=== PATIENT | female | born 1975 | race Caucasian/White ===

== ENCOUNTER → 2016-04-10 | Outpatient (CLI) | payer BC ==
--- NOTE | 2016-04-11 09:17 | MM ---
Reason for exam: screening (asymptomatic). Baseline mammogram. History: Patient is nulliparous. Physical Findings: Nurse did not find any significant physical abnormalities on exam. MG 3D Screening Mammo W/Cad Bilateral CC and MLO view(s) were taken. The breast tissue is heterogeneously dense. This may lower the sensitivity of mammography. Finding: There are typically benign round, diffuse/scattered calcifications in both breasts, greater in the left breast. There is no discrete abnormality. ASSESSMENT: Benign, BI-RAD 2 RECOMMENDATION: Routine screening mammogram of both breasts in 1 year.
== END | disposition home or self-care (01) ==
LOC: RADMAMWWP 07:07
PROVIDERS: ATTEND Obstetrics & Gynecology
DX: Z12.31 Encounter for screening mammogram for malignant neoplasm of breast (principal)
CPT/HCPCS: 77052; 77063; G0202

== ENCOUNTER → 2017-01-03 | Outpatient (CLI) | payer BC ==
[2017-01-03 17:37] LABS: Alternaria alternata IgE <0.10 kU/L; Aspergillus fumagatus IgE <0.10 kU/L; Cat Epith & Dander IgE <0.10 kU/L; Cladosporian herbarum IgE <0.10 kU/L; Dermato. farinae IgE <0.10 kU/L; Maple (Box Elder) IgE <0.10 kU/L; Orchard Grs(Cocksfoot) IgE <0.10 kU/L; Ragweed,Common IgE <0.10 kU/L
[2017-01-03 19:00] LABS: Clam IgE <0.10 kU/L; Egg White IgE <0.10 kU/L; Peanut IgE <0.10 kU/L; Scallop IgE <0.10 kU/L; Soybean IgE <0.10 kU/L
== END | disposition home or self-care (01) ==
LOC: LABWHC1 10:50
PROVIDERS: ATTEND Internal Medicine Critical Care Medicine
DX: R05 Cough (principal)
CPT/HCPCS: 36415; 82785; 86003

== ENCOUNTER → 2017-05-30 | Outpatient (CLI) | payer BC ==
--- NOTE | 2017-05-31 09:08 | MM ---
Reason for exam: screening (asymptomatic). Last mammogram was performed 1 year and 2 months ago. History: Patient is nulliparous. Physical Findings: A clinical breast exam by your physician is recommended on an annual basis and results should be correlated with mammographic findings. MG 3D Screening Mammo W/Cad Bilateral CC and MLO view(s) were taken. Prior study comparison: April 10, 2016, bilateral MG 3d screening mammo w/cad. The breast tissue is heterogeneously dense. This may lower the sensitivity of mammography. There is no discrete abnormality. No significant changes when compared with prior studies. ASSESSMENT: Negative, BI-RAD 1 RECOMMENDATION: Routine screening mammogram of both breasts in 1 year. Manage patient on a clinical basis.
== END | disposition home or self-care (01) ==
LOC: RADMAMWWP 06:59
PROVIDERS: ATTEND Family Medicine
DX: Z12.31 Encounter for screening mammogram for malignant neoplasm of breast (principal)
CPT/HCPCS: 77063; 77067

== ENCOUNTER 2017-12-21 08:56 | Observation (INO) | payer BC ==
[2017-12-21 10:01] LABS: Basophils % (A) 0 %; Eosinophils # (A) 0.1 k/uL (0-0.7); Eosinophils % (A) 1 %; HCT 35.2 % (34.0-46.0); HGB 11.2 gm/dL (11.4-16.0); Hypochromasia Slight; Lymphocytes # (A) 0.8 k/uL (1.0-4.8); Lymphocytes % (A) 10 %; MCH 28.2 pg (25.0-35.0); MCHC 31.7 g/dL (31.0-37.0); Mean Platelet Volume 6.6; Monocytes # (A) 0.4 k/uL (0-1.0); Monocytes % (A) 5 %; Neutrophils # (A) 6.6 k/uL (1.3-7.7); Neutrophils % (A) 83 %; Platelet Count 354 k/uL (150-450); RBC 3.96 m/uL (3.80-5.40); RDW 14.3 % (11.5-15.5)
[2017-12-21 10:16] LABS: INR 1.1 (<1.2); Partial Thromboplastin Time 23.3 sec (22.0-30.0); Prothrombin Time 10.5 sec (9.0-12.0)
[2017-12-21] MEDS ORDERED: KETOROLAC 30 MG/ML 1 ML VIAL IVP STA (10:22)
--- NOTE | 2017-12-21 10:22 | XR ---
EXAMINATION TYPE: XR chest 2V DATE OF EXAM: 12/21/2017 COMPARISON: Chest x-ray October 16, 2011. HISTORY: Chest pain for one month. History of asthma. TECHNIQUE: Frontal and lateral views of the chest are obtained. FINDINGS: There is no focal air space opacity, pleural effusion, or pneumothorax seen. The cardiac silhouette size is within normal limits. The osseous structures are intact. IMPRESSION: No acute cardiopulmonary process. No significant change from prior studies.
[2017-12-21] MEDS ORDERED: SODIUM CHLORIDE 0.9% 500 ML IV ONE (10:23)
--- NOTE | 2017-12-21 10:25 | ED ---
General Adult HPI - General Chief complaint: Chest Pain Stated complaint: A-Fib Time Seen by Provider: 12/21/17 09:04 Source: patient, RN notes reviewed, old records reviewed Mode of arrival: ambulatory Limitations: no limitations - History of Present Illness Initial comments: 42-year-old female presenting with left-sided chest pain. Patient was scheduled for an outpatient stress test this morning, she was unable to make this appointment secondary to worsening pain. She has had this left-sided chest pain for the past one month. It has been. Although somewhat intermittent throughout the day. It is nonexertional. Patient has no known history of CAD. She does have history of A. fib status post ablation. She is not currently on any medication. She does report some dyspnea associated with the pain. Pain is under her left breast radiates to the left shoulder. Pain is described as sharp in nature. - Related Data Home Medications Medication Instructions Recorded Confirmed Acetaminophen Tab [Tylenol Tab] 1,000 mg PO Q6HR 12/21/17 12/21/17 Budesonide [Rhinocort Allergy] 2 spr EA NOSTRIL DAILY 12/21/17 12/21/17 Flecainide Acetate 100 mg PO DAILY PRN 12/21/17 12/21/17 Fluticasone/Vilanterol [Breo 1 puff INHALATION RT-DAILY 12/21/17 12/21/17 Ellipta 100-25 Mcg Inhaler] Metoprolol Tartrate [Lopressor] 25 mg PO DAILY PRN 12/21/17 12/21/17 Omeprazole 20 mg PO DAILY 12/21/17 12/21/17 Allergies Allergy/AdvReac Type Severity Reaction Status Date / Time Tetanus Vaccines and Toxoid Allergy severe Verified 12/21/17 09:11 [Tetanus Vaccines & Toxoid] swelling and redness venom-honey bee Allergy Anaphylaxis Verified 12/21/17 09:11 [bee venom (honey bee)] Androgenic Anabolic Steroid AdvReac Mild Itching Verified 12/21/17 09:11 adhesive AdvReac Itching Verified 12/21/17 09:11 Review of Systems ROS Statement: Those systems with pertinent positive or pertinent negative responses have been documented in the HPI. ROS Other: All systems not noted in ROS Statement are negative. Past Medical History Past Medical History: AFIB Additional Past Medical History / Comment(s): afib History of Any Multi-Drug Resistant Organisms: None Reported Past Surgical History: Adenoidectomy, Cholecystectomy, Tonsillectomy Additional Past Surgical History / Comment(s): right knee, cardiac ablation Past Psychological History: No Psychological Hx Reported Smoking Status: Never smoker Past Alcohol Use History: None Reported Past Drug Use History: None Reported General Exam Limitations: no limitations General appearance: alert, in no apparent distress Head exam: Present: atraumatic, normocephalic Eye exam: Present: normal appearance, PERRL Neck exam: Present: normal inspection, tenderness Respiratory exam: Present: normal lung sounds bilaterally, chest wall tenderness. Absent: respiratory distress, wheezes Cardiovascular Exam: Present: regular rate, normal rhythm GI/Abdominal exam: Present: soft. Absent: distended, tenderness Extremities exam: Present: normal inspection, normal capillary refill. Absent: pedal edema, calf tenderness Back exam: Present: normal inspection, full ROM Neurological exam: Present: alert, oriented X3, CN II-XII intact. Absent: motor sensory deficit Psychiatric exam: Present: normal affect, normal mood Skin exam: Present: warm, dry, intact. Absent: cyanosis, diaphoretic Course Vital Signs 12/21/17 12/21/17 08:58 10:29 Temperature 98.6 F Pulse Rate 103 H 85 Respiratory 22 Rate Blood Pressure 123/79 147/77 O2 Sat by Pulse 99 97 Oximetry EKG Findings - EKG Comments: EKG Findings:: EKG: Normal sinus rhythm, ventricular rate of 82, OK interval 152 , QRS duration 92, QTC 372, QTC 434, no ST segment elevation or depression, there is baseline artifact, no definitive signs of ischemia Medical Decision Making - Medical Decision Making 42-year-old female presenting with left-sided chest pain. Patient was scheduled for a stress test today, she was unable to make this appointment secondary to worsening pain. Workup in the emergency department reveals normal CBC, normal CMP, negative d-dimer, negative initial troponin. Chest x-ray negative for any acute cardiopulmonary disease. Case is discussed with the patient's primary care physician Dr. Carrasco. Plan to admit patient for cardiology consultation, and serial cardiac enzymes. - Lab Data Result diagrams: 12/21/17 08:50 12/21/17 08:50 Lab Results 12/21/17 12/21/17 12/21/17 Range/Units 08:50 08:50 08:50 WBC 8.0 (3.8-10.6) k/uL RBC 3.96 (3.80-5.40) m/uL Hgb 11.2 L (11.4-16.0) gm/dL Hct 35.2 (34.0-46.0) % MCV 89.0 (80.0-100.0) fL MCH 28.2 (25.0-35.0) pg MCHC 31.7 (31.0-37.0) g/dL RDW 14.3 (11.5-15.5) % Plt Count 354 (150-450) k/uL Neutrophils % 83 % Lymphocytes % 10 % Monocytes % 5 % Eosinophils % 1 % Basophils % 0 % Neutrophils # 6.6 (1.3-7.7) k/uL Lymphocytes # 0.8 L (1.0-4.8) k/uL Monocytes # 0.4 (0-1.0) k/uL Eosinophils # 0.1 (0-0.7) k/uL Basophils # 0.0 (0-0.2) k/uL Hypochromasia Slight PT (9.0-12.0) sec INR (<1.2) APTT (22.0-30.0) sec D-Dimer (<0.60) mg/L FEU Sodium 140 (137-145) mmol/L Potassium 4.1 (3.5-5.1) mmol/L Chloride 109 H (98-107) mmol/L Carbon Dioxide 23 (22-30) mmol/L Anion Gap 8 mmol/L BUN 15 (7-17) mg/dL Creatinine 0.86 (0.52-1.04) mg/dL Est GFR (CKD-EPI)AfAm >90 (>60 ml/min/1.73 sqM) Est GFR (CKD-EPI)NonAf 85 (>60 ml/min/1.73 sqM) Glucose 113 H (74-99) mg/dL Calcium 9.4 (8.4-10.2) mg/dL Magnesium 1.7 (1.6-2.3) mg/dL Total Bilirubin 0.5 (0.2-1.3) mg/dL AST 18 (14-36) U/L ALT 21 (9-52) U/L Alkaline Phosphatase 46 (38-126) U/L Total Creatine Kinase 75 (30-135) U/L CK-MB (CK-2) 0.6 (0.0-2.4) ng/mL CK-MB (CK-2) Rel Index 0.8 Troponin I <0.012 (0.000-0.034) ng/mL Total Protein 6.7 (6.3-8.2) g/dL Albumin 3.9 (3.5-5.0) g/dL HCG, Quant <2.4 mIU/mL 12/21/17 12/21/17 Range/Units 08:50 08:50 WBC (3.8-10.6) k/uL RBC (3.80-5.40) m/uL Hgb (11.4-16.0) gm/dL Hct (34.0-46.0) % MCV (80.0-100.0) fL MCH (25.0-35.0) pg MCHC (31.0-37.0) g/dL RDW (11.5-15.5) % Plt Count (150-450) k/uL Neutrophils % % Lymphocytes % % Monocytes % % Eosinophils % % Basophils % % Neutrophils # (1.3-7.7) k/uL Lymphocytes # (1.0-4.8) k/uL Monocytes # (0-1.0) k/uL Eosinophils # (0-0.7) k/uL Basophils # (0-0.2) k/uL Hypochromasia PT 10.5 (9.0-12.0) sec INR 1.1 (<1.2) APTT 23.3 (22.0-30.0) sec D-Dimer 0.20 (<0.60) mg/L FEU Sodium (137-145) mmol/L Potassium (3.5-5.1) mmol/L Chloride (98-107) mmol/L Carbon Dioxide (22-30) mmol/L Anion Gap mmol/L BUN (7-17) mg/dL Creatinine (0.52-1.04) mg/dL Est GFR (CKD-EPI)AfAm (>60 ml/min/1.73 sqM) Est GFR (CKD-EPI)NonAf (>60 ml/min/1.73 sqM) Glucose (74-99) mg/dL Calcium (8.4-10.2) mg/dL Magnesium (1.6-2.3) mg/dL Total Bilirubin (0.2-1.3) mg/dL AST (14-36) U/L ALT (9-52) U/L Alkaline Phosphatase (38-126) U/L Total Creatine Kinase (30-135) U/L CK-MB (CK-2) (0.0-2.4) ng/mL CK-MB (CK-2) Rel Index Troponin I (0.000-0.034) ng/mL Total Protein (6.3-8.2) g/dL Albumin (3.5-5.0) g/dL HCG, Quant mIU/mL Disposition Clinical Impression: Chest pain Disposition: ADMITTED IP TO THIS HOSP Condition: Stable Is patient prescribed a controlled substance at d/c from ED?: No Referrals: Roger Carrasco MD [Primary Care Provider] - 1-2 days Decision to Admit Reason: Admit from EC Decision Date: 12/21/17 Decision Time: 12:07
[2017-12-21 10:26] LABS: ALT 21 U/L (9-52); AST 18 U/L (14-36); Albumin 3.9 g/dL (3.5-5.0); Alkaline Phosphatase 46 U/L (38-126); Anion Gap 8 mmol/L; Blood Urea Nitrogen 15 mg/dL (7-17); Calcium 9.4 mg/dL (8.4-10.2); Carbon Dioxide 23 mmol/L (22-30); Chloride 109 mmol/L (98-107); Glucose 113 mg/dL (74-99); Magnesium 1.7 mg/dL (1.6-2.3); Potassium 4.1 mmol/L (3.5-5.1); Sodium 140 mmol/L (137-145); Total Bilirubin 0.5 mg/dL (0.2-1.3); Total Protein 6.7 g/dL (6.3-8.2)
[2017-12-21 10:27] LABS: Creatine Kinase 75 U/L (30-135)
[2017-12-21 10:38] LABS: Creatine Kinase MB 0.6 ng/mL (0.0-2.4); Troponin I <0.012 ng/mL (0.000-0.034)
[2017-12-21 10:42] LABS: HCG,Quantitative Serum <2.4 mIU/mL
[2017-12-21] MEDS ORDERED: ACETAMINOPHEN TAB 325 MG TAB PO PRN (12:04)
[2017-12-21] MEDS ORDERED: NALOXONE 0.4 MG/ML 1 ML VIAL IV PRN (12:04)
[2017-12-21] MEDS ORDERED: ONDANSETRON 4 MG/2 ML VIAL IVP PRN (12:04)
[2017-12-21] MEDS ORDERED: METOPROLOL TARTRATE 25 MG TAB PO PRN (14:06)
[2017-12-21] MEDS ORDERED: FLECAINIDE 50 MG TAB PO PRN (14:06)
[2017-12-21] MEDS: ACETAMINOPHEN TAB 500 MG TAB PO SCH (18:36)
[2017-12-21] MEDS: IBUPROFEN 400 MG TAB PO PRN (18:37)
[2017-12-21] MEDS ORDERED: TEMAZEPAM 15 MG CAP PO PRN (23:22)
[2017-12-22 00:44] LABS: Creatine Kinase MB 0.4 ng/mL (0.0-2.4); Troponin I <0.012 ng/mL (0.000-0.034)
[2017-12-22 00:56] LABS: Creatine Kinase 58 U/L (30-135)
[2017-12-22] MEDS: ACETAMINOPHEN TAB 500 MG TAB PO SCH ×6 (02:55→23:04)
[2017-12-22] MEDS: PANTOPRAZOLE 40 MG TABLET PO SCH (07:51)
[2017-12-22] MEDS: FLUTICASONE 50MCG/SPRAY NASAL 16GM EA NOSTRIL SCH (07:52)
[2017-12-22] MEDS: SYMBICORT 80-4.5 MCG INHALER INHALATION SCH ×2 (08:09→20:14)
[2017-12-22] MEDS: IBUPROFEN 400 MG TAB PO PRN (09:50)
--- NOTE | 2017-12-22 10:16 | P.CRDCN ---
History of Present Illness Consult date: 12/22/17 History of present illness: This is a 42-year-old female with history of atrial fibrillation and also supra ventricular tachycardia being followed by Dr. Gupta. Patient is currently being treated with when necessary metoprolol and flecainide combination. Over the last month the patient has been having left-sided chest pain. The pain is felt over the entire left chest areas of soreness and tenderness. Not clearly associated with any exertional activities. Some radiation to the neck. Associated with some shortness of breath. She was supposed to have his outpatient stress test but because of continued chest pain patient came to the hospital. Since admission her EKGs have been normal. Cardiac enzyme studies have been negative. Pains are partially relieved with Tylenol and Motrin. Pains appear to be atypical. We'll proceed with a stress echocardiogram to rule out any underlying ischemic heart disease. Review of Systems As per the chart Past Medical History Past Medical History: Atrial Fibrillation, Asthma, Supraventricular Tachycardia (SVT), Syncope Additional Past Medical History / Comment(s): 2004 pt changed light bulb at work and was eletricuted-pt states caused problems with afib/svt/palpitations/ depression and dry eyes. Other hx: sinus problems, pre-ulcers as a child. History of Any Multi-Drug Resistant Organisms: None Reported Past Surgical History: Adenoidectomy, Cardiac Ablation, Cholecystectomy, Orthopedic Surgery Additional Past Surgical History / Comment(s): 06/04/06 cardiac ablation, right knee arthroscopy, D&C with hysteroscopy, possibly an egd as a child, wisdom teeth extractions. Past Anesthesia/Blood Transfusion Reactions: Motion Sickness, Postoperative Nausea & Vomiting (PONV) Additional Past Anesthesia/Blood Transfusion Reaction / Comment(s): Pt states she woke during cardiac ablation. Smoking Status: Never smoker - Past Family History Father Family Medical History: Hypertension Additional Family Medical History / Comment(s): Paternal grandfathe had lung cancer. Mother Family Medical History: No Reported History Additional Family Medical History / Comment(s): Maternal grandmother had heart problems and a pacer. Medications and Allergies Home Medications Medication Instructions Recorded Confirmed Type Acetaminophen Tab [Tylenol Tab] 1,000 mg PO Q6HR 12/21/17 12/21/17 History Budesonide [Rhinocort Allergy] 2 spr EA NOSTRIL DAILY 12/21/17 12/21/17 History Flecainide Acetate 100 mg PO DAILY PRN 12/21/17 12/21/17 History Fluticasone/Vilanterol [Breo 1 puff INHALATION RT-DAILY 12/21/17 12/21/17 History Ellipta 100-25 Mcg Inhaler] Metoprolol Tartrate [Lopressor] 25 mg PO DAILY PRN 12/21/17 12/21/17 History Omeprazole 20 mg PO DAILY 12/21/17 12/21/17 History Allergies Allergy/AdvReac Type Severity Reaction Status Date / Time Tetanus Vaccines and Toxoid Allergy severe Verified 12/21/17 09:11 [Tetanus Vaccines & Toxoid] swelling and redness venom-honey bee Allergy Anaphylaxis Verified 12/21/17 09:11 [bee venom (honey bee)] Androgenic Anabolic Steroid AdvReac Mild Itching Verified 12/21/17 09:11 adhesive AdvReac Itching Verified 12/21/17 09:11 Physical Exam Vitals: Vital Signs Temp Pulse Pulse Pulse Resp BP BP 12/22/17 08:00 98.7 F 74 18 118/79 12/22/17 03:50 16 12/22/17 03:15 98.3 F 65 16 102/62 12/21/17 23:39 16 12/21/17 23:15 98.1 F 76 16 103/66 12/21/17 20:00 82 16 12/21/17 19:20 98.8 F 82 16 121/80 12/21/17 16:00 18 12/21/17 15:49 98.6 F 64 18 115/74 12/21/17 12:55 97.5 F L 77 18 131/86 12/21/17 12:12 97.5 F L 70 20 127/78 12/21/17 10:29 85 147/77 Pulse Ox 12/22/17 08:00 98 12/22/17 03:50 12/22/17 03:15 99 12/21/17 23:39 12/21/17 23:15 98 12/21/17 20:00 12/21/17 19:20 98 12/21/17 16:00 12/21/17 15:49 99 12/21/17 12:55 100 12/21/17 12:12 97 12/21/17 10:29 97 Intake and Output 12/21/17 12/22/17 12/22/17 22:59 06:59 14:59 Other: Voiding Method Toilet Toilet # Voids 2 2 GENERAL EXAM: Patient is alert and oriented and doesn't appear to be in any acute distress HEENT: Normocephalic. Normal reaction of pupils, equal size, normal range of extraocular motion. No erythema or exudates in the throat. NECK: No masses, no nuchal rigidity. CHEST: No chest wall deformity. LUNGS: Equal air entry with no crackles or wheeze. HEART: S1 and S2 normal with no audible mumurs or gallops. Regular rhythm, femorals equal on both sides.. ABDOMEN: No hepatosplenomegaly, normal bowel sounds, no guarding or rigidity. SKIN: No rashes CENTRAL NERVOUS SYSTEM: No focal deficits. EXTREMITIES: No cyanosis, clubbing or edema. Results 12/21/17 08:50 12/21/17 08:50 Cardiac Enzymes 12/21/17 12/21/17 12/21/17 Range/Units 08:50 08:50 13:59 AST 18 (14-36) U/L CK-MB (CK-2) 0.6 (0.0-2.4) ng/mL Troponin I <0.012 <0.012 (0.000-0.034) ng/mL 12/21/17 Range/Units 23:33 AST (14-36) U/L CK-MB (CK-2) 0.4 (0.0-2.4) ng/mL Troponin I <0.012 (0.000-0.034) ng/mL Coagulation 12/21/17 Range/Units 08:50 PT 10.5 (9.0-12.0) sec APTT 23.3 (22.0-30.0) sec Comprehensive Metabolic Panel 12/21/17 Range/Units 08:50 Sodium 140 (137-145) mmol/L Potassium 4.1 (3.5-5.1) mmol/L Chloride 109 H (98-107) mmol/L Carbon Dioxide 23 (22-30) mmol/L BUN 15 (7-17) mg/dL Creatinine 0.86 (0.52-1.04) mg/dL Glucose 113 H (74-99) mg/dL Calcium 9.4 (8.4-10.2) mg/dL AST 18 (14-36) U/L ALT 21 (9-52) U/L Alkaline Phosphatase 46 (38-126) U/L Total Protein 6.7 (6.3-8.2) g/dL Albumin 3.9 (3.5-5.0) g/dL Current Medications Generic Name Dose Route Start Last Admin Trade Name Freq PRN Reason Stop Dose Admin Acetaminophen 1,000 mg 12/21/17 18:00 12/22/17 07:51 Tylenol Tab PO 1,000 mg Q6HR QUENTIN Administration Budesonide/Formoterol Fumarate 2 puff 12/22/17 08:00 12/22/17 08:09 Symbicort 80-4.5 Mcg Inhaler INHALATION 2 puff RT-BID QUENTIN Administration Flecainide Acetate 100 mg 12/21/17 14:06 Tambocor PO DAILY PRN PALPITIONS Fluticasone Propionate 1 spray 12/22/17 09:00 12/22/17 07:52 Flonase Nasal [place] EA NOSTRIL Not Given DAILY [facility] Ibuprofen 400 mg 12/21/17 12:04 12/22/17 09:50 Motrin PO 400 mg Q6HR PRN Administration Mild Pain or Fever > 100.5 Metoprolol Tartrate 25 mg 12/21/17 14:06 Lopressor PO DAILY PRN PALPITIONS Naloxone HCl 0.2 mg 12/21/17 12:04 Narcan IV Q2M PRN Opioid Reversal Ondansetron HCl 4 mg 12/21/17 12:04 Zofran IVP Q8HR PRN Nausea And Vomiting Pantoprazole Sodium 40 mg 12/22/17 07:30 12/22/17 07:51 Protonix PO 40 mg [id number] QUENTIN Administration Temazepam 15 mg 12/21/17 23:22 12/21/17 23:28 Restoril PO 15 mg HS PRN Administration Insomnia Intake and Output 12/21/17 12/22/17 12/22/17 22:59 06:59 14:59 Other: Voiding Method Toilet Toilet # Voids 2 2 12/21/17 08:50 12/21/17 08:50 EKG Interpretations (text) Sinus rhythm Assessment and Plan (1) History of atrial fibrillation Current Visit: Yes Status: Acute Code(s): Z86.79 - PERSONAL HISTORY OF OTHER DISEASES OF THE CIRCULATORY SYSTEM SNOMED Code(s): 472890667 (2) Chest pain Current Visit: Yes Status: Acute Code(s): R07.9 - CHEST PAIN, UNSPECIFIED SNOMED Code(s): 66966448 Plan: Patient chest pains are atypical. Cardiac enzyme studies are negative. EKG did not reveal any acute changes. We will proceed with stress echo.
--- NOTE | 2017-12-22 12:08 | P.HPIM ---
History of Present Illness 42-year-old pleasant female with a known history of SVT atrial fibrillation the past status post dilation by Dr. Shamar shirley with complaints of on and off chest pain has been going on for last few days varying duration LAD any last anywhere between 20 minutes to an hour sharp pain under the breast area left side radiating to the neck and left shoulder area disposition lightheadedness shortness of breath nonpleuritic denied any cough associated with that doesn't change with the chest wall movement although reproducible on exam. Denied any fever chills chest pain is of moderate severity partially relieved by Tylenol and Motrin. Patient denied any previous neck issues. Did have some radiation to neck. Patient was also complaining of some shortness of breath associated with that questionable pedal edema although not present at this time. Patient was evaluated cardiology EKG no significant abnormality patient is supposed to have a stress test as an outpatient. Review of Systems REVIEW OF SYSTEMS: CONSTITUTIONAL: No fever, no malaise, no fatigue. HEENT: No recent visual problems or hearing problems. Denied any sore throat. CARDIOVASCULAR: As mentioned in HPI PULMONARY, no cough, no hemoptysis. GASTROINTESTINAL: No diarrhea, no vomiting, no abdominal pain. Normoactive bowel sounds. NEUROLOGICAL: No headaches, no weakness, no numbness. HEMATOLOGICAL: Denies any bleeding or petechiae. GENITOURINARY: Denies any burning micturition, frequency, or urgency. MUSCULOSKELETAL/RHEUMATOLOGICAL: Denies any joint pain, swelling, or any muscle pain. ENDOCRINE: Denies any polyuria or polydipsia. The rest of the 14-point review of systems is negative. Past Medical History Past Medical History: Atrial Fibrillation, Asthma, Supraventricular Tachycardia (SVT), Syncope Additional Past Medical History / Comment(s): 2004 pt changed light bulb at work and was eletricuted-pt states caused problems with afib/svt/palpitations/ depression and dry eyes. Other hx: sinus problems, pre-ulcers as a child. History of Any Multi-Drug Resistant Organisms: None Reported Past Surgical History: Adenoidectomy, Cardiac Ablation, Cholecystectomy, Orthopedic Surgery Additional Past Surgical History / Comment(s): 06/04/06 cardiac ablation, right knee arthroscopy, D&C with hysteroscopy, possibly an egd as a child, wisdom teeth extractions. Past Anesthesia/Blood Transfusion Reactions: Motion Sickness, Postoperative Nausea & Vomiting (PONV) Additional Past Anesthesia/Blood Transfusion Reaction / Comment(s): Pt states she woke during cardiac ablation. Smoking Status: Never smoker - Past Family History Father Family Medical History: Hypertension Additional Family Medical History / Comment(s): Paternal grandfathe had lung cancer. Mother Family Medical History: No Reported History Additional Family Medical History / Comment(s): Maternal grandmother had heart problems and a pacer. Medications and Allergies Home Medications Medication Instructions Recorded Confirmed Type Acetaminophen Tab [Tylenol Tab] 1,000 mg PO Q6HR 12/21/17 12/21/17 History Budesonide [Rhinocort Allergy] 2 spr EA NOSTRIL DAILY 12/21/17 12/21/17 History Flecainide Acetate 100 mg PO DAILY PRN 12/21/17 12/21/17 History Fluticasone/Vilanterol [Breo 1 puff INHALATION RT-DAILY 12/21/17 12/21/17 History Ellipta 100-25 Mcg Inhaler] Metoprolol Tartrate [Lopressor] 25 mg PO DAILY PRN 12/21/17 12/21/17 History Omeprazole 20 mg PO DAILY 12/21/17 12/21/17 History Allergies Allergy/AdvReac Type Severity Reaction Status Date / Time Tetanus Vaccines and Toxoid Allergy severe Verified 12/21/17 09:11 [Tetanus Vaccines & Toxoid] swelling and redness venom-honey bee Allergy Anaphylaxis Verified 12/21/17 09:11 [bee venom (honey bee)] Androgenic Anabolic Steroid AdvReac Mild Itching Verified 12/21/17 09:11 adhesive AdvReac Itching Verified 12/21/17 09:11 Physical Exam Vitals: Vital Signs Temp Pulse Pulse Pulse Resp BP BP 12/22/17 08:00 98.7 F 74 18 118/79 12/22/17 03:50 16 12/22/17 03:15 98.3 F 65 16 102/62 12/21/17 23:39 16 12/21/17 23:15 98.1 F 76 16 103/66 12/21/17 20:00 82 16 12/21/17 19:20 98.8 F 82 16 121/80 12/21/17 16:00 18 12/21/17 15:49 98.6 F 64 18 115/74 12/21/17 12:55 97.5 F L 77 18 131/86 12/21/17 12:12 97.5 F L 70 20 127/78 Pulse Ox 12/22/17 08:00 98 12/22/17 03:50 12/22/17 03:15 99 12/21/17 23:39 12/21/17 23:15 98 12/21/17 20:00 12/21/17 19:20 98 12/21/17 16:00 12/21/17 15:49 99 12/21/17 12:55 100 12/21/17 12:12 97 Intake and Output 12/21/17 12/22/17 12/22/17 22:59 06:59 14:59 Other: Voiding Method Toilet Toilet # Voids 2 2 PHYSICAL EXAMINATION: GENERAL: The patient is alert and oriented x3, not in any acute distress. Well developed, well nourished. HEENT: Pupils are round and equally reacting to light. EOMI. No scleral icterus. No conjunctival pallor. Normocephalic, atraumatic. No pharyngeal erythema. No thyromegaly. CARDIOVASCULAR: S1 and S2 present. No murmurs, rubs, or gallops. Reproducible chest pain PULMONARY: Chest is clear to auscultation, no wheezing or crackles. ABDOMEN: Soft, nontender, nondistended, normoactive bowel sounds. No palpable organomegaly. MUSCULOSKELETAL: No joint swelling or deformity. EXTREMITIES: No cyanosis, clubbing, or pedal edema. NEUROLOGICAL: Gross neurological examination did not reveal any focal deficits. SKIN: No rashes. Results CBC & Chem 7: 12/21/17 08:50 12/21/17 08:50 Thrombosis Risk Factor Assmnt - Choose All That Apply Any of the Below Risk Factors Present?: Yes Each Factor Represents 1 point: Obesity (BMI >25) Other Risk Factors: No Other congenital or acquired thrombophilia - If yes, enter type in comment: No Thrombosis Risk Factor Assessment Total Risk Factor Score: 1 Thrombosis Risk Factor Assessment Level: Low Risk Assessment and Plan Plan: -Chest pain: Acute coronary syndromes was ruled out, patient will undergo stress test on Sunday does have typical as well as atypical features of cardiac chest pain. -History of SVT and atrial fibrillation in the past status post ablation not on any anticoagulation -Asthma without any acute exacerbation patient is not a smoker
[2017-12-22] MEDS: HYDROcodone/APAP 5-325MG 1 EACH TAB PO PRN (16:34)
[2017-12-23] MEDS: PANTOPRAZOLE 40 MG TABLET PO SCH (06:45)
[2017-12-23] MEDS: ACETAMINOPHEN TAB 500 MG TAB PO SCH ×4 (06:45→23:04)
[2017-12-23 07:13] LABS: Basophils % (A) 1 %; Eosinophils # (A) 0.1 k/uL (0-0.7); Eosinophils % (A) 2 %; HCT 36.9 % (34.0-46.0); HGB 11.3 gm/dL (11.4-16.0); Hypochromasia Slight; Lymphocytes # (A) 1.5 k/uL (1.0-4.8); Lymphocytes % (A) 26 %; MCH 27.5 pg (25.0-35.0); MCHC 30.6 g/dL (31.0-37.0); MCV 89.6 fL (80.0-100.0); Mean Platelet Volume 6.8; Monocytes # (A) 0.4 k/uL (0-1.0); Monocytes % (A) 7 %; Neutrophils # (A) 3.5 k/uL (1.3-7.7); Neutrophils % (A) 62 %; Platelet Count 320 k/uL (150-450); RBC 4.11 m/uL (3.80-5.40); RDW 14.4 % (11.5-15.5); WBC 5.7 k/uL (3.8-10.6)
[2017-12-23 07:24] LABS: Anion Gap 7 mmol/L; Blood Urea Nitrogen 17 mg/dL (7-17); Calcium 9.3 mg/dL (8.4-10.2); Carbon Dioxide 25 mmol/L (22-30); Chloride 107 mmol/L (98-107); Glucose 95 mg/dL (74-99); Potassium 4.5 mmol/L (3.5-5.1); Sodium 139 mmol/L (137-145)
[2017-12-23] MEDS: SYMBICORT 80-4.5 MCG INHALER INHALATION SCH ×2 (08:13→19:59)
[2017-12-23] MEDS: HYDROcodone/APAP 5-325MG 1 EACH TAB PO PRN ×2 (08:15→15:51)
--- NOTE | 2017-12-23 10:46 | P.PN ---
Subjective Progress Note Date: 12/23/17 This is a 42-year-old female with history of atrial fibrillation and also supra ventricular tachycardia being followed by Dr. Gupta. Patient is currently being treated with when necessary metoprolol and flecainide combination. Over the last month the patient has been having left-sided chest pain. The pain is felt over the entire left chest areas of soreness and tenderness. Not clearly associated with any exertional activities. Some radiation to the neck. Associated with some shortness of breath. She was supposed to have his outpatient stress test but because of continued chest pain patient came to the hospital. Since admission her EKGs have been normal. Cardiac enzyme studies have been negative. Pains are partially relieved with Tylenol and Motrin. Pains appear to be atypical. We'll proceed with a stress echocardiogram to rule out any underlying ischemic heart disease. 12/23/2017. The patient continues to describe anterior chest discomfort. She does some relief of the pain by lying flat in bed. She is being treated with Motrin and [place] as needed. Denies any shortness of breath, diaphoresis or nausea. EKG was normal and serial troponins negative. She is scheduled for stress echo tomorrow morning. She remains hemodynamically stable and in a normal sinus mechanism. No arrhythmia overnight. Objective - Vital Signs Vital signs: Vital Signs Temp 97.5 F L 12/23/17 04:00 Pulse 65 12/23/17 04:00 Resp 16 12/23/17 04:00 BP 115/57 12/23/17 04:00 Pulse Ox 98 12/23/17 08:13 Intake & Output 12/22/17 12/23/17 12/23/17 18:59 06:59 18:59 Intake Total 550 Balance 550 Intake: Oral 550 Other: Voiding Method Toilet Toilet # Voids 2 - Exam GENERAL EXAM: Patient is alert and oriented and doesn't appear to be in any acute distress HEENT: Normocephalic. Normal reaction of pupils, equal size, normal range of extraocular motion. No erythema or exudates in the throat. NECK: No masses, no nuchal rigidity. CHEST: No chest wall deformity. No tenderness. LUNGS: Equal air entry with no crackles or wheeze. HEART: S1 and S2 normal with no audible mumurs or gallops. Regular rhythm, femorals equal on both sides.. ABDOMEN: No hepatosplenomegaly, normal bowel sounds, no guarding or rigidity. SKIN: No rashes CENTRAL NERVOUS SYSTEM: No focal deficits. EXTREMITIES: No cyanosis, clubbing or edema. - Labs CBC & Chem 7: 12/23/17 06:50 12/23/17 06:50 Labs: Abnormal Lab Results - Last 24 Hours (Table) 12/23/17 Range/Units 06:50 Hgb 11.3 L (11.4-16.0) gm/dL MCHC 30.6 L (31.0-37.0) g/dL Assessment and Plan Assessment: Atypical chest pain History of arrhythmia in the form of SVT and atrial fibrillation Asthma Obesity Plan: Continue current medication regimen. Continue with Motrin and [place] for pain. Telemetry monitoring. We will proceed with stress echo tomorrow morning. Patient will be nothing by mouth after midnight. Further recommendations will he made depending on these results. ROD PLACER note has been reviewed. Agree with documented findings and plan of care. Patient was seen and examined.
[2017-12-23] MEDS: FLUTICASONE 50MCG/SPRAY NASAL 16GM EA NOSTRIL SCH (15:51)
--- NOTE | 2017-12-24 00:57 | P.PN ---
Subjective Progress Note Date: 12/23/17 Principal diagnosis: Chest pain 42-year-old pleasant female with a known history of SVT atrial fibrillation the past status post dilation by Dr. Shamar shirley with complaints of on and off chest pain has been going on for last few days varying duration LAD any last anywhere between 20 minutes to an hour sharp pain under the breast area left side radiating to the neck and left shoulder area disposition lightheadedness shortness of breath nonpleuritic denied any cough associated with that doesn't change with the chest wall movement although reproducible on exam. Denied any fever chills chest pain is of moderate severity partially relieved by Tylenol and Motrin. Patient denied any previous neck issues. Did have some radiation to neck. Patient was also complaining of some shortness of breath associated with that questionable pedal edema although not present at this time. Patient was evaluated cardiology EKG no significant abnormality patient is supposed to have a stress test as an outpatient. 12/23/2017 Patient says is still having chest pain mainly left retrosternal radiating to the left arm and neck. Chest pain somewhat improves with lying down flat. Denied any shortness of breath. No nausea vomiting or abdominal pain. Patient is being continued on Motrin and Dorr. Serial EKG and troponins 3 negative. D-dimer not elevated. Cardiology is planning for stress echocardiogram tomorrow. Otherwise patient denied any cough or sputum production. No fever no chills. No other acute overnight issues. No arrhythmia noted in the telemetry. Current medications reviewed. Objective - Vital Signs Vital signs: Vital Signs Temp 97.3 F L 12/23/17 10:45 Pulse 66 12/23/17 10:45 Resp 16 12/23/17 10:45 BP 107/56 12/23/17 10:45 Pulse Ox 98 12/23/17 10:45 Intake & Output 12/22/17 12/23/17 12/23/17 18:59 06:59 18:59 Intake Total 550 200 Balance 550 200 Intake: Oral 550 200 Other: Voiding Method Toilet Toilet Toilet # Voids 2 - Exam PHYSICAL EXAMINATION: Patient is lying in the bed comfortably, no acute distress, awake alert and oriented.. HEENT: Normocephalic. Neck is supple. Pupils reactive. Nostrils clear. Oral cavity is moist. Ears reveal no drainage. Neck reveals no JVD, carotid bruits, or thyromegaly. CHEST EXAMINATION: Trachea is central. Symmetrical expansion. Lung augustine clear to auscultation and percussion. CARDIAC: Normal S1, S2 with no gallops. No murmurs ABDOMEN: Soft. Bowel sounds normal. No organomegaly. No abdominal bruits. Extremities: reveal no edema. No clubbing or cyanosis Neurologically awake, alert, oriented x3 with well-coordinated movements. No focal deficits noted Skin: No rash or skin lesions. Psychiatric: Coperative. Nonsuicidal Musculoskeletal: No joint swelling or deformity. Normal range of motion. - Labs CBC & Chem 7: 12/23/17 06:50 12/23/17 06:50 Labs: Abnormal Lab Results - Last 24 Hours (Table) 12/23/17 Range/Units 06:50 Hgb 11.3 L (11.4-16.0) gm/dL MCHC 30.6 L (31.0-37.0) g/dL Assessment and Plan Assessment: Atypical chest pain. Ruled out ACS. Scheduled for stress echocardiogram on Sunday. History of SVT and atrial fibrillation status post ablation History of electrocution Asthma without exacerbation. DVT prophylaxis Plan: Patient will be continued on telemetry monitoring. Patient will be continued on flecainide. Continue with pain management in the form of Dorr and Motrin. Stress echocardiogram tomorrow. DVT prophylaxis. Further recommendations based on the clinical course. Time with Patient: Greater than 30
[2017-12-24] MEDS: ACETAMINOPHEN TAB 500 MG TAB PO SCH ×2 (05:20→13:38)
[2017-12-24] MEDS: PANTOPRAZOLE 40 MG TABLET PO SCH (06:20)
[2017-12-24 06:28] LABS: Basophils % (A) 1 %; Eosinophils # (A) 0.1 k/uL (0-0.7); Eosinophils % (A) 3 %; HCT 35.9 % (34.0-46.0); HGB 11.3 gm/dL (11.4-16.0); Hypochromasia Slight; Lymphocytes # (A) 1.6 k/uL (1.0-4.8); Lymphocytes % (A) 31 %; MCH 28.1 pg (25.0-35.0); MCHC 31.5 g/dL (31.0-37.0); Mean Platelet Volume 6.9; Monocytes # (A) 0.4 k/uL (0-1.0); Monocytes % (A) 8 %; Neutrophils # (A) 2.9 k/uL (1.3-7.7); Neutrophils % (A) 56 %; Platelet Count 316 k/uL (150-450); RBC 4.04 m/uL (3.80-5.40); RDW 14.2 % (11.5-15.5); WBC 5.2 k/uL (3.8-10.6)
[2017-12-24 06:42] LABS: Anion Gap 9 mmol/L; Blood Urea Nitrogen 17 mg/dL (7-17); Calcium 9.5 mg/dL (8.4-10.2); Carbon Dioxide 27 mmol/L (22-30); Chloride 102 mmol/L (98-107); Glucose 100 mg/dL (74-99); Potassium 4.7 mmol/L (3.5-5.1); Sodium 138 mmol/L (137-145)
[2017-12-24] MEDS: SYMBICORT 80-4.5 MCG INHALER INHALATION SCH (07:47)
[2017-12-24 07:48] VITALS: BP 112/66; RESP 16
[2017-12-24] MEDS: HYDROcodone/APAP 5-325MG 1 EACH TAB PO PRN (07:55)
[2017-12-24] MEDS ORDERED: HEPARIN SODIUM,PORCINE 5,000 UNIT/ML 1 ML VIAL SQ SCH (08:00)
[2017-12-24] MEDS: NITROGLYCERIN SL TABS 0.4 MG TAB SUBLINGUAL ONE ×2 (12:29→12:37)
[2017-12-24 12:31] VITALS: PULSE 74; TEMP 97.8
[2017-12-24] MEDS: FLUTICASONE 50MCG/SPRAY NASAL 16GM EA NOSTRIL SCH (12:36)
--- NOTE | 2017-12-24 12:51 | P.STRESS ---
- Stress Test Note Stress Test Results/Findings: Exam Performed: stress echo exercise Exam Date: 12/24/17 Reason for Exam: cp Height: 5 ft 10 in Weight: 105.6 kg Protocol: luis Stage: 3 Duration of Exercise: 8 min Resting Heart Rate: 73 Resting Blood Pressure: 132/63 Maximum Achieved Heart Rate: 154 Maximum Achieved Blood Pressure: 172/80 85% PMHR: 153 100% PMHR: 180 METS: 86 Technologist Comment: Stress Test Results/Findings: This is a 42-year-old female with history of chest pains and palpitations being evaluated for cardiac status. Stress data: Baseline EKG showed a sinus rhythm with normal CO interval and QRS duration. Blood pressure at rest is 132/63 with a pulse rate of 73. Patient walked on the Luis protocol for 9 minutes achieving a maximum heart rate of 154 with a blood pressure 172/80. EKGs taken during and after the stress test did not reveal any changes to sized ischemia. Rare PVCs were noted during exercise. Echo data. Her baseline echo images show normal wall motion and thickening. An exercise echo images showed augmentation of wall motion and thickening in all segments. Final impression: #1. Negative stress test #2. Negative stress echo.
--- NOTE | 2017-12-24 13:35 | P.PN ---
Subjective Patient is seen and examined resting comfortably laying flat in bed with mother at the bedside. She just completed her stress echocardiogram which was negative for stress-induced cardiac ischemic changes. She continues to complain of chest discomfort. Symptoms are most likely related to musculoskeletal strain. Blood pressure 112/66 heart rate 74 afebrile maintaining oxygen saturation on room air. She denies shortness of breath, dizziness, nausea, vomiting or palpitations. Objective - Vital Signs Vital signs: Vital Signs Temp 97.8 F 12/24/17 12:25 Pulse 74 12/24/17 12:25 Resp 16 12/24/17 12:25 BP 112/66 12/24/17 12:25 Pulse Ox 98 12/24/17 12:25 Intake & Output 12/23/17 12/24/17 12/24/17 18:59 06:59 18:59 Intake Total 750 300 Balance 750 300 Weight 105.6 kg Intake: Oral 750 300 Other: Voiding Method Toilet Toilet # Voids 2 2 - Exam GENERAL: Well-appearing, well-nourished and in no acute distress. NECK: Supple without JVD or thyromegaly. LUNGS: Breath sounds clear to auscultation bilaterally. Respiration equal and unlabored. No wheezes, rales or rhonchi. HEART: Regular rate and rhythm without murmurs, rubs or gallops. S1 and S2 heard. EXTREMITIES: Normal range of motion, no edema. No clubbing or cyanosis. Peripheral pulses intact. - Labs CBC & Chem 7: 12/24/17 05:55 12/24/17 05:55 Labs: Abnormal Lab Results - Last 24 Hours (Table) 12/24/17 12/24/17 Range/Units 05:55 05:55 Hgb 11.3 L (11.4-16.0) gm/dL Glucose 100 H (74-99) mg/dL Assessment and Plan Assessment: ASSESSMENT Chest pain, atypical. An acute coronary event has been ruled out with no EKG evidence of ischemia and negative cardiac enzymes. History of arrhythmia in the form of SVT and atrial fibrillation Asthma Obesity, BMI 33.4 PLAN Patient is stable from a cardiac perspective with a negative stress echocardiogram. She is requesting a refill of her flecainide and Lopressor which will be sent her pharmacy electronically. Follow-up with Dr. Gupta at next regularly scheduled appointment. Nurse Practitioner note has been reviewed, I agree with a documented findings and plan of care. Patient was seen and examined.
--- NOTE | 2017-12-24 18:18 | ECHOF ---
Referral Reason:chest pain MEASUREMENTS -------- HEIGHT: 177.8 cm WEIGHT: 105.2 kg BP: 112/66 RVIDd: 3.3 cm (< 3.3) IVSd: 1.1 cm (0.6 - 1.1) LVIDd: 3.9 cm (3.9 - 5.3) LVPWd: 1.2 cm (0.6 - 1.1) IVSs: 1.3 cm LVIDs: 2.5 cm LVPWs: 1.4 cm LAESV Index (A-L): 18.16 ml/m Ao Diam: 2.9 cm (2.0 - 3.7) AV Cusp: 2.2 cm (1.5 - 2.6) LA Diam: 3.2 cm (2.7 - 3.8) EPSS: 0.4 cm MV E Ruddy: 0.86 m/s MV DecT: 302 ms MV A Ruddy: 0.71 m/s MV E/A Ratio: 1.21 RAP: 5.00 mmHg RVSP: 18.35 mmHg MV EF SLOPE: 132.12 mm/s (70 - 150) MV EXCURSION: 1.95 cm (> 18.000) FINDINGS -------- Sinus rhythm. This was a technically good study. The left ventricular size is normal. There is borderline concentric left ventricular hypertrophy. Overall left ventricular systolic function is normal with, an EF between 55 - 60 %. The right ventricle is normal in size and function. Normal LA size by volume 22+/-6 ml/m2. The right atrium is normal in size. The aortic valve is trileaflet, and appears structurally normal. No aortic stenosis or regurgitation. The mitral valve leaflets are mildly thickened. There is trace to mild mitral regurgitation. Trace tricuspid regurgitation present. Right ventricular systolic pressure is normal at < 35 mmHg. There is no evidence of pulmonary hypertension. Trace/mild (physiologic) pulmonic regurgitation. The aortic root size is normal. Normal inferior vena cava with normal inspiratory collapse consistent with estimated right atrial pre ssure of 5 mmHg. There is no pericardial effusion. CONCLUSIONS -------- 1. Sinus rhythm. 2. This was a technically good study. 3. The left ventricular size is normal. 4. There is borderline concentric left ventricular hypertrophy. 5. Overall left ventricular systolic function is normal with, an EF between 55 - 60 %. 6. Normal LA size by volume 22+/-6 ml/m2. 7. The aortic valve is trileaflet, and appears structurally normal. No aortic stenosis or regurgitati on. 8. The mitral valve leaflets are mildly thickened. 9. There is trace to mild mitral regurgitation. 10. Trace tricuspid regurgitation present. 11. Right ventricular systolic pressure is normal at < 35 mmHg. 12. There is no evidence of pulmonary hypertension. 13. Trace/mild (physiologic) pulmonic regurgitation. 14. The aortic root size is normal. 15. There is no pericardial effusion. TRAVEL CLERK: Zenon Kirk RDCS
--- NOTE | 2017-12-26 12:17 | ECHOS ---
Stress Test Results/Findings: Exam Performed: stress echo exercise Exam Date: 12/24/17 Reason for Exam: cp Height: 5 ft 10 in Weight: 105.6 kg Protocol: luis Stage: 3 Duration of Exercise: 8 min Resting Heart Rate: 73 Resting Blood Pressure: 132/63 Maximum Achieved Heart Rate: 154 Maximum Achieved Blood Pressure: 172/80 85% PMHR: 153 100% PMHR: 180 METS: 86 Technologist Comment: Stress Test Results/Findings: This is a 42-year-old female with history of chest pains and palpitations being evaluated for cardiac status. Stress data: Baseline EKG showed a sinus rhythm with normal [place] interval and QRS duration. Blood pressure at rest is 132/63 with a pulse rate of 73. Patient walked on the Luis protocol for 9 minutes achieving a maximum heart rate of 154 with a blood pressure 172/80. EKGs taken during and after the stress test did not reveal any changes to sized ischemia. Rare PVCs were noted during exercise. Echo data. Her baseline echo images show normal wall motion and thickening. An exercise echo images showed augmentation of wall motion and thickening in all segments. Final impression: #1. Negative stress test #2. Negative stress echo. BAEN
== END 2017-12-24 16:25 | disposition home or self-care (01) ==
LOC: EC 08:56 → 3OBS 12:04 → 3SUR 18:46 → 6SEL 12-22 18:00
PROVIDERS: ADMIT Family Medicine; ATTEND Family Medicine
DX: R07.89 Other chest pain (principal); I48.91 Unspecified atrial fibrillation; I47.1 Supraventricular tachycardia; J45.909 Unspecified asthma, uncomplicated; H04.123 Dry eye syndrome of bilateral lacrimal glands; E66.9 Obesity, unspecified; Z68.33 Body mass index [BMI] 33.0-33.9, adult; Z79.51 Long term (current) use of inhaled steroids; Z79.899 Other long term (current) drug therapy; Z91.030 Bee allergy status; Z88.7 Allergy status to serum and vaccine; Z88.8 Allergy status to other drugs, medicaments and biological substances; Z91.048 Other nonmedicinal substance allergy status; Z87.828 Personal history of other (healed) physical injury and trauma; Z90.49 Acquired absence of other specified parts of digestive tract; Z82.49 Family history of ischemic heart disease and other diseases of the circulatory system; Z80.1 Family history of malignant neoplasm of trachea, bronchus and lung
CPT/HCPCS: 96361; 96374; 99285; 36415; 94640 ×5; 94760; 93005; 93306; 93351; 85379; 80053; 80048 ×2; 82550; 82553; 83735; 84484; 85025 ×3; 85610; 85730; 84702; 71046; G0378 ×4; J1885

== ENCOUNTER → 2018-01-10 | Day surgery (SDC) | payer BC ==
[2018-01-08 15:41] VITALS: BMI 33.3
[~2018-01-10] MED LIST: GLYCOPYRROLATE 0.2 MG/ML 2 ML VIAL ONE; LACTATED RINGERS 1,000 ML IV SCH; LIDOCAINE 1% 20 ML VIAL (10MG/ML) FOR IV START INTRADERMA ONE; LIDOCAINE 1% INJ 10MG/ML (20 ML MDV) ONE; PROPOFOL 10 MG/ML 20 ML VIAL IV ONE
[2018-01-10 11:34] VITALS: TEMP 98.2
--- NOTE | 2018-01-10 13:47 | P.PCN ---
Date of Procedure: 01/10/18 Procedure(s) Performed: Procedure: Esophagogastroduodenoscopy and biopsy. Preoperative diagnosis: Atypical chest pain. Postoperative diagnosis: 1. Very small sliding hiatal hernia with low grade distal esophagitis. 2. Mild antral gastritis. 3. Multiple biopsies obtained from the duodenum, antrum and esophagus. Preparation sedation: Were provided by anesthesia. Brief clinical history: The patient is a 43-year-old female who is referred for this evaluation because of atypical chest pain of 1 month duration. The patient has history of asthma and has been taking omeprazole for the possibility of reflux contributing to her asthma. Her chest pain was evaluated for possible cardiac etiology in light of her history of intermittent atrial fibrillation and tachycardia and that was negative. She denied dysphagia, odynophagia or bleeding. This evaluation is to assess for esophagitis or complicated reflux disease. Procedure: With the patient on her left lateral decubitus position and after informed consent and adequate sedation, the Olympus-GIF 160 video upper endoscope was used and was advanced under direct vision through the cricopharyngeus down the esophagus. GE junction was around 40 cm from the incisors and there was a very small sliding hiatal hernia less than 1 cm in size. The distal esophagus showed a short thin linear erosion but there were no ulcers or strictures or Quinones's esophagus. The endoscope was then passed into the stomach which was insufflated with air and inspected in detail including the retroflex view in the cardia. There was some mottling and erythema in the antrum but no ulcers or erosions. Pyloric channel, duodenal bulb, post bulbar area and descending duodenum appeared within normal limits. Because of her symptoms, I obtained biopsies from the duodenum, antrum and esophagus then the endoscope was withdrawn. The patient tolerated the procedure well. Plan: The patient was reassured. Will await biopsy results. She will continue her omeprazole and she will follow-up with you as planned. Further plans based on her course and biopsy results. I will be happy to see in the future if her symptoms persist.
[2018-01-10 13:50] VITALS: RESP 18
[2018-01-10 14:10] VITALS: BP 124/67; PULSE 78
== END ==
LOC: ORWHC2ENDO 11:03
DX: K29.50 Unspecified chronic gastritis without bleeding (principal); K21.9 Gastro-esophageal reflux disease without esophagitis; K44.9 Diaphragmatic hernia without obstruction or gangrene; J45.909 Unspecified asthma, uncomplicated; I48.91 Unspecified atrial fibrillation; G47.33 Obstructive sleep apnea (adult) (pediatric); I47.1 Supraventricular tachycardia; R55 Syncope and collapse; Z79.899 Other long term (current) drug therapy; Z88.7 Allergy status to serum and vaccine
CPT/HCPCS: 81025; 88305; 43239; J2001; J2704

== ENCOUNTER → 2018-07-30 | Outpatient (CLI) | payer BC ==
--- NOTE | 2018-07-31 12:03 | MM ---
Reason for exam: screening (asymptomatic). Last mammogram was performed 1 year and 2 months ago. History: Patient is nulliparous. Physical Findings: A clinical breast exam by your physician is recommended on an annual basis and results should be correlated with mammographic findings. MG 3D Screening Mammo W/Cad Bilateral CC and MLO view(s) were taken. Prior study comparison: May 30, 2017, bilateral MG 3d screening mammo w/cad. April 10, 2016, bilateral MG 3d screening mammo w/cad. The breast tissue is heterogeneously dense. This may lower the sensitivity of mammography. Finding: There are typically benign round, regional and diffuse calcifications in both breasts. There is no discrete abnormality. Focal asymmetry middle depth upper aspect left MLO 43/90. Questionable new group of left calcifications indistinct anterior middle depth upper outer quadrant. ASSESSMENT: Incomplete: need additional imaging evaluation, BI-RAD 0 RECOMMENDATION: Special view mammogram and ultrasound of the left breast. [facility] will attempt to contact patient to return for supplemental views and ultrasound.
== END | disposition home or self-care (01) ==
LOC: RADMAMWWP 07:17
PROVIDERS: ATTEND Family Medicine
DX: Z12.31 Encounter for screening mammogram for malignant neoplasm of breast (principal)
CPT/HCPCS: 77063; 77067

== ENCOUNTER → 2018-08-19 | Outpatient (CLI) | payer BC ==
--- NOTE | 2018-08-20 11:58 | MM ---
Reason for exam: additional evaluation requested from abnormal screening. Last mammogram was performed 1 month ago. History: Patient is nulliparous. Taking hormonal contraceptives beginning at age 19. Physical Findings: Nurse did not find any significant physical abnormalities on exam. MG 3D Work Up W/Cad LT CC with magnification, MLO with magnification, spot compression MLO, and LM view(s) were taken of the left breast. Prior study comparison: July 30, 2018, bilateral MG 3d screening mammo w/cad. May 30, 2017, bilateral MG 3d screening mammo w/cad. The breast tissue is heterogeneously dense. This may lower the sensitivity of mammography. Benign appearing calcifictions in the left breast. These results were verbally communicated with the patient and result sheet given to the patient on 08/19/18. ASSESSMENT: Probably benign, BI-RAD 3 RECOMMENDATION: Follow-up diagnostic mammogram of the left breast in 6 months.
--- NOTE | 2018-08-20 11:59 | USB ---
Reason for exam: additional evaluation requested from abnormal screening. History: Patient is nulliparous. Taking hormonal contraceptives beginning at age 19. US Breast Workup Limited LT Left limited breast ultrasound including focal area of concern, retroareolar and axilla demonstrates a 5 x 2 x 6mm cystic lesion at 12 o'clock and a 6 x 4 x 7mm mixed lesion at 12 o'clock. These results were verbally communicated with the patient and result sheet given to the patient on 08/19/18. ASSESSMENT: Suspicious, BI-RAD 4 RECOMMENDATION: Ultrasound core biopsy of the left breast. Called Dr. Carrasco with mammographic findings and has scheduled an appointment for the patient for 08/22/18 at 4:[address] Vega. PRELIMINARY REPORT CALLED AND FAXED TO DR. VEGA ON 08/20/18.
== END | disposition home or self-care (01) ==
LOC: RADMAMWWP 07:08
PROVIDERS: ATTEND Family Medicine
DX: R92.8 Other abnormal and inconclusive findings on diagnostic imaging of breast (principal)
CPT/HCPCS: 77061; 77065

== ENCOUNTER → 2018-08-28 | Outpatient (CLI) | payer BC | END | disposition home or self-care (01) | LOC: LABWHC1 11:54 | PROVIDERS: ATTEND Obstetrics & Gynecology | DX: N85.8 Other specified noninflammatory disorders of uterus (principal) | CPT/HCPCS: 36415 ==

== ENCOUNTER → 2018-09-09 | Day surgery (SDC) | payer BC ==
[2018-09-09 07:21] VITALS: RESP 16; BMI 34.4
[2018-09-09 09:14] VITALS: BP 112/74; PULSE 67; TEMP 98.3
--- NOTE | 2018-09-09 09:51 | USB ---
EXAMINATION TYPE: US biopsy breast VAD LT, MG diagnostic mammo LT wo CAD DATE OF EXAM: 09/09/2018 CLINICAL HISTORY: R92.8 Abnormal Mammogram. TECHNIQUE: Ultrasound guided core biopsy of left breast. COMPARISON: 08/19/2018 and 07/30/2018 FINDINGS: The procedure of ultrasound guided core biopsy was explained to the patient. Benefits, alternatives, and risks were discussed. An informed consent was then obtained. Preprocedural timeout was performed. Preprocedural imaging demonstrated an additional 0.5 x 0.3 cm mass adjacent to the mass that biopsy was recommended for at the 12:00 position, BC within the left breast. This was mixed with punctate internal calcifications and a solid 3 mm nodule. Biopsy was performed of this mass and the adjacent mass with the same biopsy given the 12- gauge vacuum-assisted needle. The patient was placed in supine positioning for imaging and for the procedure. The overlying skin was prepped and draped in usual sterile fashion. 10 cc of lidocaine with was as anesthetic into the skin and subcutaneous tissue up to areas of concern in the left breast. Under ultrasound guidance, a 12-gauge vacuum assisted biopsy gun device was used to obtain 6 core samples. Following this, a coil-shaped biopsy marker was left at the site of biopsy. The patient tolerated the procedure well without any immediate complication. The patient was kept in the radiology department for short stay after the procedure and then discharged home in stable condition. Postprocedure marker is appropriately placed near the postbiopsy air the 12:00 position. IMPRESSION: Successful, uncomplicated ultrasound guided core biopsy of two similar appearing masses directly adjacent to one another, full pathology results to follow. Pathology Results: Benign LEFT BREAST AT 12:00 POSITION, NEEDLE CORE BIOPSY: Fibrocystic spectrum lesions with inspissated intracystic contents. Recommendation Follow up mammogram of the left breast in 6 months. BEAN
== END | disposition home or self-care (01) ==
LOC: RADUSWWP 06:59
PROVIDERS: ATTEND Surgery
DX: N60.12 Diffuse cystic mastopathy of left breast (principal)
CPT/HCPCS: 88305; 77065; 19083; A4648; J2001

== ENCOUNTER → 2018-10-26 | Outpatient (CLI) | payer BC ==
[2018-10-26 11:06] LABS: Anisocytosis Slight; HCT 31.2 % (34.0-46.0); HGB 9.2 gm/dL (11.4-16.0); Hypochromasia Marked; MCH 22.9 pg (25.0-35.0); MCHC 29.6 g/dL (31.0-37.0); MCV 77.5 fL (80.0-100.0); Mean Platelet Volume 6.9; Microcytosis Slight; Platelet Count 393 k/uL (150-450); RBC 4.03 m/uL (3.80-5.40); RDW 16.4 % (11.5-15.5); WBC 10.6 k/uL (3.8-10.6)
== END | disposition home or self-care (01) ==
LOC: LABPAT 09:17
PROVIDERS: ATTEND Obstetrics & Gynecology
DX: Z01.812 Encounter for preprocedural laboratory examination (principal)
CPT/HCPCS: 36415; 85027; 86850; 86900; 86901

== ENCOUNTER 2018-11-05 06:00 | Day surgery (SDC) | payer BC ==
--- NOTE | 2018-11-04 15:54 | HP ---
HISTORY AND PHYSICAL DATE OF SURGERY: 11/05/2018 HISTORY OF PRESENT ILLNESS: The patient is a 43-year-old 0 para 0 who initially presented to the office with a known history of fibroids that were not significantly large and with a complaint of chronic pelvic pain and irregular bleeding. She had been tried on several different types of hormonal control, including control, which failed to relieve either the pain or the bleeding. She has had relatively constant daily bleeding on her control pill over the last several months and was recently found with a complex left adnexal mass measuring less than 5 cm. The workup for this included an OVA-1 test which was negative for any risk for malignancy. She is no longer interested in childbearing and is interested in definitive therapy. We discussed multiple different choices and she preferred to proceed with hysterectomy, for which she is only a candidate for open or da Wiley approach. PAST MEDICAL HISTORY: Past medical history is significant for a history of atrial fibrillation and rapid ventricular response in the past. She additionally had menorrhagia in the past as well as ongoing asthma and occasional anemia. SURGICAL HISTORY: She had an adenoidectomy as a child. She had a cardiac ablation in 2006 as well as a cholecystectomy at that time as well. She has also undergone D&C as well as right knee arthroscopy. There were no apparent anesthetic concerns. OBSTETRICAL HISTORY: 0 para 0, currently with control pills for contraception. GYNECOLOGIC HISTORY: Unremarkable except as noted in the history of present illness. There is no history of any infections to include STDs. FAMILY HISTORY: Noncontributory. 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 She is a nonsmoker. She denies alcohol or any other social concerns. CURRENT MEDICATIONS: Current medications include: 1. Flecainide acetate 100 mg q.12 hours as needed. 2. Flonase as needed. 3. Ibuprofen as needed. 4. Ventolin inhaler as needed. 5. Metoprolol 25 mg as needed. ALLERGIES: 1. SURGICAL TAPE. 2. STEROID PATCH. 3. BEE STINGS. REVIEW OF SYSTEMS: Confined to history of present illness. PHYSICAL EXAMINATION: Vital signs are stable. The patient is afebrile. In general, this is a well- developed, well-nourished, moderately obese white female in no acute distress. HEENT demonstrates PERRLA, EOMI. Her oropharynx is clear and her thyroid is normal to palpation. Her heart has a regular rhythm and rate without murmur. Her lungs are clear to auscultation bilaterally in all augustine. Her abdomen is nondistended, has normoactive bowel sounds, is soft, nontender, and without any palpable masses, hepatosplenomegaly or hernias. Her extremities without any cyanosis, clubbing or edema and are nontender to palpation bilaterally. Digital cervical examination demonstrates normal external genitalia and BUS with normal vaginal mucosa and cervix to palpation. There is no cervical motion tenderness. The uterus is approximately 5 weeks in size, anteverted, mobile, nontender, normal in shape. The adnexa are normal and nontender without any apparent masses bilaterally. ASSESSMENT AND PLAN: Chronic pelvic pain, fibroid uterus, menometrorrhagia and mass: We discussed alternatives for treatment, and the patient declined any conservative therapy in favor of definitive treatment with hysterectomy. She is only a candidate for the da Wiley approach, and we will plan da Wiley robotically assisted laparoscopic hysterectomy with bilateral salpingectomy and excision of the mass or indicated surgery at the time as well as diagnostic cystoscopy. The risks and complications of the procedures were discussed at length, to include bleeding, bleeding requiring transfusion, infection and injury to local structures to specifically include the bowel, bladder and ureters. We went on to discuss the injuries that are unique to da Wiley surgery to specifically include thermal injury and potential vaginal cuff dehiscence. She has understood all this and agreed to proceed. We then went further to discuss the typical hospital and postoperative courses. We are scheduled for the above procedure on the morning of November 05, 2018. MMODL / IJN: [id number] /
[~2018-11-05 06:00] MED LIST changes: +DEXAMETHASONE SOD PHOSPHATE 10 MG/ML 1 ML VIAL IV ONE; -GLYCOPYRROLATE 0.2 MG/ML 2 ML VIAL ONE; +HYDROmorphone 0.5 MG/0.5 ML SYRINGE IVP PRN; -LACTATED RINGERS 1,000 ML IV SCH; -LIDOCAINE 1% 20 ML VIAL (10MG/ML) FOR IV START INTRADERMA ONE; +LIDOCAINE 1% 20 ML VIAL (10MG/ML) FOR IV START INTRADERMA PRN; -LIDOCAINE 1% INJ 10MG/ML (20 ML MDV) ONE; +MIDAZOLAM 2 MG/2 ML VIAL IV PRN; +ONDANSETRON 4 MG/2 ML VIAL IVP ONE; -PROPOFOL 10 MG/ML 20 ML VIAL IV ONE; +SCOPOLAMINE 1.5MG/72HR PATCH TRANSDERM ONE
[2018-11-05] MEDS: LACTATED RINGERS 1,000 ML IV SCH ×3 (06:35→20:56)
[2018-11-05] MEDS ORDERED: MIDAZOLAM 2 MG/2 ML VIAL ONE (07:41)
[2018-11-05] MEDS ORDERED: NEOSTIGMINE 1 MG/ML 10 ML VIAL ONE (07:41)
[2018-11-05] MEDS ORDERED: HYDROmorphone (PF) 1 MG/ML ONE (07:41)
[2018-11-05] MEDS ORDERED: fentaNYL (PF) 50 MCG/ML 2 ML AMP ONE (07:41)
[2018-11-05] MEDS ORDERED: SUCCINYLCHOLINE CHLORIDE 100 MG/5 ML SYR IV ONE (07:41)
[2018-11-05] MEDS ORDERED: ROCURONIUM BROMIDE 10 MG/ML 10 ML VIAL IV ONE (07:41)
[2018-11-05] MEDS ORDERED: ePHEDrine SULFATE/0.9% NACL/PF 50 MG/5 ML SYRINGE IV ONE (07:41)
[2018-11-05] MEDS ORDERED: LIDOCAINE 1% INJ 10MG/ML (20 ML MDV) ONE (07:41)
[2018-11-05] MEDS ORDERED: GLYCOPYRROLATE 0.2 MG/ML 2 ML VIAL ONE (07:41)
[2018-11-05] MEDS ORDERED: PROPOFOL 10 MG/ML 20 ML VIAL IV ONE (07:41)
[2018-11-05] MEDS ORDERED: BUPIVACAINE (PF) 0.5% 30 ML VIAL SQ ONE ×2 (08:03→09:28)
[2018-11-05] MEDS ORDERED: METOCLOPRAMIDE 5 MG/ML 2 ML VIAL IVP PRN (09:23)
[2018-11-05] MEDS ORDERED: IBUPROFEN 600 MG TAB PO PRN (09:23)
[2018-11-05] MEDS ORDERED: diphenhydrAMINE 50 MG/ML 1 ML VIAL IVP PRN (09:23)
[2018-11-05] MEDS ORDERED: Acetaminophen-Codeine 300-30mg TAB PO PRN ×2 (09:23)
[2018-11-05] MEDS ORDERED: KETOROLAC 30 MG/ML 1 ML VIAL IVP PRN (09:23)
[2018-11-05] MEDS ORDERED: SIMETHICONE 80 MG CHEWABLE PO PRN (09:23)
[2018-11-05] MEDS ORDERED: ONDANSETRON 4 MG/2 ML VIAL IVP PRN (09:23)
--- NOTE | 2018-11-05 09:37 | P.OP ---
Date of Procedure: 11/05/18 Preoperative Diagnosis: #1. Dysfunctional uterine bleeding #2. Chronic pelvic pain #3. Fibroid uterus #4. Complex left adnexal mass Postoperative Diagnosis: Same plus #5. Abdominal wall adhesions Procedure(s) Performed: #1. Da Wiley robotically assisted laparoscopic hysterectomy with bilateral salpingectomy #2. Diagnostic cystoscopy #3. Adhesiolysis Implants: Same Anesthesia: PATRICIA Surgeon: Maximino Zaman Pot Firer #1: Areli Davidson Estimated Blood Loss (ml): 25 IV fluids (ml): 600 Urine output (ml): 400 Pathology: other (Uterus and bilateral fallopian tubes) Condition: stable Disposition: PACU Operative Findings: Intraoperatively, the uterus is noted to have multiple small subserosal fibroids. The left adnexa was found with filmy adhesions creating a pseudocys tic structure which included an inflamed left fallopian tube. The underlying ovary appeared normal and was left in place. The right tube and ovary were normal to inspection. Remainder the pelvis had no findings. Upon entering the abdomen, there was an omental adhesion to the umbilical area which was taken down sharply with a monopolar cautery scissors prior to docking the robot. Description of Procedure: The patient was prepped and draped in usual fashion after general endotracheal anesthesia was administered by the anesthesiologist. A weighted speculum was placed in the anterior lip of the cervix was grasped with single-tooth tenaculum. The cervix is dilated to admit a [facility] uterine manipulator with a small cervical cup. This was placed in standard fashion. The bladder was then catheterized with a Mahan catheter. Attention was turned to the abdomen where a site was selected approximately 2-3 cm above the umbilicus in the midline where a 1 cm incision was made in the transverse plane along insertion of a 10 mm optical trocar under direct visualization without difficulty. A pneumoperitoneum was established. It was apparent that there was an adhesion at the umbilicus through which the trocar was placed. Sites were selected in the left lower quadrant and right lower quadrant approximately 4 cm inferior to the optical port and 10-12 cm lateral where an 8 mm incision was made in the transverse plane allowing insertion of an 8 mm da Wiley trocar under direct visualization without difficulty. A site was then selected between the left lower quadrant trocar and the optical trocar which was divided equally and a half in approximately 4 synovators above the optical trocar were 10 mm incision was made in the transverse plane allowing insertion of a 10 mm speech language pathologist assistant port under direct visualization without difficulty. The scope was placed in the assistance port and a monopolar cautery scissors introduced through the left lateral port allowing the adhesions surrounding the optical port to be taken down sharply with both the scissors and cautery as necessary. There was no ongoing bleeding from the released omentum. The robot was then docked to the patient without difficulty and the left arm loaded with a [place] bipolar cautery forceps while the right arm was loaded with a monopolar cautery scissors. I then removed myself from the patient and went to the console. The findings in the pelvis were as noted above with filmy adhesions causing what appeared to be a pseudocystic structure in the left lower quadrant. This was lysed both sharply and bluntly allowing the left tube to ultimately be freed. It was then dissected along the underside of the tube while leaving the ovary in place. At the level of the utero-ovarian ligament and round ligament, bipolar cautery was utilized to make an avascular area which is in lysed sharply with the monopolar scissors. On the right side, there were no such adhesions but a similar operation was carried out without difficulty to the level of the broad ligament on each side. The uterine vasculature was then skeletonized bilaterally. The bladder peritoneum was elevated, incised, and reflected distally. A 4 x 4 was introduced into the abdomen and allowed further dissection of the bladder atony without difficulty. Uterine vasculature was then clearly isolated on each side and cauterized with [place] bipolar cautery. Was then divided sharply. The anterior vaginal cuff was then opened sharply with the monopolar scissors and the cervical cup followed around its margins u ntil the uterus was free. It was then removed from the abdomen and vagina occluded with a wet laparotomy sponge. The monopolar cautery scissors was replaced with a laparoscopic suturing device and a stitch of 0 Stratafix was brought into the abdomen. The initial stitch snapped upon placement of the first stitch at the right angle of the cuff and was replaced with a second stitch was was utilized to close the cuff in a running stitch from [id number] in standard fashion. There was no ongoing bleeding and ovaries appeared normal. Suction irrigation was carried out to confirm that there was no ongoing bleeding. Estimated blood loss for the entire case was approximately 25 mL. There are no complications. All sponge, instrument, and needle counts were correct. The patient tolerated the procedure well and proceeded to the recovery room in stable condition.
[2018-11-05] MEDS ORDERED: HYDROmorphone 1 MG/ML 1 ML SYRINGE IVP PRN (12:42)
[2018-11-06 00:16] VITALS: PULSE 88
[2018-11-06] MEDS: SENNOSIDES-DOCUSATE SODIUM 1 EACH TAB PO SCH ×2 (00:18→12:01)
[2018-11-06 06:49] LABS: Anisocytosis Slight; Basophils % (A) 0 %; Eosinophils % (A) 0 %; HCT 25.9 % (34.0-46.0); HGB 7.9 gm/dL (11.4-16.0); Hypochromasia Marked; Lymphocytes # (A) 1.6 k/uL (1.0-4.8); Lymphocytes % (A) 16 %; MCH 23.6 pg (25.0-35.0); MCHC 30.3 g/dL (31.0-37.0); MCV 77.8 fL (80.0-100.0); Mean Platelet Volume 6.5; Microcytosis Slight; Monocytes # (A) 0.7 k/uL (0-1.0); Monocytes % (A) 7 %; Neutrophils # (A) 7.7 k/uL (1.3-7.7); Neutrophils % (A) 76 %; Platelet Count 405 k/uL (150-450); RBC 3.33 m/uL (3.80-5.40); RDW 17.1 % (11.5-15.5); WBC 10.2 k/uL (3.8-10.6)
[2018-11-06] MEDS: LACTATED RINGERS 1,000 ML IV SCH (07:15)
--- NOTE | 2018-11-06 08:53 | P.DS ---
Providers Expected date of discharge: 11/06/18 Attending physician: Maximino Zaman Primary care physician: Roegr Carrasco - Discharge Diagnosis(es) (1) Chronic pelvic pain in female Current Visit: Yes Status: Acute (2) Dysfunctional uterine bleeding Current Visit: Yes Status: Acute (3) Fibroid uterus Current Visit: Yes Status: Acute Hospital Course: The patient is a 43-year-old 0 para 0 who presented the office with multiple complaints to include dysfunctional uterine bleeding which is been unable to be controlled with hormonal manipulation, specifically control pills. She also had chronic pelvic pain as well as a history of known fibroid uterus. She had requested definitive therapy and, givin her physical findings, was only a candidate for da Wiley approach. She was taken the operating room where she underwent da Wiley robotically assisted laparoscopic hysterectomy with bilateral salpingectomy. She also had been found with a complex left adnexal mass which was, intraoperatively, found to be pseudocystic in nature with the tube having been adhesed to and over the ovary creating some fluid collections. This was lysed intraoperatively and the ovary was left in place. Her postoperative course was unremarkable with vital signs remaining stable and her temperature was afebrile throughout. She was deemed stable for discharge on post operative day #1 and was discharged home to follow-up in the office in 2 weeks for a recheck and 8 weeks routinely. Discharge instructions included calling for any significantly increased bleeding, fever, abdominal pain, incisional complaints, GI concerns, or anything else that concerned her. She was additionally instructed to have nothing in the vagina for at least 8 weeks time to include intercourse. She understood her instructions and agrees follow up as noted above. Discharge medications included a prescription for Tylenol 3, 1-2 by mouth every 6 hours when necessary pain, #20 dispensed. She is additionally to take any other medications achieved previously been on as well as [id number] analgesic pain medications as needed. Discharge hemoglobin and hematocrit were 7.9 and 25.9 respectively. Preoperative hemoglobin and hematocrit were 9.2 and 31.2 respectively demonstrating a minimal change, particularly given the IV hydration of surgery and postoperative care. Procedures: #1. Da Wiley robotically assisted laparoscopic hysterectomy with bilateral salpingectomy #2. Diagnostic cystoscopy #3. Adhesiolysis Patient Condition at Discharge: Good Plan - Discharge Summary Discharge Rx Participant: Yes New Discharge Prescriptions: No Action Fluticasone/Vilanterol [Breo Ellipta 100-25 Mcg Inhaler] 1 puff INHALATION DAILY Budesonide [Rhinocort Allergy] 2 spr EA NOSTRIL DAILY PRN PRN Reason: Congestion Acetaminophen Tab [Tylenol Tab] 1,000 mg PO Q6HR PRN PRN Reason: Pain Omeprazole 20 mg PO DAILY Flecainide Acetate 100 mg PO DAILY PRN #15 tablet PRN Reason: PALPITIONS Metoprolol Tartrate [Lopressor] 25 mg PO DAILY PRN #15 tab PRN Reason: PALPITIONS Ibuprofen [Motrin] 800 mg PO TID PRN PRN Reason: Pain Discharge Medication List Acetaminophen Tab [Tylenol Tab] 1,000 mg PO Q6HR PRN 12/21/17 [History] Budesonide [Rhinocort Allergy] 2 spr EA NOSTRIL DAILY PRN 12/21/17 [History] Fluticasone/Vilanterol [Breo Ellipta 100-25 Mcg Inhaler] 1 puff INHALATION DAILY 12/21/17 [History] Omeprazole 20 mg PO DAILY 12/21/17 [History] Flecainide Acetate 100 mg PO DAILY PRN #15 tablet 12/24/17 [Rx] Metoprolol Tartrate [Lopressor] 25 mg PO DAILY PRN #15 tab 12/24/17 [Rx] Ibuprofen [Motrin] 800 mg PO TID PRN 10/25/18 [History] Follow up Appointment(s)/Referral(s): Maximino Zaman MD [STAFF PHYSICIAN] - 2 Weeks Discharge Disposition: HOME SELF-CARE
[2018-11-06 11:12] VITALS: BP 129/67; RESP 18; TEMP 98.5
== END 2018-11-06 13:30 | disposition home or self-care (01) ==
LOC: OR 06:00 → 4FBP 09:58 → OR 11-06 13:30
PROVIDERS: ATTEND Obstetrics & Gynecology
DX: N80.0 Endometriosis of uterus (principal); D25.9 Leiomyoma of uterus, unspecified; K66.0 Peritoneal adhesions (postprocedural) (postinfection); N93.8 Other specified abnormal uterine and vaginal bleeding; G89.29 Other chronic pain; I48.91 Unspecified atrial fibrillation; I47.1 Supraventricular tachycardia; G47.33 Obstructive sleep apnea (adult) (pediatric); J45.909 Unspecified asthma, uncomplicated; Z90.49 Acquired absence of other specified parts of digestive tract; Z88.7 Allergy status to serum and vaccine; Z91.030 Bee allergy status; Z88.8 Allergy status to other drugs, medicaments and biological substances; Z91.09 Other allergy status, other than to drugs and biological substances; Z79.51 Long term (current) use of inhaled steroids; Z79.899 Other long term (current) drug therapy; Z79.3 Long term (current) use of hormonal contraceptives
CPT/HCPCS: 58552; S2900; 81025; 85025; 86850; 86900; 86901; 88307

== ENCOUNTER 2018-11-18 11:22 | Inpatient (IN) | payer BC ==
[2018-11-18] MEDS ORDERED: METOCLOPRAMIDE 5 MG/ML 2 ML VIAL IVP STA (12:38)
[2018-11-18] MEDS ORDERED: MORPHINE SULFATE 4 MG/ML SYRINGE IV STA (12:38)
[2018-11-18 13:07] LABS: Anisocytosis Slight; Basophils % (A) 0 %; Eosinophils # (A) 0.1 k/uL (0-0.7); Eosinophils % (A) 1 %; HCT 29.9 % (34.0-46.0); HGB 9.2 gm/dL (11.4-16.0); Hypochromasia Marked; Lymphocytes # (A) 1.5 k/uL (1.0-4.8); Lymphocytes % (A) 12 %; MCH 23.2 pg (25.0-35.0); MCHC 30.8 g/dL (31.0-37.0); MCV 75.2 fL (80.0-100.0); Mean Platelet Volume 6.5; Microcytosis Slight; Monocytes # (A) 0.6 k/uL (0-1.0); Monocytes % (A) 5 %; Neutrophils # (A) 10.1 k/uL (1.3-7.7); Neutrophils % (A) 81 %; Platelet Count 532 k/uL (150-450); RBC 3.98 m/uL (3.80-5.40); RDW 16.4 % (11.5-15.5); WBC 12.5 k/uL (3.8-10.6)
[2018-11-18 13:13] LABS: Appearance,Urine Cloudy (Clear); Bacteria,Urine Occasional /hpf; Bilirubin,Urine Negative (Negative); Blood,Urine Moderate (Negative); Color,Urine Yellow; Glucose,Urine (UA) Negative (Negative); Hyaline Casts,Urine 130 /lpf (0-2); Ketones,Urine Negative (Negative); Leukocyte Esterase,Urine Trace (Negative); Mucus,Urine Many /hpf; Nitrite,Urine Negative (Negative); Protein,Urine 3+ (Negative); RBC,Urine 44 /hpf (0-5); Specific Gravity,Urine 1.035 (1.001-1.035); Squamous Epithelial Cell,Urine 12 /hpf (0-4); WBC,Urine 18 /hpf (0-5)
[2018-11-18 13:18] LABS: ALT 14 U/L (9-52); AST 15 U/L (14-36); African American GFR (CKD) >90 (>60 ml/min/1.73 sqM); Alkaline Phosphatase 90 U/L (38-126); Amylase 42 U/L (30-110); Anion Gap 13 mmol/L; Blood Urea Nitrogen 15 mg/dL (7-17); Calcium 9.5 mg/dL (8.4-10.2); Carbon Dioxide 21 mmol/L (22-30); Chloride 106 mmol/L (98-107); Glucose 103 mg/dL (74-99); Non-African American GFR(CKD) 79 (>60 ml/min/1.73 sqM); Potassium 4.4 mmol/L (3.5-5.1); Sodium 140 mmol/L (137-145); Total Bilirubin 0.4 mg/dL (0.2-1.3); Total Protein 7.4 g/dL (6.3-8.2)
--- NOTE | 2018-11-18 13:26 | ED ---
Abdominal Pain HPI - General Chief Complaint: Abdominal Pain Stated Complaint: abdominal pain Time Seen by Provider: 11/18/18 12:06 Source: patient Mode of arrival: ambulatory Limitations: no limitations - History of Present Illness Initial Comments: Patient is a 43-year-old female presents emergency Department with chief complaint of abdominal pain. Patient reports she had a hysterectomy on November 05 and has since developed generalized suprapubic tenderness that has increased in severity. Patient reports a few days ago she went to her primary care after she developed a fever along with a suprapubic pain. There she was diagnosed with a UTI and prescribed Keflex. Patient reports no improvement after taking the medication. Patient reports the endoscopic incision sites are healing well. Patient denies nausea, vomiting or diarrhea. Patient reports increased urgency, frequency but no dysuria. Patient reports intermittent spotting but the g ynecologist informed her that could continue happening at up to 6 months after procedure. Patient denies chest pain, chest tightness shortness of breath. Patient states the pain is not related to by mouth food intake. Patient denies any hematochezia or melena. Patient had cholecystectomy 5 years ago. - Related Data Home Medications Medication Instructions Recorded Confirmed Acetaminophen Tab [Tylenol Tab] 1,000 mg PO Q6HR PRN 12/21/17 11/18/18 Budesonide [Rhinocort Allergy] 2 spr EA NOSTRIL DAILY PRN 12/21/17 11/18/18 Fluticasone/Vilanterol [Breo 1 puff INHALATION RT-DAILY 12/21/17 11/18/18 Ellipta 100-25 Mcg Inhaler] Omeprazole 20 mg PO DAILY 12/21/17 11/18/18 Cephalexin [Keflex] 500 mg PO Q12HR 11/18/18 11/18/18 Ibuprofen [Motrin] 600 mg PO TID PRN 11/18/18 11/18/18 Previous Rx's Medication Instructions Recorded Flecainide Acetate 100 mg PO DAILY PRN #15 tablet 12/24/17 Metoprolol Tartrate [Lopressor] 25 mg PO DAILY PRN #15 tab 12/24/17 Allergies Allergy/AdvReac Type Severity Reaction Status Date / Time Tetanus Vaccines and Toxoid Allergy severe Verified 11/18/18 12:13 [Tetanus Vaccines & Toxoid] swelling and redness venom-honey bee Allergy Anaphylaxis Verified 11/18/18 12:13 [bee venom (honey bee)] Androgenic Anabolic Steroid AdvReac Mild Itching Verified 11/18/18 12:13 adhesive AdvReac Itching,gwen Verified 11/18/18 12:13 h Review of Systems ROS Statement: Those systems with pertinent positive or pertinent negative responses have been documented in the HPI. ROS Other: All systems not noted in ROS Statement are negative. Past Medical History Past Medical History: Atrial Fibrillation, Asthma, Chest Pain / Angina, Sleep Apnea/CPAP/BIPAP, Supraventricular Tachycardia (SVT), Syncope Additional Past Medical History / Comment(s): 2004 pt changed light bulb at work and was eletricuted-pt states caused problems with afib/svt/palpitations/depression and dry eyes. migraines, sinus problems, pre- ulcers as a child. recent episode of severe chest pain-tests were neg for cardiac per pt, mild anemia History of Any Multi-Drug Resistant Organisms: None Reported Past Surgical History: Hysterectomy Additional Past Surgical History / Comment(s): right knee arthroscopy, D&C with hysteroscopy, wisdom teeth heart ablation Past Anesthesia/Blood Transfusion Reactions: Motion Sickness, Postoperative Nausea & Vomiting (PONV) Additional Past Anesthesia/Blood Transfusion Reaction / Comment(s): Pt states she woke during cardiac ablation. Past Psychological History: No Psychological Hx Reported Smoking Status: Current every day smoker Past Alcohol Use History: None Reported Past Drug Use History: None Reported - Past Family History Father Family Medical History: Hypertension Additional Family Medical History / Comment(s): Paternal grandfathe had lung cancer. Mother Family Medical History: No Reported History Additional Family Medical History / Comment(s): Maternal grandmother had heart problems and a pacer. General Exam Limitations: no limitations General appearance: alert, in no apparent distress Head exam: Present: atraumatic, normocephalic, normal inspection Eye exam: Present: normal appearance, PERRL, EOMI Pupils: Present: normal accommodation ENT exam: Present: normal exam, mucous membranes moist, normal external ear exam Neck exam: Present: normal inspection, full ROM Respiratory exam: Present: normal lung sounds bilaterally Cardiovascular Exam: Present: normal rhythm, tachycardia, normal heart sounds GI/Abdominal exam: Present: soft, tenderness (Generalized suprapubic tenderness.), normal bowel sounds, other (Laparoscopic incision sites do not appear infected.). Absent: guarding, rebound, rigid, pulsatile mass Extremities exam: Present: normal inspection, full ROM Back exam: Present: normal inspection, full ROM, CVA tenderness (L) (Mild) Neurological exam: Present: alert, oriented X3 Psychiatric exam: Present: normal affect, normal mood Skin exam: Present: warm, intact, normal color Course Vital Signs 11/18/18 11/18/18 11:25 14:00 Temperature 98.4 F 97.5 F L Pulse Rate 120 H 80 Respiratory 18 14 Rate Blood Pressure 113/69 109/68 O2 Sat by Pulse 99 100 Oximetry Medical Decision Making - Medical Decision Making Patient is a 43-year-old female presenting to emergency Department with a chief complaint of abdominal pain. CT of abdomen and pelvis with contrast is indicative of an irregular 4 x 3 x 3 cm hypodense collection at the vaginal cuff region suspicious for early abscess formation. Postsurgical changes are within this region. Patient does have mild leukocytosis. Patient will be started on Zosyn and admitted for further management. Patient given morphine for pain. Dr. Rico spoke with Dr. Davidson who advised the patient admitted. Admitting physician is Dr. Davidson - Lab Data Result diagrams: 11/18/18 11:50 11/18/18 11:50 Lab Results 11/18/18 11/18/18 11/18/18 Range/Units 11:50 11:50 11:50 WBC 12.5 H (3.8-10.6) k/uL RBC 3.98 (3.80-5.40) m/uL Hgb 9.2 L (11.4-16.0) gm/dL Hct 29.9 L (34.0-46.0) % MCV 75.2 L (80.0-100.0) fL MCH 23.2 L (25.0-35.0) pg MCHC 30.8 L (31.0-37.0) g/dL RDW 16.4 H (11.5-15.5) % Plt Count 532 H (150-450) k/uL Neutrophils % 81 % Lymphocytes % 12 % Monocytes % 5 % Eosinophils % 1 % Basophils % 0 % Neutrophils # 10.1 H (1.3-7.7) k/uL Lymphocytes # 1.5 (1.0-4.8) k/uL Monocytes # 0.6 (0-1.0) k/uL Eosinophils # 0.1 (0-0.7) k/uL Basophils # 0.0 (0-0.2) k/uL Hypochromasia Marked Anisocytosis Slight Microcytosis Slight Sodium 140 (137-145) mmol/L Potassium 4.4 (3.5-5.1) mmol/L Chloride 106 (98-107) mmol/L Carbon Dioxide 21 L (22-30) mmol/L Anion Gap 13 mmol/L BUN 15 (7-17) mg/dL Creatinine 0.91 (0.52-1.04) mg/dL Est GFR (CKD-EPI)AfAm >90 (>60 ml/min/1.73 sqM) Est GFR (CKD-EPI)NonAf 79 (>60 ml/min/1.73 sqM) Glucose 103 H (74-99) mg/dL Calcium 9.5 (8.4-10.2) mg/dL Total Bilirubin 0.4 (0.2-1.3) mg/dL AST 15 (14-36) U/L ALT 14 (9-52) U/L Alkaline Phosphatase 90 (38-126) U/L Total Protein 7.4 (6.3-8.2) g/dL Albumin 4.0 (3.5-5.0) g/dL Amylase 42 (30-110) U/L Lipase 114 (23-300) U/L Urine Color Yellow Urine Appearance Cloudy H (Clear) Urine pH 6.0 (5.0-8.0) Ur Specific [place] 1.035 (1.001-1.035) Urine Protein 3+ H (Negative) Urine Glucose (UA) Negative (Negative) Urine Ketones Negative (Negative) Urine Blood Moderate H (Negative) Urine Nitrite Negative (Negative) Urine Bilirubin Negative (Negative) Urine Urobilinogen 2.0 (<2.0) mg/dL Ur Leukocyte Esterase Trace H (Negative) Urine RBC 44 H (0-5) /hpf Urine WBC 18 H (0-5) /hpf Ur Squamous Epith Cells 12 H (0-4) /hpf Urine Bacteria Occasional H (None) /hpf Hyaline Casts 130 H (0-2) /lpf Urine Mucus Many H (None) /hpf Disposition Clinical Impression: Abdominal pain Disposition: HOME SELF-CARE Condition: Stable Instructions (If sedation given, give patient instructions): Abdominal Pain (ED) Additional Instructions: Patient will be admitted Is patient prescribed a controlled substance at d/c from ED?: No Referrals: Roger Carrasco MD [Primary Care Provider] - 1-2 days Time of Disposition: 15:53
--- NOTE | 2018-11-18 14:58 | CT ---
EXAMINATION TYPE: CT abdomen pelvis w con DATE OF EXAM: 11/18/2018 COMPARISON: 08/01/2013 INDICATION: Abdominal pain DLP: 1842.6 mGycm, Automated exposure control for dose reduction was used. CONTRAST: 100 mL of Isovue 300. Study performed without Oral Contrast TECHNIQUE: Axial images were obtained from above the diaphragm to the pubic rami in the axial plane a t 5 mm thick sections. Reconstructed images are reviewed on the computer in the coronal plane. FINDINGS: Limited CT sections are obtained the lung bases. The lung bases are clear. CT ABDOMEN: Liver: Normal Spleen: Normal Pancreas: Normal Adrenal glands: The adrenal glands are normal. Gallbladder: Surgically absent Kidneys: No masses are evident. No hydronephrosis is present. No cysts are present. Delayed images were obtained through the kidneys, which remain unremarkable. Aorta: Vascular calcification is within the aorta. Inferior vena cava: Normal. CT PELVIS: Loops of bowel within the abdomen and pelvis are normal. There are loops of bowel which are incom pletely distended or lack oral contrast limiting their evaluation. Appendix: Normal as visualized. Urinary bladder: Decompressed and cannot be evaluated. Genitourinary structures: Patient is status post hysterectomy. There is some mild fullness in the chandler ateral adnexa. Small amount of free fluid may be within the right adnexa. Inflammatory changes are ad jacent to the adnexal regions which can be related to the surgery. At the vaginal cuff there is some irregular slightly hypodense area appears to measure 4.5 x 2.5 x 2. 8 cm. Early abscess formation should be considered. Osseous structures: No suspicious lytic or sclerotic lesions. IMPRESSIONS: 1. Irregular 4 x 3 x 3 cm hypodense collection at the vaginal cuff region suspicious for early absce ss formation. Postsurgical changes are within this region.
[2018-11-18] MEDS ORDERED: PIPERACILLIN-TAZOBACTAM 3.375 GM in SODIUM CHLORIDE 0.9% 100 ML IVPB STA (15:53)
[2018-11-18] MEDS ORDERED: NALOXONE 0.4 MG/ML 1 ML VIAL IV PRN (15:53)
[2018-11-18] MEDS ORDERED: MORPHINE SULFATE 4 MG/ML SYRINGE IVP PRN (15:55)
[2018-11-18] MEDS ORDERED: METOPROLOL TARTRATE 25 MG TAB PO PRN (16:20)
[2018-11-18] MEDS ORDERED: FLUTICASONE 50MCG/SPRAY NASAL 16GM EA NOSTRIL PRN (16:20)
[2018-11-18] MEDS ORDERED: IBUPROFEN IV 800 MG in SODIUM CHLORIDE 0.9% 250 ML IV ONE (16:27)
[2018-11-18] MEDS ORDERED: SENNOSIDES-DOCUSATE SODIUM 1 EACH TAB PO STA ×2 (16:42→17:15)
[2018-11-18] MEDS ORDERED: HYDROcodone/APAP 5-325MG 1 EACH TAB PO PRN ×2 (16:43)
--- NOTE | 2018-11-18 16:46 | P.HPOB ---
History of Present Illness H&P Date: 11/18/18 Chief Complaint: abdominal abscess, POD 12 RAVH this is a pleasant 43 yo female that presented to the ED, with c/o worsening suprapubic pain. she was seen last week in the office and was being treated for presumed UTI, with keflex. she had a slught leukocytosis on labs today and CT scan revealing a [id number] pelvic abscess. she states she is running a "low grade temp"at home. she states she has increasing pressure when she urinates, denies dysuria but notes only minimal urination at that time. She states she has not had a bowel movement since last Sunday. She did try prune juice on Sunday which seemed to help her have a small bowel movement and nothing since then. She denies nausea/vomiting Review of Systems Constitutional: Reports fatigue, Reports fever, Denies chills Ears, nose, mouth and throat: Denies headache Cardiovascular: Denies chest pain, Denies edema Respiratory: Denies cough, Denies dyspnea Gastrointestinal: Reports constipation, Denies diarrhea, Denies nausea, Denies vomiting Genitourinary: Reports difficulty voiding, Denies dysuria, Denies hematuria, Denies urgency Past Medical History Past Medical History: Atrial Fibrillation, Asthma, Chest Pain / Angina, Sleep Apnea/CPAP/BIPAP, Supraventricular Tachycardia (SVT), Syncope Additional Past Medical History / Comment(s): 2004 pt changed light bulb at work and was eletricuted-pt states caused problems with afib/svt/palpitations/depression and dry eyes. migraines, sinus problems, pre- ulcers as a child. recent episode of severe chest pain-tests were neg for cardiac per pt, mild anemia History of Any Multi-Drug Resistant Organisms: None Reported Past Surgical History: Hysterectomy Additional Past Surgical History / Comment(s): right knee arthroscopy, D&C with hysteroscopy, wisdom teeth heart ablation Past Anesthesia/Blood Transfusion Reactions: Motion Sickness, Postoperative Nausea & Vomiting (PONV) Additional Past Anesthesia/Blood Transfusion Reaction / Comment(s): Pt states she woke during cardiac ablation. Past Psychological History: No Psychological Hx Reported Smoking Status: Current every day smoker Past Alcohol Use History: None Reported Past Drug Use History: None Reported - Past Family History Father Family Medical History: Hypertension Additional Family Medical History / Comment(s): Paternal grandfathe had lung cancer. Mother Family Medical History: No Reported History Additional Family Medical History / Comment(s): Maternal grandmother had heart problems and a pacer. Medications and Allergies Home Medications Medication Instructions Recorded Confirmed Type Acetaminophen Tab [Tylenol Tab] 1,000 mg PO Q6HR PRN 12/21/17 11/18/18 History Budesonide [Rhinocort Allergy] 2 spr EA NOSTRIL DAILY PRN 12/21/17 11/18/18 History Fluticasone/Vilanterol [Breo 1 puff INHALATION RT-DAILY 12/21/17 11/18/18 History Ellipta 100-25 Mcg Inhaler] Omeprazole 20 mg PO DAILY 12/21/17 11/18/18 History Flecainide Acetate 100 mg PO DAILY PRN #15 tablet 12/24/17 11/18/18 Rx Metoprolol Tartrate [Lopressor] 25 mg PO DAILY PRN #15 tab 12/24/17 11/18/18 Rx Cephalexin [Keflex] 500 mg PO Q12HR 11/18/18 11/18/18 History Ibuprofen [Motrin] 600 mg PO TID PRN 11/18/18 11/18/18 History Allergies Allergy/AdvReac Type Severity Reaction Status Date / Time Tetanus Vaccines and Toxoid Allergy severe Verified 11/18/18 12:13 [Tetanus Vaccines & Toxoid] swelling and redness venom-honey bee Allergy Anaphylaxis Verified 11/18/18 12:13 [bee venom (honey bee)] Androgenic Anabolic Steroid AdvReac Mild Itching Verified 11/18/18 12:13 adhesive AdvReac Itching,gwen Verified 11/18/18 12:13 h Exam Osteopathic Statement: *. No significant issues noted on an osteopathic structural exam other than those noted in the History and Physical/Consult. Vital Signs Temp Pulse Resp BP Pulse Ox 11/18/18 14:00 97.5 F L 80 14 109/68 100 11/18/18 11:25 98.4 F 120 H 18 113/69 99 Intake and Output 11/18/18 11/18/18 11/18/18 06:59 14:59 22:59 Other: Weight 109.316 kg targeted physical exam is performed in standard ounces well-nourished well- developed female in no obvious distress, her abdomen is soft she does note some tenderness over the suprapubic region. Her breathing is noted to be nonlabored her heart has a regular rate and rhythm Results Result Diagrams: 11/18/18 11:50 11/18/18 11:50 Abnormal Lab Results - Last 24 Hours (Table) 11/18/18 11/18/18 11/18/18 Range/Units 11:50 11:50 11:50 WBC 12.5 H (3.8-10.6) k/uL Hgb 9.2 L (11.4-16.0) gm/dL Hct 29.9 L (34.0-46.0) % MCV 75.2 L (80.0-100.0) fL MCH 23.2 L (25.0-35.0) pg MCHC 30.8 L (31.0-37.0) g/dL RDW 16.4 H (11.5-15.5) % Plt Count 532 H (150-450) k/uL Neutrophils # 10.1 H (1.3-7.7) k/uL Carbon Dioxide 21 L (22-30) mmol/L Glucose 103 H (74-99) mg/dL Urine Appearance Cloudy H (Clear) Urine Protein 3+ H (Negative) Urine Blood Moderate H (Negative) Ur Leukocyte Esterase Trace H (Negative) Urine RBC 44 H (0-5) /hpf Urine WBC 18 H (0-5) /hpf Ur Squamous Epith Cells 12 H (0-4) /hpf Urine Bacteria Occasional H (None) /hpf Hyaline Casts 130 H (0-2) /lpf Urine Mucus Many H (None) /hpf Assessment and Plan (1) Abscess Current Visit: Yes Status: Acute Code(s): L02.91 - CUTANEOUS ABSCESS, UNSPECIFIED SNOMED Code(s): 202953806 (2) History of robot-assisted laparoscopic hysterectomy Current Visit: Yes Status: Acute Code(s): Z90.710 - ACQUIRED ABSENCE OF BOTH CERVIX AND UTERUS SNOMED Code(s): 587512514 Plan: plan to admit this pleasant 43yo female who is 12 days s/p RAVH/DC/JESSICA. she has pelvic abscess 4x3x3, will plan treatment IV zosyn, and pain management. will plan to recheck cbc in the am in addition.
[2018-11-18] MEDS: SODIUM CHLORIDE 0.9% 1,000 ML IV SCH (16:56)
[2018-11-18 17:52] VITALS: BMI 34.5
[2018-11-19] MEDS: PIPERACILLIN-TAZOBACTAM 3.375 GM in SODIUM CHLORIDE 0.9% 100 ML IVPB SCH ×3 (00:14→16:20)
[2018-11-19] MEDS: ACETAMINOPHEN TAB 325 MG TAB PO PRN (00:24)
[2018-11-19] MEDS: IBUPROFEN 600 MG TAB PO PRN ×3 (01:38→20:06)
[2018-11-19] MEDS: SODIUM CHLORIDE 0.9% 1,000 ML IV SCH ×2 (06:57→20:06)
[2018-11-19] MEDS: PANTOPRAZOLE 40 MG TABLET PO SCH (06:58)
[2018-11-19] MEDS: SYMBICORT 80-4.5 MCG INHALER INHALATION SCH ×2 (08:38→19:58)
--- NOTE | 2018-11-19 12:06 | P.PN ---
Subjective Progress Note Date: 11/19/18 The patient's primary complaint today continues to be of pain, primarily with urination, and dysuria. The pain is primarily located from the pubic symphysis to 4 cm below the umbilicus. She is otherwise tolerating regular diet and admits to flatus. She does not feel particularly hungry. She is up and ambulating routinely. Objective - Vital Signs Vital signs: Vital Signs Temp 98.3 F 11/19/18 08:11 Pulse 78 11/19/18 08:11 Resp 18 11/19/18 08:11 BP 109/71 11/19/18 08:11 Pulse Ox 95 11/19/18 08:11 Intake & Output 11/18/18 11/19/18 11/19/18 18:59 06:59 18:59 Output Total 100 300 525 Balance -100 -300 -525 Weight 109.316 kg Output: Urine 100 300 525 Other: Voiding Method Toilet Toilet - Exam In general, this is a well-developed, well-nourished white female in no acute distress. Her heart has a regular rhythm and rate without murmur. Her lungs are clear to auscultation bilaterally in all augustine. Her abdomen is nondistended, is soft, with minimal suprapubic tenderness and no evidence of guarding or rebound. Her incisions are well-healed. There is no apparent bruising or discoloration from the surgery. Her extremities are without any cyanosis, clubbing, or edema and are nontender to palpation bilaterally. - Labs CBC & Chem 7: 11/18/18 11:50 11/18/18 11:50 Labs: Abnormal Lab Results - Last 24 Hours (Table) 11/18/18 11/18/18 11/18/18 Range/Units 11:50 11:50 11:50 WBC 12.5 H (3.8-10.6) k/uL Hgb 9.2 L (11.4-16.0) gm/dL Hct 29.9 L (34.0-46.0) % MCV 75.2 L (80.0-100.0) fL MCH 23.2 L (25.0-35.0) pg MCHC 30.8 L (31.0-37.0) g/dL RDW 16.4 H (11.5-15.5) % Plt Count 532 H (150-450) k/uL Neutrophils # 10.1 H (1.3-7.7) k/uL Carbon Dioxide 21 L (22-30) mmol/L Glucose 103 H (74-99) mg/dL Urine Appearance Cloudy H (Clear) Urine Protein 3+ H (Negative) Urine Blood Moderate H (Negative) Ur Leukocyte Esterase Trace H (Negative) Urine RBC 44 H (0-5) /hpf Urine WBC 18 H (0-5) /hpf Ur Squamous Epith Cells 12 H (0-4) /hpf Urine Bacteria Occasional H (None) /hpf Hyaline Casts 130 H (0-2) /lpf Urine Mucus Many H (None) /hpf Microbiology - Last 24 Hours (Table) 11/18/18 11:50 Urine Culture - Preliminary Urine,Clean Catch Assessment and Plan (1) Abdominal pain Current Visit: Yes Status: Acute Code(s): R10.9 - UNSPECIFIED ABDOMINAL PAIN SNOMED Code(s): 42911439 (2) Abscess Current Visit: Yes Status: Acute Code(s): L02.91 - CUTANEOUS ABSCESS, UNSPECIFIED SNOMED Code(s): 226794754 Plan: Despite the fact that an abscess is the working diagnosis, I fully believe that this is likely nothing more than a fluid collection status post hysterectomy as would be seen under every other postsurgical situation. Nonetheless, given the patient's history of fever outside of the hospital with the findings and complaints as noted above, we will continue to treat this as if it might be an abscess. As such, we will continue IV antibiotics until afebrile for at least 24-48 hours and then I would anticipate discharging home to continue oral antibiotics in the outpatient setting for another 7-10 days, likely using Augmentin. I have discussed with the patient that the significant and dysuria is likely secondary to inflammation the pelvis. She is at this time refusing narcotic pain medications and managing with nonsteroidal anti-inflammatories at this time. We will continue observation for another 24 hours but I do anticipate discharge home likely tomorrow.
[2018-11-19] MEDS: SENNOSIDES-DOCUSATE SODIUM 1 EACH TAB PO SCH ×2 (12:25→20:06)
[2018-11-19 12:32] LABS: Anisocytosis Slight; HCT 27.6 % (34.0-46.0); HGB 8.3 gm/dL (11.4-16.0); Hypochromasia Marked; MCH 23.6 pg (25.0-35.0); MCV 78.7 fL (80.0-100.0); Mean Platelet Volume 6.9; Platelet Count 455 k/uL (150-450); RBC 3.51 m/uL (3.80-5.40); RDW 16.2 % (11.5-15.5); WBC 9.3 k/uL (3.8-10.6)
[2018-11-19] MEDS ORDERED: CALCIUM CARBONATE 500 MG CHEWABLE PO PRN (16:07)
[2018-11-20] MEDS: PIPERACILLIN-TAZOBACTAM 3.375 GM in SODIUM CHLORIDE 0.9% 100 ML IVPB SCH ×3 (00:31→16:19)
[2018-11-20] MEDS: ACETAMINOPHEN TAB 325 MG TAB PO PRN (00:31)
[2018-11-20 07:28] LABS: Anisocytosis Slight; Basophils % (A) 1 %; Eosinophils # (A) 0.2 k/uL (0-0.7); Eosinophils % (A) 3 %; HCT 26.4 % (34.0-46.0); HGB 7.9 gm/dL (11.4-16.0); Hypochromasia Marked; Lymphocytes # (A) 1.3 k/uL (1.0-4.8); Lymphocytes % (A) 18 %; MCH 23.4 pg (25.0-35.0); MCHC 29.8 g/dL (31.0-37.0); MCV 78.4 fL (80.0-100.0); Mean Platelet Volume 6.6; Microcytosis Slight; Monocytes # (A) 0.3 k/uL (0-1.0); Monocytes % (A) 5 %; Neutrophils # (A) 5.3 k/uL (1.3-7.7); Neutrophils % (A) 72 %; Platelet Count 427 k/uL (150-450); RBC 3.37 m/uL (3.80-5.40); RDW 16.3 % (11.5-15.5); WBC 7.3 k/uL (3.8-10.6)
[2018-11-20] MEDS: IBUPROFEN 600 MG TAB PO PRN (08:48)
[2018-11-20] MEDS: PANTOPRAZOLE 40 MG TABLET PO SCH (08:48)
[2018-11-20] MEDS: SODIUM CHLORIDE 0.9% 1,000 ML IV SCH (08:49)
[2018-11-20] MEDS: SENNOSIDES-DOCUSATE SODIUM 1 EACH TAB PO SCH (08:51)
[2018-11-20] MEDS: SYMBICORT 80-4.5 MCG INHALER INHALATION SCH ×2 (09:02→20:47)
--- NOTE | 2018-11-20 17:36 | P.DS ---
Providers Date of admission: 11/18/18 15:53 Expected date of discharge: 11/20/18 Attending physician: Areli Davidson Primary care physician: Roger Carrasco - Discharge Diagnosis(es) (1) Abdominal pain Current Visit: Yes Status: Acute (2) Abscess Current Visit: Yes Status: Acute (3) Urinary tract infection Current Visit: Yes Status: Acute Hospital Course: The patient is a 43-year-old woman who underwent da Wiley robotically assisted laparoscopic hysterectomy with bilateral salpingectomy and diagnostic cystoscopy approximately 2 weeks ago. The surgery itself was entirely uncomplicated. She began to experience significant suprapubic pain and was seen in the office last week at which time she was thought to have urinary tract infection and started on Keflex. Urine culture showed no significant findings shortly thereafter but the pain continued to persist and she continued to have significant and dysuria as well as having some fevers as high as 102F. As result, she presented to the emergency room where she was seen with mild leukocytosis. CAT scan of the abdomen and pelvis demonstrated a fluid collection in the pelvis and the presumptive diagnosis of pelvic abscess status post surgery was made and the p atient admitted for IV antibiotics. She additionally at that time had a urine culture done. During her hospital stay, urine culture was found to be growing gram-negative bacilli. She remained afebrile for her entire stay on IV Zosyn and her pain significantly improved. She does still complain of some suprapubic pain which is significantly improved from presentation. She is otherwise tolerating regular diet, ambulatory, and having normal bowel function. As a result of the above, she was deemed stable for discharge on hospital day #3 and was discharged home to follow-up in the office in 5 days on November 25, at 2:15 PM. She was instructed to call for any significantly increased fever or pain, vaginal concerns, or anything else that concerned her. White count remained normal for the remainder of her hospital stay. She does continue to be fairly significantly anemic which is not significantly changed, slightly improved, from her postoperative hemoglobin 2 weeks ago. Procedures: #1. CT of the abdomen and pelvis #2. IV antibiotics Patient Condition at Discharge: Stable Plan - Discharge Summary New Discharge Prescriptions: No Action Fluticasone/Vilanterol [Breo Ellipta 100-25 Mcg Inhaler] 1 puff INHALATION RT-DAILY Budesonide [Rhinocort Allergy] 2 spr EA NOSTRIL DAILY PRN PRN Reason: Congestion Acetaminophen Tab [Tylenol Tab] 1,000 mg PO Q6HR PRN PRN Reason: Pain Omeprazole 20 mg PO DAILY Flecainide Acetate 100 mg PO DAILY PRN #15 tablet PRN Reason: PALPITIONS Metoprolol Tartrate [Lopressor] 25 mg PO DAILY PRN #15 tab PRN Reason: PALPITIONS Ibuprofen [Motrin] 600 mg PO TID PRN PRN Reason: Pain Cephalexin [Keflex] 500 mg PO Q12HR Discharge Medication List Acetaminophen Tab [Tylenol Tab] 1,000 mg PO Q6HR PRN 12/21/17 [History] Budesonide [Rhinocort Allergy] 2 spr EA NOSTRIL DAILY PRN 12/21/17 [History] Fluticasone/Vilanterol [Breo Ellipta 100-25 Mcg Inhaler] 1 puff INHALATION RT- DAILY 12/21/17 [History] Omeprazole 20 mg PO DAILY 12/21/17 [History] Flecainide Acetate 100 mg PO DAILY PRN #15 tablet 12/24/17 [Rx] Metoprolol Tartrate [Lopressor] 25 mg PO DAILY PRN #15 tab 12/24/17 [Rx] Cephalexin [Keflex] 500 mg PO Q12HR 11/18/18 [History] Ibuprofen [Motrin] 600 mg PO TID PRN 11/18/18 [History] Follow up Appointment(s)/Referral(s): Roger Carrasco MD [Primary Care Provider] - 1-2 days Maximino Zaman MD [STAFF PHYSICIAN] - 11/25/18 2:15 pm Patient Instructions/Handouts: Urinary Tract Infection in Women (DC) Activity/Diet/Wound Care/Special Instructions: Patient will be admitted Discharge Disposition: HOME SELF-CARE
[2018-11-20 20:02] VITALS: BP 122/81; PULSE 79; TEMP 99.2
[2018-11-20 21:26] VITALS: RESP 16
== END 2018-11-20 21:00 | disposition home or self-care (01) | DRG 863 ==
LOC: EC 11:22 → 6PED 15:53 → 4SSUR 11-19 21:26
PROVIDERS: ADMIT Obstetrics & Gynecology Obstetrics; ATTEND Obstetrics & Gynecology Obstetrics
DX: T81.43XA Infection following a procedure, organ and space surgical site, initial encounter (principal); N39.0 Urinary tract infection, site not specified; N73.9 Female pelvic inflammatory disease, unspecified; I48.91 Unspecified atrial fibrillation; D64.9 Anemia, unspecified; G43.909 Migraine, unspecified, not intractable, without status migrainosus; G47.30 Sleep apnea, unspecified; J45.909 Unspecified asthma, uncomplicated; F17.200 Nicotine dependence, unspecified, uncomplicated; Z71.6 Tobacco abuse counseling; Z79.51 Long term (current) use of inhaled steroids; Z79.899 Other long term (current) drug therapy; Z87.11 Personal history of peptic ulcer disease; Z90.49 Acquired absence of other specified parts of digestive tract; Z98.890 Other specified postprocedural states; Z99.89 Dependence on other enabling machines and devices; Z90.710 Acquired absence of both cervix and uterus; Z86.59 Personal history of other mental and behavioral disorders; Z91.030 Bee allergy status; Z88.7 Allergy status to serum and vaccine; Z88.8 Allergy status to other drugs, medicaments and biological substances; Z91.048 Other nonmedicinal substance allergy status; Z82.49 Family history of ischemic heart disease and other diseases of the circulatory system; Z80.1 Family history of malignant neoplasm of trachea, bronchus and lung; Y83.6 Removal of other organ (partial) (total) as the cause of abnormal reaction of the patient, or of later complication, without mention of misadventure at the time of the procedure
CPT/HCPCS: 36415; 74177; 80053; 81001; 82150; 83690; 85025; 85027; 87077; 87086; 87186; 94640; 96365; 96375; 99285

== ENCOUNTER → 2019-03-10 | Outpatient (CLI) | payer BC ==
[2019-03-10 17:00] LABS: HCT 34.5 % (34.0-46.0); HGB 10.6 gm/dL (11.4-16.0); RBC 4.19 m/uL (3.80-5.40); WBC 6.6 k/uL (3.8-10.6)
[2019-03-10 17:01] LABS: Anisocytosis Slight; Hypochromasia Moderate; MCH 25.5 pg (25.0-35.0); MCHC 30.7 g/dL (31.0-37.0); MCV 82.2 fL (80.0-100.0); Mean Platelet Volume 6.8; Platelet Count 374 k/uL (150-450)
[2019-03-10 17:02] LABS: Basophils % (A) 0 %; Eosinophils # (A) 0.1 k/uL (0-0.7); Eosinophils % (A) 1 %; Lymphocytes # (A) 1.7 k/uL (1.0-4.8); Lymphocytes % (A) 26 %; Monocytes # (A) 0.5 k/uL (0-1.0); Monocytes % (A) 7 %; Neutrophils # (A) 4.2 k/uL (1.3-7.7); Neutrophils % (A) 64 %
[2019-03-11 00:52] LABS: % Iron Saturation 5.57 (12.00-45.00)
[2019-03-11 01:01] LABS: Ferritin 4.8 ng/mL (10.0-291.0)
== END | disposition home or self-care (01) ==
LOC: LABWHC1 16:21
PROVIDERS: ATTEND Internal Medicine Critical Care Medicine
DX: D50.9 Iron deficiency anemia, unspecified (principal)
CPT/HCPCS: 36415; 82728; 83540; 83550; 85025

== ENCOUNTER → 2019-03-11 | Outpatient (CLI) | payer BC ==
[2019-03-11 16:57] LABS: Chol/HDL Ratio 2.37; LDL Cholesterol,Calculated 63.6 mg/dL (0.0-131.0); VLDL Calculation 10.4 mg/dL (5.00-40.00)
== END | disposition home or self-care (01) ==
LOC: LABWHC1 08:49
PROVIDERS: ATTEND Physician Assistant
DX: E78.5 Hyperlipidemia, unspecified (principal); I48.91 Unspecified atrial fibrillation
CPT/HCPCS: 36415; 80061; 84443

== ENCOUNTER → 2019-03-17 | Outpatient (CLI) | payer BC ==
--- NOTE | 2019-03-18 07:49 | USB ---
Reason for exam: follow-up at short interval from prior study. History: Patient is nulliparous. Benign US biopsy breast VAD LT of the left breast, September 09, 2018. Taking hormonal contraceptives beginning at age 19. Physical Findings: Nurse did not find any significant physical abnormalities on exam. US Breast Limited LT Left limited breast ultrasound including focal area of concern, retroareolar and axilla demonstrates a 0.5 x 0.2 x 0.2cm oval, complex, cystic lesion at 12 o'clock prior biopsy site, smaller than prior of 0.6 x 0.4 x 0.7cm, a 0.5 x 0.5 x 0.2cm oval, cystic lesion at 12 o'clock, a 0.6 x 0.7 x 0.1cm oval, cystic lesion at 12 o'clock, a 0.3 x 0.4 x 0.3cm oval, cystic lesion at 3 o'clock and a 0.4 x 0.5 x 0.4cm oval, cystic cluster at 3 o'clock. These results were verbally communicated with the patient and result sheet given to the patient on 03/17/19. ASSESSMENT: Benign, BI-RAD 2 RECOMMENDATION: Return to routine screening mammogram schedule for both breasts. Back on schedule.
== END | disposition home or self-care (01) ==
LOC: RADUSWWP 14:13
PROVIDERS: ATTEND Surgery
DX: R92.8 Other abnormal and inconclusive findings on diagnostic imaging of breast (principal)

== ENCOUNTER 2019-08-29 20:48 | Emergency (ER) | payer BC ==
[2019-08-29 21:12] VITALS: PULSE 99; RESP 16
[2019-08-29] MEDS ORDERED: RABIES VACCINE (PCEC) 2.5 UNIT KIT IM ONE (21:26)
[2019-08-29] MEDS ORDERED: RABIES IMMUNE GLOB 300 UNIT/ML 1 ML VIAL IM ONE (21:26)
[2019-08-29] MEDS ORDERED: RABIES IMMUNE GLOB 300 UNIT/ML 5 ML VIAL IM ONE (22:00)
--- NOTE | 2019-08-29 22:14 | ED ---
General Adult HPI - General Chief complaint: Extremity Injury, Upper Stated complaint: [facility] sent for a rabies shot Time Seen by Provider: 08/29/19 21:06 Source: patient Mode of arrival: ambulatory Limitations: no limitations - History of Present Illness Initial comments: Patient is a 44-year-old female presenting to the emergency Department with complaints of a cat bite to the right hand. Patient states she went to [facility] and already received a tetanus shot, antibiotics, wound care. Patient states they sent her into the ER for rabies vaccine. Patient states she was trying to remove the kitten from a car when it bit her. Patient has a superficial wound to the right thumb as well as the right index finger. She thinks the kitten cannot be more than 6-8 weeks old. It is a stray so she is not aware of the vaccination status. She denies fever or chills. She has no other complaints at this time. - Related Data Home Medications Medication Instructions Recorded Confirmed Acetaminophen Tab [Tylenol Tab] 1,000 mg PO Q6HR PRN 12/21/17 11/18/18 Budesonide [Rhinocort Allergy] 2 spr EA NOSTRIL DAILY PRN 12/21/17 11/18/18 Fluticasone/Vilanterol [Breo 1 puff INHALATION RT-DAILY 12/21/17 11/18/18 Ellipta 100-25 Mcg Inhaler] Omeprazole 20 mg PO DAILY 12/21/17 11/18/18 Cephalexin [Keflex] 500 mg PO Q12HR 11/18/18 11/18/18 Ibuprofen [Motrin] 600 mg PO TID PRN 11/18/18 11/18/18 Previous Rx's Medication Instructions Recorded Flecainide Acetate 100 mg PO DAILY PRN #15 tablet 12/24/17 Metoprolol Tartrate [Lopressor] 25 mg PO DAILY PRN #15 tab 12/24/17 Allergies Allergy/AdvReac Type Severity Reaction Status Date / Time Tetanus Vaccines and Toxoid Allergy severe Verified 11/18/18 17:16 [Tetanus Vaccines & Toxoid] swelling and redness venom-honey bee Allergy Anaphylaxis Verified 11/18/18 17:16 [bee venom (honey bee)] Androgenic Anabolic Steroid AdvReac Mild Itching Verified 11/18/18 17:16 adhesive AdvReac Itching,gwen Verified 08/19/19 17:16 h Review of Systems ROS Statement: Those systems with pertinent positive or pertinent negative responses have been documented in the HPI. ROS Other: All systems not noted in ROS Statement are negative. Past Medical History Past Medical History: Atrial Fibrillation, Asthma, Chest Pain / Angina, Sleep Apnea/CPAP/BIPAP, Supraventricular Tachycardia (SVT), Syncope Additional Past Medical History / Comment(s): 2004 pt changed light bulb at work and was eletricuted-pt states caused problems with afib /svt/palpitations/depression and dry eyes. migraines, sinus problems, pre- ulcers as a child. recent episode of severe chest pain-tests were neg for cardiac per pt, mild anemia History of Any Multi-Drug Resistant Organisms: None Reported Past Surgical History: Hysterectomy Additional Past Surgical History / Comment(s): right knee arthroscopy, D&C with hysteroscopy, wisdom teeth heart ablation Past Anesthesia/Blood Transfusion Reactions: Motion Sickness, Postoperative Nausea & Vomiting (PONV) Additional Past Anesthesia/Blood Transfusion Reaction / Comment(s): Pt states she woke during cardiac ablation. Past Psychological History: No Psychological Hx Reported Smoking Status: Never smoker Past Alcohol Use History: None Reported Past Drug Use History: None Reported - Past Family History Father History Unknown: Yes Family Medical History: Hypertension Additional Family Medical History / Comment(s): Paternal grandfathe had lung cancer. Mother Family Medical History: No Reported History Additional Family Medical History / Comment(s): Maternal grandmother had heart problems and a pacer. General Exam - General Exam Comments Initial Comments: GENERAL: Well-appearing, well-nourished and in no acute distress. HEAD: Atraumatic, normocephalic. EYES: Pupils equal round and reactive to light, extraocular movements intact, sclera anicteric, conjunctiva are normal. ENT: TMs normal, nares patent, oropharynx clear without exudates. Moist mucous membranes. NECK: Normal range of motion, supple without lymphadenopathy or JVD. LUNGS: Breath sounds clear to auscultation bilaterally and equal. No wheezes rales or rhonchi. HEART: Regular rate and rhythm without murmurs, rubs or gallops. ABDOMEN: Soft, nontender, normoactive bowel sounds. No guarding, no rebound. No masses appreciated. : Deferred EXTREMITIES: Normal range of motion, no pitting or edema. No clubbing or cyanosis. NEUROLOGICAL: Normal speech, normal gait. PSYCH: Normal mood, normal affect. SKIN: Warm, Dry, normal turgor. Patient has a superficial abrasion to the right thumb. Patient has 2 puncture wounds on the right index finger. There is no active bleeding. Limitations: no limitations Course Vital Signs 08/29/19 08/29/19 21:07 22:56 Temperature 99.1 F 98.9 F Pulse Rate 99 99 Respiratory 16 16 Rate Blood Pressure 136/98 136/89 O2 Sat by Pulse 97 Oximetry Medical Decision Making - Medical Decision Making Patient is a 44-year-old female here after a cat bite to her right index and right thumb. She was sent from [facility] who already gave patient tetanus shot, cleaned the wound, sent for Augmentin. Patient is simply here for rabies vaccine. Vaccine was administered. Patient be given prescription to continue the vaccine on day 3, day 7, day 14. Patient in agreement with this plan of care. Return parameters were discussed with the patient she verbalized understanding. Patient is stable for discharge. Disposition Clinical Impression: Cat bite of right hand Disposition: HOME SELF-CARE Condition: Stable Instructions (If sedation given, give patient instructions): Rabies Vaccine (ED) Additional Instructions: Please return to the Emergency Department if symptoms worsen or any other concerns. Continue with rabies vaccine on day 3, day 7, day 14 as prescribed. Keep wound clean and dry. Continue with already prescribed antibiotics. Is patient prescribed a controlled substance at d/c from ED?: No Referrals: Roger Carrasco MD [Primary Care Provider] - 1-2 days
[2019-08-29 23:00] VITALS: BP 136/89; TEMP 98.9
== END 2019-08-29 23:00 | disposition home or self-care (01) ==
LOC: EC 20:48
DX: S60.470A Other superficial bite of right index finger, initial encounter (principal); S60.371A Other superficial bite of right thumb, initial encounter; I25.2 Old myocardial infarction; G47.30 Sleep apnea, unspecified; J45.909 Unspecified asthma, uncomplicated; Z79.51 Long term (current) use of inhaled steroids; Z88.7 Allergy status to serum and vaccine; Z91.030 Bee allergy status; Z88.8 Allergy status to other drugs, medicaments and biological substances; Z99.89 Dependence on other enabling machines and devices; Z20.3 Contact with and (suspected) exposure to rabies; W55.01XA Bitten by cat, initial encounter; Y93.89 Activity, other specified
CPT/HCPCS: 90375; 90675; 96372; 99283

== ENCOUNTER → 2019-09-01 | Outpatient (CLI) | payer BC | END | disposition home or self-care (01) | LOC: LABWHC1 09:10 | PROVIDERS: ATTEND Specialist/Technologist Athletic Trainer | DX: Z53.9 Procedure and treatment not carried out, unspecified reason (principal) ==

== ENCOUNTER 2019-12-20 09:15 | Emergency (ER) | payer BC ==
[2019-12-20 09:21] VITALS: BP 118/85; PULSE 83; RESP 18; TEMP 98.9
--- NOTE | 2019-12-20 09:29 | ED ---
General Adult HPI - General Chief complaint: Extremity Injury, Lower Stated complaint: Ankle Injury(home) Time Seen by Provider: 12/20/19 09:22 Source: patient, RN notes reviewed Mode of arrival: ambulatory Limitations: no limitations - History of Present Illness Initial comments: Patient is a pleasant 44-year-old female presenting to the emergency Department with complaints of right ankle discomfort. Onset of symptoms was yesterday around 3:00. There was a closed that the patient did trip over. Patient twisted her ankle. Patient is able to bear weight with discomfort. Discomfort does radiate towards the calf and lezama. Discomfort does increase with ambulation. No history of chronic ankle problems. No head injury or loss of consciousness. No neck or back pain. No abdominal pain. - Related Data Home Medications Medication Instructions Recorded Confirmed Acetaminophen Tab [Tylenol Tab] 1,000 mg PO Q6HR PRN 12/21/17 09/12/19 Budesonide [Rhinocort Allergy] 2 spr EA NOSTRIL DAILY PRN 12/21/17 09/12/19 Fluticasone/Vilanterol [Breo 1 puff INHALATION RT-DAILY 12/21/17 09/12/19 Ellipta 100-25 Mcg Inhaler] Omeprazole 20 mg PO DAILY 12/21/17 09/12/19 Cephalexin [Keflex] 500 mg PO Q12HR 11/18/18 09/12/19 Ibuprofen [Motrin] 600 mg PO TID PRN 11/18/18 09/12/19 Previous Rx's Medication Instructions Recorded Flecainide Acetate 100 mg PO DAILY PRN #15 tablet 12/24/17 Metoprolol Tartrate [Lopressor] 25 mg PO DAILY PRN #15 tab 12/24/17 Ibuprofen [Motrin] 600 mg PO Q6HR PRN #20 tab 12/20/19 Allergies Allergy/AdvReac Type Severity Reaction Status Date / Time Tetanus Vaccines and Toxoid Allergy severe Verified 12/20/19 09:21 [Tetanus Vaccines & Toxoid] swelling and redness venom-honey bee Allergy Anaphylaxis Verified 12/20/19 09:21 [bee venom (honey bee)] Androgenic Anabolic Steroid AdvReac Mild Itching Verified 12/20/19 09:21 adhesive AdvReac Itching,gwen Verified 12/20/19 09:21 h Review of Systems ROS Statement: Those systems with pertinent positive or pertinent negative responses have been documented in the HPI. ROS Other: All systems not noted in ROS Statement are negative. Constitutional: Denies: fever Eyes: Denies: eye pain ENT: Denies: ear pain Respiratory: Denies: cough Cardiovascular: Denies: chest pain Endocrine: Denies: fatigue Gastrointestinal: Denies: abdominal pain Genitourinary: Denies: dysuria Musculoskeletal: Reports: as per HPI Skin: Denies: rash Neurological: Denies: weakness Past Medical History Past Medical History: Atrial Fibrillation, Asthma, Chest Pain / Angina, Sleep Apnea/CPAP/BIPAP, Supraventricular Tachycardia (SVT), Syncope Additional Past Medical History / Comment(s): 2005 pt changed light bulb at work and was eletricuted-pt states caused problems with afib/svt/palpitations/depression and dry eyes. migraines, sinus problems, pre- ulcers as a child. recent episode of severe chest pain-tests were neg for cardiac per pt, mild anemia History of Any Multi-Drug Resistant Organisms: None Reported Past Surgical History: Hysterectomy Additional Past Surgical History / Comment(s): right knee arthroscopy, D&C with hysteroscopy, wisdom teeth heart ablation Past Anesthesia/Blood Transfusion Reactions: Motion Sickness, Postoperative Nausea & Vomiting (PONV) Additional Past Anesthesia/Blood Transfusion Reaction / Comment(s): Pt states she woke during cardiac ablation. Past Psychological History: No Psychological Hx Reported Smoking Status: Never smoker Past Alcohol Use History: None Reported Past Drug Use History: None Reported - Past Family History Father History Unknown: Yes Family Medical History: Hypertension Additional Family Medical History / Comment(s): Paternal grandfathe had lung cancer. Mother Family Medical History: No Reported History Additional Family Medical History / Comment(s): Maternal grandmother had heart problems and a pacer. General Exam Limitations: no limitations General appearance: alert, in no apparent distress Head exam: Present: atraumatic, normocephalic Eye exam: Present: normal appearance Neck exam: Present: normal inspection. Absent: tenderness Respiratory exam: Present: normal lung sounds bilaterally Cardiovascular Exam: Present: regular rate, normal rhythm Expanded Peripheral pulses: 2+: Posterior Tibialis (R) GI/Abdominal exam: Present: soft. Absent: tenderness Extremities exam: Present: tenderness (Right ankle with mild lateral swelling. Moderate tenderness lateral and medial ankle. No foot tenderness. No other extremity tenderness.) Neurological exam: Present: alert. Absent: motor sensory deficit Psychiatric exam: Present: normal affect, normal mood Skin exam: Present: normal color. Absent: rash Course Vital Signs 12/20/19 09:18 Temperature 98.9 F Pulse Rate 83 Respiratory 18 Rate Blood Pressure 118/85 O2 Sat by Pulse 99 Oximetry Medical Decision Making - Medical Decision Making Patient reevaluated and updated. Patient is made aware of mild discrepancy with x-ray. - Radiology Data Radiology results: image reviewed (Right ankle x-ray read as no acute process. There is a tiny spur right medial malleolus they do question partial hairline injury.) Disposition Clinical Impression: Ankle sprain Disposition: HOME SELF-CARE Condition: Stable Instructions (If sedation given, give patient instructions): Ankle Sprain (ED) Additional Instructions: Please follow-up with primary care physician or orthopedics in the next few days for recheck. Ice to affected area. Return for difficulty walking, increased pain or swelling, worsening symptoms or other concerns. Use ankle splint. Prescription written for crutches. Prescription was sent to [facility] Is patient prescribed a controlled substance at d/c from ED?: No Referrals: Roger Carrasco MD [Primary Care Provider] - 1-2 days Jairo Sheridan DO [Doctor of Osteopathic Medicine] - 1-2 days Time of Disposition: 10:04
--- NOTE | 2019-12-20 09:56 | XR ---
EXAMINATION TYPE: XR ankle complete RT DATE OF EXAM: 12/20/2019 CLINICAL HISTORY: Tripping injury with pain and swelling. TECHNIQUE: Frontal, lateral and oblique images of the right ankle are obtained. COMPARISON: None. FINDINGS: There is no acute fracture/dislocation evident in the right ankle. The ankle mortise appe ars within normal limits. Small spur from the medial malleolus. Small spur from the inferior calcaneu s. Hindfoot structures show mild narrowing and spurring. Overlying soft tissue is unremarkable. IMPRESSION: There is no acute fracture or dislocation in the right ankle.
[2019-12-20] MEDS ORDERED: IBUPROFEN 600 MG STARTER PACK 4 TAB BTL PO STA (10:05)
== END 2019-12-20 10:10 | disposition home or self-care (01) ==
LOC: EC 09:15
DX: S93.401A Sprain of unspecified ligament of right ankle, initial encounter (principal); J45.909 Unspecified asthma, uncomplicated; G47.33 Obstructive sleep apnea (adult) (pediatric); Z99.89 Dependence on other enabling machines and devices; Z88.7 Allergy status to serum and vaccine; Z91.030 Bee allergy status; Z91.048 Other nonmedicinal substance allergy status; Z86.69 Personal history of other diseases of the nervous system and sense organs; X50.1XXA Overexertion from prolonged static or awkward postures, initial encounter
CPT/HCPCS: 99283

== ENCOUNTER → 2020-08-27 | Outpatient (CLI) | payer BC ==
[2020-08-28 05:32] LABS: Cat Epith & Dander IgE <0.10 kU/L; Dermato. farinae IgE <0.10 kU/L; Dog Dander IgE <0.10 kU/L
[2020-08-28 05:33] LABS: Aspergillus fumagatus IgE <0.10 kU/L; Cladosporian herbarum IgE <0.10 kU/L; Cockroach IgE <0.10 kU/L
[2020-08-28 05:34] LABS: Alternaria alternata IgE <0.10 kU/L; Maple (Box Elder) IgE <0.10 kU/L
[2020-08-28 05:35] LABS: Birch IgE <0.10 kU/L; Elm IgE <0.10 kU/L; Oak IgE <0.10 kU/L; Ragweed,Common IgE <0.10 kU/L
[2020-08-28 05:36] LABS: Red Top (Bentgrass) IgE <0.10 kU/L
[2020-08-28 05:37] LABS: Clam IgE <0.10 kU/L
[2020-08-28 05:38] LABS: Egg White IgE <0.10 kU/L; Scallop IgE <0.10 kU/L; Walnut IgE (Food) <0.10 kU/L
[2020-08-28 05:39] LABS: Codfish IgE <0.10 kU/L
[2020-08-28 05:40] LABS: Peanut IgE 0.26 kU/L; Shrimp IgE <0.10 kU/L; Soybean IgE <0.10 kU/L
[2020-08-28 06:11] LABS: Immunoglobulin E 4.53 IU/mL (0.00-114.00); Immunoglobulin E 5.09 IU/mL (0.00-114.00)
== END | disposition home or self-care (01) ==
LOC: LABWHC1 15:46
PROVIDERS: ATTEND Nurse Practitioner Adult Health
DX: J45.909 Unspecified asthma, uncomplicated (principal)
CPT/HCPCS: 36415; 82785; 86003

== ENCOUNTER 2020-09-01 11:16 | Day surgery (SDC) | payer BC ==
[2020-08-31 09:02] VITALS: BMI 36.6
[~2020-09-01 11:16] MED LIST changes: +ALBUTEROL NEB (CONC) 2.5 MG/0.5 ML INHALATION ONE; -DEXAMETHASONE SOD PHOSPHATE 10 MG/ML 1 ML VIAL IV ONE; -HYDROmorphone 0.5 MG/0.5 ML SYRINGE IVP PRN; -LIDOCAINE 1% 20 ML VIAL (10MG/ML) FOR IV START INTRADERMA PRN; +LIDOCAINE 2% (PF) 20 MG/ML 5 ML VIAL INHALATION ONE; +LIDOCAINE VISCOUS 300 MG/15 ML CUP MUCOUS MEM ONE; -MIDAZOLAM 2 MG/2 ML VIAL IV PRN; -ONDANSETRON 4 MG/2 ML VIAL IVP ONE; -SCOPOLAMINE 1.5MG/72HR PATCH TRANSDERM ONE; +SODIUM CHLORIDE 0.9% 1,000 ML IV SCH
[2020-09-01] MEDS ORDERED: LIDOCAINE 1% (10MG/ML) FOR IV START INTRADERMA PRN (11:41)
[2020-09-01] MEDS ORDERED: LACTATED RINGERS 1,000 ML IV SCH (11:41)
[2020-09-01 11:57] VITALS: TEMP 97.9
[2020-09-01 12:02] LABS: Glucose,Whole Blood 87 mg/dL (75-99)
[2020-09-01] MEDS ORDERED: fentaNYL (PF) 50 MCG/ML 2 ML AMP ONE (12:16)
[2020-09-01] MEDS ORDERED: LIDOCAINE 1% INJ 10MG/ML (20 ML MDV) ONE (12:16)
[2020-09-01] MEDS ORDERED: PROPOFOL 10 MG/ML 20 ML VIAL IV ONE (12:16)
[2020-09-01] MEDS ORDERED: MIDAZOLAM 2 MG/2 ML VIAL ONE (12:16)
[2020-09-01] MEDS ORDERED: LIDOCAINE 2% INJ 20 MG/ML INTRATRACH ONE (12:35)
--- NOTE | 2020-09-01 12:49 | P.PCN ---
Date of Procedure: 09/01/20 Preoperative Diagnosis: Chronic cough Moderate severe asthma COVID 19 infection (07/01/2020) Postoperative Diagnosis: Chronic cough Moderate severe asthma COVID 19 infection (07/01/2020) Diffuse tracheobronchitis, possible viral Procedure(s) Performed: Bronchoscopy, airway inspection, BAL of the lingula Anesthesia: MAC Surgeon: Marley Cole Repair Welder #1: Almaz Chaudhary Estimated Blood Loss (ml): 0 Pathology: other Condition: stable Disposition: same day Operative Findings: Indication for bronchoscopy: Chronic cough This procedure was done in the endoscopy suite. The patient was given conscious sedation with a combination of Versed, fentanyl and propofol. after achieving adequate sedation, the flexible bronchoscope was inserted through the right nostril and was advanced an and upper airway inspection was done. the posterior oropharynx was within normal limits. There was some dynamic collapse secondary to collapsibility of the upper airways and possible obstructive sleep apnea. The epiglottis was identified. The vallecula, arytenoids and the true/false Vocal cords were all within normal limits. no polyps. No lesions. No evidence of any postnasal drainage. No erythema or inflammation of the vocal cords. the vocal cord abduction and abduction was within normal limits. A total of 2 mL of 1% lidocaine was applied to the vocal cords and following that the bronchoscope was advanced into the subglottic trachea. An airway inspection was done. There was a mild tracheo bronchomalacia with dynamic collapse of the airway with cough and exhalation. This was minimal. Lidocaine was applied within the trachea. Airway inspection was completed. The trachea was patent within normal limits. Bilateral mainstem bronchi were also patent normal limits. The right upper lobe bronchus was trifurcated. The bronchus intermedius, right middle lobe and right lower lobe bronchus and the various segments of the right lung were patent and within normal limits. Examination of the left-sided included the left mainstem bronchus, left upper lobe bronchus and left lower and the various 8segments of the left lung were also patent within normal limits. There were some looseness for secretions there were essentially clear. However, the underlying bronchial mucosa was while flying especially in the left side involving the left lower lobe and lingular segments. No major endobronchial tumors or lesions or foreign bodies. No anatomic abnormalities within the airways. The bronchoscope was wedged in the superior segment of the lingula and a bronchioalveolar lavage was done. A total of 120 was infused and 25 mL was suctioned back and this was a nonbloody cloudy aspirates. Therapeutic it was suctioning was done. The bronchoscope was removed Assessment Chronic cough , Likely postinfectious in nature based on the abnormalities identified. the bronchial mucosa was quite inflamed an erythematous. doubt bacterial infection. Favor post viral infections. Bronchial asthma moderately severe Post COVID-19 infection back in 07/01/2020 PLAN: we will be awaiting the results of the bronchioloalveolar lavage. Will place the patient on Prednisone 20 mg daily for the next 2 weeks and gradually tapered off Continue with Breo Ellipta 1 inhalation a day regarding chronic asthma promethazine to suppress the patient's cough 5 mL up to 4 times a day obtain a chest x-ray Reassured the patient knowing that the airway inspection revealed a postinfectious mucosal abnormalities. Otherwise no other major abnormalities identified. Follow-up in the office
[2020-09-01 12:54] VITALS: RESP 20
--- NOTE | 2020-09-01 13:21 | XR ---
EXAMINATION TYPE: XR chest 1V DATE OF EXAM: 09/01/2020 COMPARISON: NONE HISTORY: Post bronc TECHNIQUE: Single frontal view of the chest is obtained. FINDINGS: There is no focal air space opacity, pleural effusion, or pneumothorax seen. The cardiac silhouette size is within normal limits. The osseous structures are intact. Hypertrophic changes of the spine. IMPRESSION: No acute process.
[2020-09-01 13:28] VITALS: BP 108/75; PULSE 80
[2020-09-01 17:36] LABS: Color,BF Red
[2020-09-01 17:37] LABS: Appearance,BF Bloody; Nucleated Cells, Body Fluid 1500 /uL; RBC, Body Fluid 59250 /uL
[2020-09-01 17:39] LABS: Mononuclear WBC,Body Fluid 97 %; Polynuclear WBC,Body Fluid 3 %; Total Cells Counted,Body Fluid 100
== END 2020-09-01 13:59 | disposition home or self-care (01) ==
LOC: ORWHC2ENDO 11:16
PROVIDERS: ATTEND Internal Medicine Critical Care Medicine
DX: J40 Bronchitis, not specified as acute or chronic (principal); Z86.16 Personal history of COVID-19; I25.10 Atherosclerotic heart disease of native coronary artery without angina pectoris; I48.91 Unspecified atrial fibrillation; I47.1 Supraventricular tachycardia; G47.33 Obstructive sleep apnea (adult) (pediatric); R55 Syncope and collapse; F32.9 Major depressive disorder, single episode, unspecified; G43.909 Migraine, unspecified, not intractable, without status migrainosus; E66.9 Obesity, unspecified; Z68.35 Body mass index [BMI] 35.0-35.9, adult; Z79.51 Long term (current) use of inhaled steroids; Z79.52 Long term (current) use of systemic steroids; Z79.899 Other long term (current) drug therapy; Z91.030 Bee allergy status; Z91.09 Other allergy status, other than to drugs and biological substances; Z88.8 Allergy status to other drugs, medicaments and biological substances
CPT/HCPCS: 87798 ×3; 87496; 87498; 87529; 88108; 88305; 89050; 87252; 87502; 87634; 87070; 87205; 87116; 87102; 87206; 71045; 31624; J2001 ×2; J2250; J3010; J2704

== ENCOUNTER → 2020-10-13 | Outpatient (CLI) | payer BC ==
--- NOTE | 2020-10-15 12:23 | MM ---
Reason for exam: screening (asymptomatic). Last mammogram was performed 2 years and 1 month ago. History: Patient is nulliparous. Benign US biopsy breast VAD LT of the left breast, September 09, 2018. Taking hormonal contraceptives beginning at age 19. Physical Findings: A clinical breast exam by your physician is recommended on an annual basis and results should be correlated with mammographic findings. MG 3D Screening Mammo W/Cad Bilateral CC and MLO view(s) were taken. Prior study comparison: September 09, 2018, left breast MG diagnostic mammo LT wo CAD. August 19, 2018, left breast MG 3d work up w/cad LT. July 30, 2018, bilateral MG 3d screening mammo w/cad. May 30, 2017, bilateral MG 3d screening mammo w/cad. There are scattered fibroglandular densities. Finding: There are diffuse/scattered fine calcifications. Previous mammotome biopsy in the left breast. No significant changes in finding since September 09, 2018, August 19, 2018, July 30, 2018, and May 30, 2017. ASSESSMENT: Benign, BI-RAD 2 RECOMMENDATION: Routine screening mammogram of both breasts in 1 year.
== END | disposition home or self-care (01) ==
LOC: RADMAMWWP 16:43
PROVIDERS: ATTEND Obstetrics & Gynecology
DX: Z12.31 Encounter for screening mammogram for malignant neoplasm of breast (principal); Z79.3 Long term (current) use of hormonal contraceptives
CPT/HCPCS: 77063; 77067

== ENCOUNTER → 2021-04-18 | Outpatient (CLI) | payer BC ==
[2021-04-18 11:24] LABS: African American GFR (CKD) 87.8 (60.0-200.0); Albumin 4.1 g/dL (3.8-4.9); Albumin/Globulin Ratio 1.96 (1.60-3.17); Anion Gap 9.2 mmol/L (10.00-18.00); BUN/Creat Ratio 14.35 Ratio (12.00-20.00); Blood Urea Nitrogen 13.2 mg/dL (9.0-27.0); Calcium 9.4 mg/dL (8.7-10.3); Carbon Dioxide 23.3 mmol/L (20.0-27.5); Globulin 2.1 g/dL (1.6-3.3); Non-African American GFR(CKD) 75.7 (60.0-200.0); Potassium 4.3 mmol/L (3.5-5.5); Total Bilirubin 0.2 mg/dL (0.30-1.20); Total Protein 6.2 g/dL (6.2-8.2)
[2021-04-18 11:35] LABS: Chol/HDL Ratio 2.42 Ratio; LDL Cholesterol,Direct Reflex 72.4 mg/dL (0.00-129.00)
== END | disposition home or self-care (01) ==
LOC: LABWHC1 07:22
PROVIDERS: ATTEND Internal Medicine Clinical Cardiac Electrophysiology
DX: I48.0 Paroxysmal atrial fibrillation (principal); E03.9 Hypothyroidism, unspecified
CPT/HCPCS: 36415; 80053; 80061; 83721; 84443

== ENCOUNTER → 2021-05-18 | Outpatient (CLI) | payer BC | END | disposition home or self-care (01) | LOC: LABWHC1 07:42 | PROVIDERS: ATTEND Otolaryngology | DX: J30.89 Other allergic rhinitis (principal) | CPT/HCPCS: 36415 ==

== ENCOUNTER 2021-06-12 10:51 | Emergency (ER) | payer BC, OTHER ==
[2021-06-12 11:00] VITALS: TEMP 98.2
[2021-06-12 11:21] VITALS: BP 132/94; PULSE 86; RESP 16
--- NOTE | 2021-06-12 12:11 | XR ---
Cervical spine. HISTORY: Pain following trauma. Fall COMPARISON: None. TECHNIQUE: 6 views of cervical spine were obtained. FINDINGS: The craniovertebral junction relationships and prevertebral soft tissues are normal. The graft the ce rvical vertebral segments are normal in height and alignment and there is no fracture or subluxation. There is moderate degenerative disease at C5-6 level with moderate spondylosis and disc space narrow ing. There is very mild bony neural foraminal encroachment at C5-6 bilaterally. The remaining neuroforamin a are widely patent. IMPRESSION: No evidence of acute trauma. Degenerative changes at C5-6 described above.
--- NOTE | 2021-06-12 12:12 | XR ---
Left shoulder. HISTORY: Pain following a fall. COMPARISON: None TECHNIQUE: 3 views left shoulder were obtained. FINDINGS: There is no fracture, dislocation, intraosseous or intra-articular abnormality with exception of mild degenerative changes acromioclavicular joint. There is no radiopaque foreign body or abnormal soft t issue calcification. IMPRESSION: No evidence of acute trauma. Mild degenerative change of the AC joint.
--- NOTE | 2021-06-12 12:14 | XR ---
Left forearm. HISTORY: Pain following a fall. COMPARISON: None. TECHNIQUE: 2 views left forearm were obtained. FINDINGS: There is no fracture, focal intraosseous abnormality, cortical disruption or periosteal reaction. The re is no radiopaque foreign body or soft tissue gas. IMPRESSION: No significant abnormality seen.
--- NOTE | 2021-06-12 12:27 | ED ---
General Adult HPI - General Chief complaint: Fall Stated complaint: Fall/[facility] Time Seen by Provider: 06/12/21 11:07 Source: patient Mode of arrival: ambulatory Limitations: no limitations - History of Present Illness Initial comments: This 46-year-old male presents emergency Department with left forearm and shoulder pain after a fall yesterday after she slipped on ice yesterday. Patient states she was going to step out of her truck last night when she hit her forearm, and then left shoulder on the step of her truck. Patient states she did hit the left back of her head on the plastic rail/step last but denies any loss of consciousness, blood thinners, headache, dizziness or change in vision. Patient states she does not want a computed tomography scan of her brain because she does not want radiation. Patient states she does have full sensation and range of motion intact of left arm, elbow, shoulder and neck. Patient denies any neurologic symptoms such as numbness or tingling or any signs of radiculopathy. Patient states she does have a little bit of muscle soreness in her cervical area but denies any cervical spine tenderness. Patient denies any chest pain, shortness of breath, abdominal pain, nausea, vomiting, weakness, lightheadedness, dizziness, change in vision. Patient states she does have a history of low back pain but denies any change. She denies any saddle anesthesia, bowel or bladder retention/incontinence or any cauda equina symptoms. - Related Data Home Medications Medication Instructions Recorded Confirmed Acetaminophen Tab [Tylenol Tab] 1,000 mg PO Q6HR PRN 12/21/17 09/01/20 Fluticasone/Vilanterol [Breo 1 puff INHALATION RT-DAILY 12/21/17 09/01/20 Ellipta 100-25 Mcg Inhaler] Omeprazole 20 mg PO DAILY 12/21/17 09/01/20 Albuterol Inhaler [Ventolin Hfa 1 puff INHALATION DAILY PRN 08/31/20 09/01/20 Inhaler] Albuterol Nebulized (Conc) 2.5 mg INHALATION Q6H PRN 08/31/20 09/01/20 [Ventolin Nebulized (Conc)] Cefuroxime Axetil [Ceftin] 500 mg PO BID 08/31/20 09/01/20 EPINEPHrine (Auto Inject) [Epipen] 0.3 mg IM ONCE PRN 08/31/20 09/01/20 Montelukast [Singulair] 10 mg PO HS 08/31/20 09/01/20 Multivitamins, Thera [Multivitamin 1 tab PO DAILY 08/31/20 09/01/20 (formulary)] Vitamin C/Biotin [Hair, Skin and 1 tab PO DAILY 08/31/20 09/01/20 Nails] predniSONE 10 mg PO DAILY 08/31/20 09/01/20 Previous Rx's Medication Instructions Recorded Flecainide Acetate 100 mg PO DAILY PRN #15 tablet 12/24/17 Metoprolol Tartrate [Lopressor] 25 mg PO DAILY PRN #15 tab 12/24/17 Cyclobenzaprine [Flexeril] 10 mg PO TID #15 tab 06/12/21 Allergies Allergy/AdvReac Type Severity Reaction Status Date / Time Tetanus Vaccines and Toxoid Allergy severe Verified 09/01/20 11:57 [Tetanus Vaccines & Toxoid] swelling and redness venom-honey bee Allergy Anaphylaxis Verified 09/01/20 11:57 [bee venom (honey bee)] Androgenic Anabolic Steroid AdvReac Mild Itching Verified 09/01/20 11:57 adhesive AdvReac Itching,gwen Verified 09/01/20 11:57 h Review of Systems ROS Statement: Those systems with pertinent positive or pertinent negative responses have been documented in the HPI. ROS Other: All systems not noted in ROS Statement are negative. Past Medical History Past Medical History: Atrial Fibrillation, Asthma, Chest Pain / Angina, Sleep Apnea/CPAP/BIPAP, Supraventricular Tachycardia (SVT), Syncope Additional Past Medical History / Comment(s): 2005 pt changed light bulb at work and was eletricuted-pt states caused problems with afib/svt/palpitations/depression and dry eyes. migraines, sinus problems, pre- ulcers as a child. recent episode of severe chest pain-tests were neg for cardiac per pt, mild anemia History of Any Multi-Drug Resistant Organisms: None Reported Past Surgical History: Hysterectomy Additional Past Surgical History / Comment(s): right knee arthroscopy, D&C with hysteroscopy, wisdom teeth heart ablation Past Anesthesia/Blood Transfusion Reactions: Motion Sickness, Postoperative Naus ea & Vomiting (PONV) Additional Past Anesthesia/Blood Transfusion Reaction / Comment(s): Pt states she woke during cardiac ablation. Past Psychological History: No Psychological Hx Reported Smoking Status: Never smoker Past Alcohol Use History: None Reported Past Drug Use History: None Reported - Past Family History Father History Unknown: Yes Family Medical History: Hypertension Additional Family Medical History / Comment(s): Paternal grandfathe had lung cancer. Mother Family Medical History: No Reported History Additional Family Medical History / Comment(s): Maternal grandmother had heart problems and a pacer. General Exam Limitations: no limitations General appearance: alert, in no apparent distress Head exam: Present: atraumatic, normocephalic, normal inspection Eye exam: Present: normal appearance, PERRL, EOMI. Absent: scleral icterus, conjunctival injection, periorbital swelling Pupils: Present: normal accommodation ENT exam: Present: normal exam, mucous membranes moist Neck exam: Present: normal inspection. Absent: tenderness, meningismus, lymphadenopathy Respiratory exam: Present: normal lung sounds bilaterally. Absent: respiratory distress, wheezes, rales, rhonchi, stridor Cardiovascular Exam: Present: regular rate, normal rhythm, normal heart sounds. Absent: systolic murmur, diastolic murmur, rubs, gallop, clicks GI/Abdominal exam: Present: soft, normal bowel sounds. Absent: distended, tenderness, guarding, rebound, rigid Extremities exam: Present: normal inspection (Patient without any erythema, bruising, warmth to left hand, wrist, forearm, elbow, shoulder, neck. Patient does have mild cervical paraspinal tenderness on the left side.), full ROM (Patient able to raise left arm anteriorly and laterally up to her ear, however she does have pain when doing so in her shoulder. No clavicle tenderness. No scapular tenderness.), normal capillary refill, other (Patient with full range of motion of neck, left arm, shoulder, elbow, wrist, and fingers. Patient is neurologically intact. Patient with full sensation and radial and ulnar pulses intact. Patient does have pain with raising her left arm up above her head anteriorly and laterally). Absent: tenderness, pedal edema, joint swelling, calf tenderness Back exam: Present: normal inspection, full ROM, paraspinal tenderness (Patient with minimal tenderness to left paraspinal cervical area. No vertebral tenderness to palpation of cervical, thoracic or lumbar spine). Absent: CVA tenderness (R), CVA tenderness (L), vertebral tenderness Neurological exam: Present: alert, oriented X3, CN II-XII intact Psychiatric exam: Present: normal affect, normal mood Skin exam: Present: warm, dry, intact, normal color. Absent: rash Course Vital Signs 06/12/21 06/12/21 10:58 11:17 Temperature 98.2 F Pulse Rate 82 86 Respiratory 18 16 Rate Blood Pressure 147/98 132/94 O2 Sat by Pulse 98 94 L Oximetry Medical Decision Making - Medical Decision Making This 46-year-old female presents to the emergency Department with left forearm and shoulder pain that began yesterday after slipping and falling on ice. Patient neurologically intact. Left forearm, shoulder and cervical spine x-ray without any acute abnormalities present. Patient given left shoulder sling and instructed to use for 3-5 days. Patient likely with musculoskeletal pain due to fall. Instructed patient to use Motrin 400 for symptomatic relief as directed. Flexeril prescribed to patient. Patient to follow up with her primary care provider in next 1-2 days and see orthopedics in the next week if no improvement. Strict return precautions were discussed. Patient verbally agreed to plan. Patient instructed to perform shoulder, elbow and wrist when he exercises daily. Instructed patient to ice, rest and elevate left forearm and shoulder. Patient sent home in stable condition. Case discussed with my attending, . - Radiology Data Radiology results: report reviewed, image reviewed Disposition Clinical Impression: Left forearm pain, Left shoulder pain, Fall Disposition: HOME SELF-CARE Condition: Stable Instructions (If sedation given, give patient instructions): Fall Prevention (ED) Additional Instructions: Please follow-up with your primary care provider in next 1-2 days. If no improvement with your symptoms follow-up with orthopedics. Take Motrin as directed for pain. Take Flexeril as directed. Return to the emergency department with new, worsening, or concerning symptoms. Prescriptions: Cyclobenzaprine [Flexeril] 10 mg PO TID #15 tab Is patient prescribed a controlled substance at d/c from ED?: No Referrals: Roger Carrasco MD [Primary Care Provider] - 1-2 days Time of Disposition: 12:36
[2021-06-12] MEDS ORDERED: IBUPROFEN 400 MG TAB PO STA (12:40)
== END 2021-06-12 12:58 | disposition home or self-care (01) ==
LOC: EC 10:51
DX: M25.512 Pain in left shoulder (principal); M79.632 Pain in left forearm; J45.909 Unspecified asthma, uncomplicated; I48.91 Unspecified atrial fibrillation; Z79.51 Long term (current) use of inhaled steroids; Z79.52 Long term (current) use of systemic steroids; Z79.899 Other long term (current) drug therapy; W00.0XXA Fall on same level due to ice and snow, initial encounter
CPT/HCPCS: 72050; 99284

== ENCOUNTER → 2021-06-14 | Outpatient (CLI) | payer OTHER ==
--- NOTE | 2021-06-14 16:29 | XR ---
EXAMINATION TYPE: XR humerus LT DATE OF EXAM: 06/14/2021 CLINICAL HISTORY: Pain after fall injury a few days ago. TECHNIQUE: Two views of the left humerus are obtained. COMPARISON: Left shoulder x-ray 2 days ago. FINDINGS: There is no acute fracture or dislocation seen in the left humerus. The visualized portio n of left shoulder and elbow joints show some degenerative spurring. The overlying soft tissue appea rs within normal limits. IMPRESSION: No acute fracture or dislocation is evident in the left humerus.
== END | disposition home or self-care (01) ==
LOC: RADXRMAIN 15:54
PROVIDERS: ATTEND Emergency Medicine
DX: S49.92XA Unspecified injury of left shoulder and upper arm, initial encounter (principal); M25.512 Pain in left shoulder; W01.0XXA Fall on same level from slipping, tripping and stumbling without subsequent striking against object, initial encounter

== ENCOUNTER → 2021-06-22 | Outpatient (CLI) | payer OTHER ==
--- NOTE | 2021-06-22 09:49 | XR ---
EXAMINATION TYPE: XR humerus LT DATE OF EXAM: 06/22/2021 COMPARISON: 06/14/2021 HISTORY: Pain TECHNIQUE: 2 views submitted. FINDINGS: There is no acute fracture or dislocation seen in the left humerus. AC joint hypertrophic arthropathy . IMPRESSION: 1. No acute fracture or dislocation. 2. AC joint arthropathy. If concern for rotator cuff disease correlate with MRI as clinically warrant ed.
== END | disposition home or self-care (01) ==
LOC: RADXRMAIN 09:07
PROVIDERS: ATTEND Emergency Medicine
DX: M12.812 Other specific arthropathies, not elsewhere classified, left shoulder (principal)

== ENCOUNTER → 2021-07-20 | Outpatient (CLI) | payer OTHER ==
--- NOTE | 2021-07-21 00:28 | MR ---
EXAMINATION TYPE: MR shoulder LT wo con DATE OF EXAM: 07/20/2021 COMPARISON: None HISTORY: Left shoulder and limited movement due to slip and fall at work 06-11-21. Multiplanar multi echo imaging of the left shoulder without contrast. The biceps tendon is intact. Subscapularis tendon is intact. Glenoid giovana appear intact. The supraspinatus tendon is intact. No retraction. There is hypertrophic spurring at the AC joint wit hout significant subacromial impingement. Humeral head is intact. No fracture seen. Scapula appears i ntact. The infraspinatus tendon appears intact. IMPRESSION: No evidence of rotator cuff tear. Hypertrophic spurring at the AC joint without subacromial impingeme nt.
== END | disposition home or self-care (01) ==
LOC: RADMRIMAIN 19:49
PROVIDERS: ATTEND Emergency Medicine
DX: M25.712 Osteophyte, left shoulder (principal)

== ENCOUNTER → 2021-12-29 | Outpatient (CLI) | payer BC ==
--- NOTE | 2021-12-30 08:41 | MM ---
Reason for Exam: Screening (asymptomatic). Last mammogram was performed 1 year(s) and 2 month(s) ago. Patient History: Menarche at age 12. Patient has no children. Hysterectomy at age 44. Perimenopausal. Currently using Hormonal Contraceptives, starting at age 19. 09/09/2018, Benign Core Biopsy on the left side. Risk Values: Peggy 5 year model risk: 1.5%. NCI Lifetime model risk: 14.1%. Prior Study Comparison: 04/10/2016 Bilateral Screening Mammogram, [facility]. 05/30/2017 Bilateral Screening Mammogram, [facility]. 07/30/2018 Bilateral Screening Mammogram, [facility]. 08/19/2018 Left Diagnostic Mammogram, [facility]. 09/09/2018 Left Diagnostic Mammogram, [facility]. 10/13/2020 Bilateral Screening Mammogram, [facility]. Tissue Density: The breast tissue is heterogeneously dense. This may lower the sensitivity of mammography. Findings: Analyzed By CAD. Mammotome biopsy clip in the left breast is redemonstrated. There are some scattered and loosely grouped benign-appearing small round calcifications bilaterally redemonstrated. There is no suspicious new group of microcalcifications or new distortion in either breast. Overall Assessment: Benign, BI-RAD 2 Management: Screening Mammogram of both breasts in 1 year. Some advise bilateral breast ultrasound surveillance in patients with background dense tissue. A clinical breast exam by your physician is recommended on an annual basis and results should be correlated with mammographic findings. Electronically signed and approved by: Delon Pearl M.D.
== END | disposition home or self-care (01) ==
LOC: RADMAMWWP 07:05
PROVIDERS: ATTEND Obstetrics & Gynecology
DX: Z12.31 Encounter for screening mammogram for malignant neoplasm of breast (principal); Z98.890 Other specified postprocedural states
CPT/HCPCS: 77063; 77067

== ENCOUNTER 2022-01-19 07:31 | Day surgery (SDC) | payer OTHER ==
--- NOTE | 2022-01-19 01:57 | HP ---
HISTORY AND PHYSICAL DATE OF SURGERY: 01/19/2022 HISTORY OF PRESENT ILLNESS: Mamta Ramirez is a 47-year-old patient seen with progressive left shoulder pain. We discussed options regarding treatment. She elected to proceed with left shoulder arthroscopy. Consent was obtained. PAST MEDICAL HISTORY: Asthma and atrial fibrillation. PAST SURGICAL HISTORY: Cholecystectomy, hysterectomy, knee arthroscopy, heart ablation, tonsillectomy. DAILY MEDICATIONS: 1. Ibuprofen. 2. Omeprazole. 3. Ventolin. 4. Naprosyn. ALLERGIES: TB serum. SOCIAL HISTORY: Denies tobacco use. PHYSICAL EXAMINATION: Evaluation of left shoulder: Flexion is 140 degrees. Abduction is 130 degrees. External rotation is 45 degrees with pain and weakness. She is tender along the anterolateral acromion rotator cuff insertion. Impingement positive at 90. Cross-body adduction sign is negative. Drop-arm sign is positive. Distal neurovascular exam is intact. IMAGING DATA: Radiographs of the left shoulder revealed a type 2 acromion along with some acromioclavicular joint osteoarthritis. A left shoulder MRI revealed acromioclavicular osteoarthritis and some spur formation. IMPRESSION: 1. Left shoulder impingement, possible rotator cuff tear. 2. Left shoulder acromioclavicular joint osteoarthritis. 3. Atrial fibrillation. PLAN: Left shoulder arthroscopy with subacromial decompression, possible arthroscopic rotator cuff repair, Mamie procedure and debridement. MMODL / IJN: [id number] /
[~2022-01-19 07:31] MED LIST changes: -ALBUTEROL NEB (CONC) 2.5 MG/0.5 ML INHALATION ONE; +DEXAMETHASONE SOD PHOSPHATE 4 MG/ML 1 ML VIAL IV ONE; +HYDROmorphone 0.5 MG/0.5 ML SYRINGE IVP PRN; +LACTATED RINGERS 1,000 ML IV SCH; +LIDOCAINE 1% (10MG/ML) FOR IV START INTRADERMA PRN; -LIDOCAINE 2% (PF) 20 MG/ML 5 ML VIAL INHALATION ONE; -LIDOCAINE VISCOUS 300 MG/15 ML CUP MUCOUS MEM ONE; +MIDAZOLAM 2 MG/2 ML VIAL IV PRN; +ONDANSETRON 4 MG/2 ML VIAL IVP ONE; -SODIUM CHLORIDE 0.9% 1,000 ML IV SCH
[2022-01-19] MEDS ORDERED: SCOPOLAMINE 1 MG/72 HR PATCH TRANSDERM ONE (08:42)
[2022-01-19] MEDS ORDERED: MIDAZOLAM 2 MG/2 ML VIAL IV ONE (08:49)
[2022-01-19] MEDS ORDERED: PROPOFOL 10 MG/ML 20 ML VIAL IV ONE (09:38)
[2022-01-19] MEDS ORDERED: SUCCINYLCHOLINE CHLORIDE 200 MG/10 ML VIAL IV ONE (09:38)
[2022-01-19] MEDS ORDERED: fentaNYL (PF) 50 MCG/ML 2 ML AMP ONE (09:38)
[2022-01-19] MEDS ORDERED: DEXAMETHASONE SOD PHOSPHATE 4 MG/ML 1 ML VIAL ONE (09:38)
[2022-01-19] MEDS ORDERED: MIDAZOLAM 2 MG/2 ML VIAL ONE (09:38)
[2022-01-19] MEDS ORDERED: ROPIVACAINE 5 MG/ML 30 ML VIAL ONE (09:38)
[2022-01-19] MEDS ORDERED: ALBUTEROL INHALER 60 PUFF/8 GM INHALER (MHU) INHALATION ONE (09:38)
[2022-01-19] MEDS ORDERED: LIDOCAINE 2% INJ 20 MG/ML (2 ML VIAL) ONE (09:38)
[2022-01-19] MEDS ORDERED: PHENYLEPHRINE-0.9% NACL SYG 1,000 MCG/10 ML SYRINGE ONE (09:38)
--- NOTE | 2022-01-19 10:54 | P.OP ---
Date of Procedure: 01/19/22 Preoperative Diagnosis: Left shoulder impingement Postoperative Diagnosis: 1. Left shoulder impingement 2. Left shoulder acromioclavicular joint osteoarthritis 3. 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 Left shoulder arthroscopic subacromial decompression 2. Left shoulder arthroscopic Mamie procedure Anesthesia: GETA, regional (Interscalene block) Surgeon: Jairo Sheridan Estimated Blood Loss (ml): 11 Pathology: none sent Condition: stable Disposition: PACU Indications for Procedure: 47-year-old patient seen with persistent left shoulder pain failing conservative treatment measures. After we discussed options, she elected to proceed with arthroscopy. Operative Findings: See description of procedure Description of Procedure: Patient underwent an interscalene block by department of anesthesia. The patient was then taken to the operative suite. The patient underwent a general anesthetic by the department of anesthesia. The patient was placed into a lateral position and secured. There was appropriate padding of the bony prominence. Left shoulder was then prepped and draped in normal sterile orthopedic fashion. We placed the extremity in 10 pounds of longitudinal traction. A posterior incision was now made for a posterior working portal site. The trocar and cannula were inserted into the glenohumeral joint. Arthroscopy was initiated. Spinal needle was now inserted anteriorly, to ascertain the anterior working portal site. An incision was now made in that area, a trocar was inserted followed by a probe. There was an area of grade 3 chondromalacia involving the inferior central aspect of the glenoid fossa measuring approximately 1 cm in diameter without significant osteochondral tearing along the periphery. The humeral head was unremarkable. The labrum was probed and was found to be stable. The biceps tendon and a little stable. There were no other abnormalities within the glenohumeral joint. Instruments were removed from the glenohumeral joint Utilizing the posterior working portal site, the trocar and cannula were inserted into the subacromial space. Arthroscopy initiated. I made an incision 2 fingerbreadths lateral to the acromion. I introduced my trocar followed by my ArthroCare ablator. I now began ablating thick subacromial bursal tissue, which exposed the undersurface of the anterior acromion. There was diminished subac romial space. There was a very prominent anterior acromion. A motorized bur was introduced and a subacromial decompression was performed. I also excised some osteophytes off the inferior aspect of the distal clavicle. The AC joint was visualized and noted to be fairly arthritic. The motorized bur was introduced in the anterior portal site and a Mamie procedure was performed without difficulty, decompressing the AC joint nicely. I turned my attention to the rotator cuff. There was an area of some superficial fraying along the distal supraspinatus tendon. I cleaned that up with a motorized shaver. I thoroughly probed the area and found no evidence for rotator cuff tendon tear, no perforation or other abnormality. Instruments now removed from the portal sites. All portal sites were approximated with nylon suture. Sterile dressings were applied followed by a shoulder sling. The patient was awakened, transferred to a bed, and taken to recovery in stable condition.
[2022-01-19 11:00] VITALS: TEMP 97.3
[2022-01-19 11:52] VITALS: RESP 16
[2022-01-19 12:45] VITALS: BP 126/91; PULSE 72
--- NOTE | 2022-01-19 19:53 | P.ANPRN ---
Procedure Note - Anesthesia - Nerve Block Performed Left Interscalene Single Time Out Performed: Yes Date of Procedure: 01/19/22 Procedure Start Time: 08:48 Procedure Stop Time: 08:52 Location of Patient: PreOp Indication: Acute Post-Operative Pain, Requested by Surgeon Sedation Type: Sedate with meaningful contact maintained Preparation: Sterile Prep Position: Supine Needle Types: Pajunk Needle Gauge: 21 Ultrasound used to visualize needle placement: Yes Ultrasound used to observe medication spread: Yes Blood Aspirated: No Pain Paresthesia on Injection Noted: No Resistance on Injection: Normal Image Stored and Saved: Yes Events: Uneventful and Well Tolerated (Ropivacaine 0.5% 20 mL plus dexamethasone 4 mg)
== END 2022-01-19 12:58 | disposition home or self-care (01) ==
LOC: OR 07:31
PROVIDERS: ATTEND Orthopaedic Surgery
DX: M75.42 Impingement syndrome of left shoulder (principal); M19.012 Primary osteoarthritis, left shoulder; M94.212 Chondromalacia, left shoulder; G89.18 Other acute postprocedural pain; M25.712 Osteophyte, left shoulder; J45.909 Unspecified asthma, uncomplicated; I48.91 Unspecified atrial fibrillation; Z90.49 Acquired absence of other specified parts of digestive tract; Z90.710 Acquired absence of both cervix and uterus; Z79.1 Long term (current) use of non-steroidal anti-inflammatories (NSAID); Z79.83 Long term (current) use of bisphosphonates; Z79.51 Long term (current) use of inhaled steroids; K21.9 Gastro-esophageal reflux disease without esophagitis; Z91.030 Bee allergy status; Z88.7 Allergy status to serum and vaccine; Z88.6 Allergy status to analgesic agent
CPT/HCPCS: 29826; 29824; 64415; 76942; J2250; J0330; J1100; J0690; J2405; J3010; J2795; J2370; J2704; J2001

== ENCOUNTER → 2022-03-29 | Outpatient (CLI) | payer BC ==
--- NOTE | 2022-03-29 12:25 | CT ---
EXAMINATION TYPE: CT neck chest w con DATE OF EXAM: 03/29/2022 COMPARISON: None HISTORY: left side of neck lump x2 months CT DLP: 2016.4 mGycm CONTRAST: Patient injected with 70 mL of Isovue 300. TECHNIQUE: Axial images at 3 mm thick sections. Reconstructed images in the coronal plane and sagitt al plane are reviewed. FINDINGS: Limited CT sections are obtained the lung apices. The lung apices appear clear. CT neck: The torus tubarius and fossa of Rosenmuller are normal. Cloth Doffer spaces are normal. Para nasal sinuses and mastoid air cells are clear. Near the level of the junction with the shoulder there is a BB marking palpable abnormality. There ar e scattered small nodules present may be small lymph nodes. These are not enlarged by CT criteria. Parotid glands appear normal and symmetrical. Submandibular glands, are normal. Parapharyngeal spac es are normal. No suspicious adenopathy is evident. The hypopharynx appears within normal limits. Vocal cord level appear symmetrical. Thyroid as visualized is normal. Osseous structures are normal. There is an air-fluid level within the left maxillary sinus. Correlate for acute sinusitis. Remaining paranasal sinuses appear clear. IMPRESSIONS: 1. Clinical correlation recommended for acute left maxillary sinusitis. 2. Scattered small lymph nodes at the location of the palpable region left neck mass. EXAMINATION TYPE: CT neck chest w con DATE OF EXAM: 03/29/2022 COMPARISON: 08/01/2013 HISTORY: left side of neck lump x2 months CT DLP: 2016.4 mGycm, Automated exposure control for dose reduction was used. CONTRAST: Performed injected with 70 mL of Isovue 300. TECHNIQUE: Axial images were obtained at 5 mm thick sections. Reconstructed images are reviewed on [employer] computer in the coronal plane. FINDINGS: Portion of the thyroid visualized is normal. No suspicious lung nodules or focal infiltrates are present. No enlarged mediastinal or hilar adenopathy is evident. The ascending aorta diameter at the level o f the main pulmonary artery is 2.8 cm. The main pulmonary artery diameter at the bifurcation is 2.[address] sections are obtained through the upper abdomen. Abdomen is essentially unremarkable. The palpable region in the left neck is out of the [id number] on the CT chest images. IMPRESSIONS: 1. No suspicious acute changes CT chest.
== END | disposition home or self-care (01) ==
LOC: RADCTMAIN 07:32
PROVIDERS: ATTEND Internal Medicine Critical Care Medicine
DX: J01.00 Acute maxillary sinusitis, unspecified (principal); R91.8 Other nonspecific abnormal finding of lung field
CPT/HCPCS: 70491; 71260; Q9967

== ENCOUNTER → 2022-08-04 | Outpatient (CLI) | payer BC ==
[2022-08-05 13:40] LABS: HCT 42.7 % (37.2-46.3); HGB 14.5 g/dL (12.0-15.0); MCH 32.2 pg (27.0-32.0); MCV 94.7 fL (80.0-97.0); Mean Platelet Volume 10.1 fL (9.5-12.2); NRBC Per 100 WBC 0 /100 WBCS (0.0-0.0); Platelet Count 296 X 10*3/uL (140-440); RBC 4.51 X 10*6/uL (4.10-5.20); RDW 12.2 % (11.5-14.5); WBC 6.34 X 10*3/uL (4.50-10.00)
[2022-08-05 13:53] LABS: LDL Cholesterol,Calculated 74.7 mg/dL (0.0-131.0); VLDL Calculation 14.04 mg/dL (5.00-40.00)
[2022-08-05 13:54] LABS: ALT 26 U/L (8-44); AST 20 U/L (13-35); African American GFR (CKD) 100.2 (60.0-200.0); Albumin 4.2 g/dL (3.8-4.9); Albumin/Globulin Ratio 1.83 (1.60-3.17); Alkaline Phosphatase 55 U/L (41-126); BUN/Creat Ratio 18.29 Ratio (12.00-20.00); Calcium 9.5 mg/dL (8.7-10.3); Carbon Dioxide 23.2 mmol/L (20.0-27.5); Chloride 105 mmol/L (96-109); Globulin 2.3 g/dL (1.6-3.3); Glucose 97 mg/dL (70-110); Magnesium 1.7 mg/dL (1.5-2.4); Non-African American GFR(CKD) 86.4 (60.0-200.0); Sodium 138 mmol/L (135-145); Total Protein 6.4 g/dL (6.2-8.2)
== END | disposition home or self-care (01) ==
LOC: LABWHC1 11:21
PROVIDERS: ATTEND Nurse Practitioner Adult Health
DX: I10 Essential (primary) hypertension (principal); E78.5 Hyperlipidemia, unspecified; I48.0 Paroxysmal atrial fibrillation
CPT/HCPCS: 36415; 80053; 80061; 83735; 84443; 85027

== ENCOUNTER 2022-08-12 20:45 | Emergency (ER) | payer BC ==
[2022-08-12] MEDS ORDERED: KETOROLAC 15 MG/ML 1 ML VIAL IM STA (21:07)
--- NOTE | 2022-08-12 21:33 | XR ---
EXAMINATION TYPE: XR knee complete RT DATE OF EXAM: 08/12/2022 CLINICAL HISTORY: pain TECHNIQUE: Three views of the right knee are obtained. COMPARISON: None. FINDINGS: There is no acute fracture/dislocation. The tri-compartment joint spaces appear within no rmal limits. The overlying soft tissue appears unremarkable. IMPRESSION: There is no acute fracture or dislocation.ICD 10 NO FRACTURE, INITIAL EVALUATION
[2022-08-12] MEDS ORDERED: CEPHALEXIN 500 MG CAP PO STA (21:36)
[2022-08-12] MEDS ORDERED: ACET/COD 300 MG/30 MG STARTER PACK 6 TAB BTL PO STA (21:36)
--- NOTE | 2022-08-12 21:41 | ED ---
Lower Extremity Injury HPI - General Chief Complaint: Extremity Injury, Lower Stated Complaint: Right Swollen Knee Time Seen by Provider: 08/12/22 20:54 Source: patient Mode of arrival: ambulatory Limitations: no limitations - History of Present Illness Initial Comments: Patient is a 47-year-old female presents to the emergency department for right knee pain. Patient states she was hiking 3 weeks ago and afterwards felt soreness in her knee. She does not recall any injury. Pain is on the outside of the right knee. It usually occurs only with walking. Patient feels that her knee is swollen. She denies fever, chills, nausea, vomiting. Denies calf pain. Patient doesn't history of knee surgery in this knee several years ago. - Related Data Home Medications Medication Instructions Recorded Confirmed Fluticasone/Vilanterol [Breo 1 puff INHALATION RT-DAILY 12/21/17 01/19/22 Ellipta 100-25 Mcg Inhaler] Omeprazole 40 mg PO DAILY 12/21/17 01/19/22 Albuterol Inhaler [Ventolin Hfa 1 puff INHALATION DAILY PRN 08/31/20 01/19/22 Inhaler] Albuterol Nebulized (Conc) 2.5 mg INHALATION Q6H PRN 08/31/20 01/19/22 [Ventolin Nebulized (Conc)] EPINEPHrine (Auto Inject) [Epipen] 0.3 mg IM ONCE PRN 08/31/20 01/19/22 Multivitamins, Thera [Multivitamin 1 tab PO DAILY 08/31/20 01/19/22 (formulary)] Vitamin C/Biotin [Hair, Skin and 1 tab PO DAILY 08/31/20 01/19/22 Nails] Flecainide Acetate [Tambocor] 100 mg PO DAILY PRN 01/17/22 01/19/22 Losartan [Cozaar] 25 mg PO DAILY 01/17/22 01/19/22 Metoprolol Tartrate [Lopressor] 25 mg PO DAILY PRN 01/17/22 01/19/22 Naproxen Sodium [Aleve] 220 mg PO BID PRN 01/17/22 01/19/22 Previous Rx's Medication Instructions Recorded HYDROcodone/APAP 7.5-325MG [[place] 1 each PO Q6HR PRN #28 tab 01/19/22 7.5] Ibuprofen [Motrin] 800 mg PO Q8H PRN #40 tab 01/19/22 Cephalexin [Keflex] 500 mg PO Q6HR #20 cap 08/12/22 Ibuprofen [Motrin] 800 mg PO Q8HR PRN #30 tab 08/12/22 Allergies Allergy/AdvReac Type Severity Reaction Status Date / Time Tetanus Vaccines and Toxoid Allergy severe Verified 01/19/22 08:03 [Tetanus Vaccines & Toxoid] swelling and redness venom-honey bee Allergy Anaphylaxis Verified 01/19/22 08:03 [bee venom (honey bee)] Androgenic Anabolic Steroid AdvReac Mild Itching Verified 01/19/22 08:03 adhesive AdvReac Itching,gwen Verified 01/19/22 08:03 h Review of Systems ROS Statement: Those systems with pertinent positive or pertinent negative responses have been documented in the HPI. ROS Other: All systems not noted in ROS Statement are negative. Past Medical History Past Medical History: Atrial Fibrillation, Asthma, Chest Pain / Angina, Sleep Apnea/CPAP/BIPAP, Supraventricular Tachycardia (SVT), Syncope Additional Past Medical History / Comment(s): 2005 pt changed light bulb at work and was eletricuted-pt states caused problems with afib/svt/palpitations/depression and dry eyes. migraines, sinus problems, pre- ulcers as a child. recent episode of severe chest pain-tests were neg for cardiac per pt, mild anemia History of Any Multi-Drug Resistant Organisms: None Reported Past Surgical History: Hysterectomy Additional Past Surgical History / Comment(s): right knee arthroscopy, D&C with hysteroscopy, wisdom teeth heart ablation Past Anesthesia/Blood Transfusion Reactions: Motion Sickness, Postoperative Nausea & Vomiting (PONV) Additional Past Anesthesia/Blood Transfusion Reaction / Comment(s): Pt states she woke during cardiac ablation. Past Psychological History: No Psychological Hx Reported Smoking Status: Never smoker - Past Family History Father History Unknown: Yes Family Medical History: Hypertension Additional Family Medical History / Comment(s): Paternal grandfathe had lung cancer. Mother Family Medical History: No Reported History Additional Family Medical History / Comment(s): Maternal grandmother had heart problems and a pacer. General Exam Limitations: no limitations General appearance: alert, in no apparent distress Head exam: Present: atraumatic, normocephalic, normal inspection Eye exam: Present: normal appearance, PERRL, EOMI. Absent: scleral icterus, conjunctival injection, periorbital swelling Respiratory exam: Present: normal lung sounds bilaterally. Absent: respiratory distress, wheezes, rales, rhonchi, stridor Cardiovascular Exam: Present: regular rate, normal rhythm, normal heart sounds. Absent: systolic murmur, diastolic murmur, rubs, gallop, clicks Right Upper Leg exam: Present: normal inspection, full ROM. Absent: tenderness, swelling Knee exam: Present: tenderness (lateral knee ), erythema (inner knee with blanching and warmth. nontender), pain/laxity with varus (mild ), full knee extension. Absent: normal inspection, swelling, ecchymosis, deformity, effusion, posterior draw sign, pain/laxity with valgus Lower Leg exam: Present: normal inspection, full ROM. Absent: tenderness, swelling, erythema, palpable cord, Homans' sign Neurovascular tendon exam: Present: no vascular compromise Neurological exam: Present: alert, oriented X3, CN II-XII intact Psychiatric exam: Present: normal affect, normal mood Skin exam: Present: warm, dry, intact, normal color. Absent: rash Course Vital Signs 08/12/22 20:49 Temperature 98.3 F Pulse Rate 84 Respiratory 18 Rate Blood Pressure 145/80 O2 Sat by Pulse 99 Oximetry Medical Decision Making - Medical Decision Making Was pt. sent in by a medical professional or institution (Dr. PA, [employer], urgent care, hospital, or jail...) When possible be specific @ -No Did you speak to anyone other than the patient for history (EMS, parent, family, police, friend...)? What history was obtained from this source @ -No Did you review nursing and triage notes (agree or disagree)? Why? @ -I reviewed and agree with nursing and triage notes Were old charts reviewed (outside hosp., previous admission, EMS record, old EKG, old radiological studies, urgent care reports/EKG's, jail records)? Report findings @ -No old charts were reviewed Differential Diagnosis (chest pain, altered mental status, abdominal pain women, abdominal pain men, vaginal bleeding, weakness, fever, dyspnea, syncope, headache, dizziness, GI bleed, back pain, seizure, CVA, palpatations, mental health)? @ -Knee sprain, knee fracture, cellulitis, abscess. This list is not meant to be all-inclusive EKG interpreted by me (3pts min.). @ -As above X-rays interpreted by me (1pt min.). @ Yes, right knee x-ray negative for acute process CT interpreted by me (1pt min.). @ -None done U/S interpreted by me (1pt. min.). @ -None done What testing was considered but not performed or refused? (CT, X-rays, U/S, labs)? Why? @ -None What meds were considered but not given or refused? Why? @ -None Did you discuss the management of the patient with other professionals (professionals i.e. , PA, [employer], lab, RT, psych nurse, social media campaign manager, forestry workers, teacher, chief operating officer, special education case manager)? Give summary @ -No Was smoking cessation discussed for >3mins.? @ -No Was critical care preformed (if so, how long)? @ -No Were there social determinants of health that impacted care today? How? (Homelessness, low income, unemployed, alcoholism, drug addiction, casarez sportation, low edu. Level, literacy, decrease access to med. care, [facility], rehab)? @ -No Was there de-escalation of care discussed even if they declined (Discuss DNR or withdrawal of care, Hospice)? DNR status @ -No What co-morbidities impacted this encounter? (DM, HTN, Smoking, COPD, CAD, Cancer, CVA, ARF, Chemo, Hep., AIDS, mental health diagnosis, sleep apnea, morbid obesity)? @ -None Was patient admitted / discharged? Hospital course, mention meds given and route, prescriptions, significant lab abnormalities, going to OR and other pertinent info. @ -Patient presenting for right knee pain. Patient has questionable cellulitis of the right medial knee. No systemic signs or symptoms. There is erythema with blanching and some warmth without tenderness. Patient actually has pain to the lateral aspect of her knee. There is mild pain with varus stress otherwise no pain with range of motion. Neurovascularly intact. X-ray negative for fracture and other acute process. The knee was wrapped in Saulo bandage. Patient will rest, ice, elevate at home. Follow-up with customs import specialist she will follow-up with customs import specialist. She will also be sent home with Keflex for possible cellulitis Undiagnosed new problem with uncertain prognosis? @ -No Drug Therapy requiring intensive monitoring for toxicity (Heparin, Nitro, Insulin, Cardizem)? @ -No Were any procedures done? @ -No Diagnosis/symptom? @ -Right knee pain Acute, or Chronic, or Acute on Chronic? @ -acute Uncomplicated (without systemic symptoms) or Complicated (systemic symptoms)? @ -uncomplicated Side effects of treatment? @ -No Exacerbation, Progression, or Severe Exacerbation? @ -No Poses a threat to life or bodily function? How? (Chest pain, [place], [place], pneumonia, PE, COPD, DKA, ARF, appy, cholecystitis, CVA, Diverticulitis, Homicidal, Suicidal, threat to staff... and all critical care pts) @ -No Dr. Valle is my attending. Disposition Clinical Impression: Right knee pain Disposition: HOME SELF-CARE Condition: Good Instructions (If sedation given, give patient instructions): Knee Sprain (ED), Cellulitis (ED) Additional Instructions: Rest and elevate the joint as much as possible. Ice the injury for the next 24- 48 hours. If symptoms continue after, apply warm compress. Take Tylenol or Motrin as needed for pain. See Tylenol 3 for severe pain. Follow-up with orth opedic specialist in 1 to 2 days. Return to the emergency department if you experience new, concerning, or worsening symptoms. Prescriptions: Cephalexin [Keflex] 500 mg PO Q6HR #20 cap Ibuprofen [Motrin] 800 mg PO Q8HR PRN #30 tab PRN Reason: Pain Is patient prescribed a controlled substance at d/c from ED?: No Referrals: Roger Carrasco MD [Primary Care Provider] - 1-2 days Adam Coates DO [Doctor of Osteopathic Medicine] - 1-2 days Time of Disposition: 21:40
[2022-08-12 22:10] VITALS: BP 126/82; PULSE 67; RESP 16; TEMP 97.9
== END 2022-08-12 22:20 | disposition home or self-care (01) ==
LOC: EC 20:45
DX: M25.561 Pain in right knee (principal); I48.91 Unspecified atrial fibrillation; J45.909 Unspecified asthma, uncomplicated; G47.30 Sleep apnea, unspecified; Z79.51 Long term (current) use of inhaled steroids; Z79.899 Other long term (current) drug therapy; Z88.7 Allergy status to serum and vaccine; Z91.030 Bee allergy status; Z91.09 Other allergy status, other than to drugs and biological substances
CPT/HCPCS: 73562; 99283; 96372; J1885

== ENCOUNTER → 2023-01-01 | Outpatient (CLI) | payer BC ==
--- NOTE | 2023-01-02 21:01 | MM ---
Reason for Exam: Screening (asymptomatic). Last mammogram was performed 1 year(s) and 1 month(s) ago. Patient History: Menarche at age 12. Patient has no children. Hysterectomy at age 44. Perimenopausal. Currently using Hormonal Contraceptives, starting at age 19. 09/09/2018, Benign Core Biopsy on the left side. Risk Values: Peggy 5 year model risk: 1.6%. NCI Lifetime model risk: 13.9%. Prior Study Comparison: 09/09/2018 Left Diagnostic Mammogram, [facility]. 10/13/2020 Bilateral Screening Mammogram, [facility]. 12/29/2021 Bilateral MG 3D screening mammo w/cad, [facility]. Tissue Density: The breast tissue is heterogeneously dense. This may lower the sensitivity of mammography. Findings: Analyzed By CAD. Microclip left breast from prior biopsy. Bilateral regional punctate calcifications are redemonstrated. There is no suspicious group of microcalcifications or new suspicious mass in either breast. Overall Assessment: Benign, BI-RAD 2 Management: Screening Mammogram of both breasts in 1 year. . Patient should continue monthly self-breast exams. A clinical breast exam by your physician is recommended on an annual basis. This exam should not preclude additional follow-up of suspicious palpable abnormalities. Note on Peggy scores and lifetime risk: 1. A Peggy score greater than 3% is considered moderate risk. If this is the case, consider specialist referral to assess eligibility for a risk reducing agent. 2. If overall lifetime risk for the development of breast cancer is 20% or higher, the patient may qualify for future screening with alternating mammogram and breast MRI. Electronically signed and approved by: William Parker M.D. Radiologist
== END | disposition home or self-care (01) ==
LOC: RADMAMWWP 16:36
PROVIDERS: ATTEND Family Medicine
DX: Z12.31 Encounter for screening mammogram for malignant neoplasm of breast (principal)
CPT/HCPCS: 77063; 77067

== ENCOUNTER 2023-01-10 08:59 | Day surgery (SDC) | payer BC ==
[2023-01-03 15:53] VITALS: BMI 37.3
[~2023-01-10 08:59] MED LIST changes: -DEXAMETHASONE SOD PHOSPHATE 4 MG/ML 1 ML VIAL IV ONE; -HYDROmorphone 0.5 MG/0.5 ML SYRINGE IVP PRN; -MIDAZOLAM 2 MG/2 ML VIAL IV PRN; -ONDANSETRON 4 MG/2 ML VIAL IVP ONE
[2023-01-10 09:34] VITALS: TEMP 97.3
[2023-01-10] MEDS ORDERED: PROPOFOL 10 MG/ML 20 ML VIAL IV ONE (09:47)
--- NOTE | 2023-01-10 09:50 | P.GSHP ---
History of Present Illness H&P Date: 01/10/23 CHIEF COMPLAINT: Colon screen HISTORY OF PRESENT ILLNESS: The patient is a 48-year-old female who presents for colon screen. Lower endoscopy was offered for further evaluation and management. PAST MEDICAL HISTORY: Please see list. PAST SURGICAL HISTORY: Please see list. MEDICATIONS: Please see list. ALLERGIES: Please see list. SOCIAL HISTORY: No illicit drug use FAMILY HISTORY: No reports of Crohn disease or ulcerative colitis. REVIEW OF ORGAN SYSTEMS: CONSTITUTIONAL: No reports of fevers or chills. PHYSICAL EXAM: VITAL SIGNS: Stable GENERAL: Well-developed pleasant in no acute distress. HEENT: No scleral icterus. Extraocular movements grossly intact. Moist buccal mucosa. NECK: Supple without lymphadenopathy. CHEST: Unlabored respirations. Equal bilateral excursions. CARDIOVASCULAR: Regular rate and rhythm. Distal 2+ pulses. ABDOMEN: Soft, nontender, nondistended. MUSCULOSKELETAL: No clubbing, cyanosis, or edema. ASSESSMENT: 1. Colon screen. PLAN: 1. Recommend proceeding with a lower endoscopy Past Medical History Past Medical History: Atrial Fibrillation, Asthma, Chest Pain / Angina, Sleep Apnea/CPAP/BIPAP, Supraventricular Tachycardia (SVT), Syncope Additional Past Medical History / Comment(s): 2005 pt changed light bulb at work and was eletricuted-pt states caused problems with afib/svt/palpitations/depression and dry eyes. migraines, sinus problems, pre- ulcers as a child. recent episode of severe chest pain-tests were neg for cardiac per pt, mild anemia History of Any Multi-Drug Resistant Organisms: None Reported Past Surgical History: Adenoidectomy, Cholecystectomy, Hysterectomy Additional Past Surgical History / Comment(s): right knee arthroscopy, D&C with hysteroscopy, wisdom teeth heart ablation Past Anesthesia/Blood Transfusion Reactions: Motion Sickness, Postoperative Nausea & Vomiting (PONV) Additional Past Anesthesia/Blood Transfusion Reaction / Comment(s): Pt states she woke during cardiac ablation. Smoking Status: Never smoker - Past Family History Father History Unknown: Yes Family Medical History: Hypertension Additional Family Medical History / Comment(s): Paternal grandfathe had lung cancer. Mother Family Medical History: No Reported History Additional Family Medical History / Comment(s): Maternal grandmother had heart problems and a pacer. Medications and Allergies Home Medications Medication Instructions Recorded Confirmed Type Fluticasone/Vilanterol [Breo 1 puff INHALATION RT-DAILY 12/21/17 01/10/23 History Ellipta 100-25 Mcg Inhaler] Omeprazole 40 mg PO DAILY 12/21/17 01/10/23 History Albuterol Inhaler [Ventolin Hfa 1 puff INHALATION DAILY PRN 08/31/20 01/10/23 History Inhaler] Albuterol Nebulized (Conc) 2.5 mg INHALATION Q6H PRN 08/31/20 01/10/23 History [Ventolin Nebulized (Conc)] EPINEPHrine (Auto Inject) [Epipen] 0.3 mg IM ONCE PRN 08/31/20 01/10/23 History Multivitamins, Thera [Multivitamin 1 tab PO DAILY 08/31/20 01/10/23 History (formulary)] Vitamin C/Biotin [Hair, Skin and 1 tab PO DAILY 08/31/20 01/10/23 History Nails] Flecainide Acetate [Tambocor] 100 mg PO DAILY PRN 01/17/22 01/10/23 History Losartan [Cozaar] 25 mg PO DAILY 01/17/22 01/10/23 History Metoprolol Tartrate [Lopressor] 25 mg PO DAILY PRN 01/17/22 01/10/23 History Allergies Allergy/AdvReac Type Severity Reaction Status Date / Time Tetanus Vaccines and Toxoid Allergy severe Verified 01/10/23 09:33 [Tetanus Vaccines & Toxoid] swelling and redness venom-honey bee Allergy Anaphylaxis Verified 01/10/23 09:33 [bee venom (honey bee)] Androgenic Anabolic Steroid AdvReac Mild Itching Verified 01/10/23 09:33 adhesive AdvReac Itching,gwen Verified 01/10/23 09:33 h Surgical - Exam Vital Signs Temp Pulse Resp BP Pulse Ox 97.3 F L 82 16 136/92 97 01/10/23 09:28 01/10/23 09:28 01/10/23 09:28 01/10/23 09:28 01/10/23 09:28
--- NOTE | 2023-01-10 10:17 | P.PCN ---
Date of Procedure: 01/10/23 Description of Procedure: PREOPERATIVE DIAGNOSIS: Colonoscopy screening. Family history colon cancer POSTOPERATIVE DIAGNOSIS: Colonoscopy screening. Family history colon cancer OPERATION: Colonoscopy to the cecum, ileocecal valve and appendiceal orifice. SURGEON: Kyra Ruiz MD. ANESTHESIA: MAC. INDICATIONS: The patient is a 48-year-old female who presents for colonoscopy screening. Benefits and risks were described and informed consent was obtained. DESCRIPTION OF PROCEDURE: The patient had undergone Sutab prep. The patient had been brought into the operating room and laid in the left lateral decubitus position. After adequate intravenous sedation, the rectum was examined with 2% lidocaine jelly. No external hemorrhoids were encountered. The rectal tone was within normal limits. No lesions were palpated in the rectal vault. An Olympus colonoscope was advanced until the cecum, ileocecal valve and appendiceal orifice were clearly viewed. The prep was excellent. No scattered diverticulosis was encountered. No colonic polyps were found. No evidence of focal colitis was found. Retroflexion of the scope demonstrated grade 1 internal hemorrhoids without active bleeding or inflammation. The colon was desufflated. The patient had tolerated the procedure well. Withdrawal time was over 6 minutes. FINDINGS: Aronchick preparation quality scale (1-5) Internal hemorrhoids, grade 1 No external prolapsed hemorrhoids. No arteriovenous malformations. No adenomatous polyps. No focal colitis. RECOMMENDATIONS: Lower endoscopy 5 years, 2027 with family history of colon polyps or cancer. Plan - Discharge Summary Discharge Rx Participant: No New Discharge Prescriptions: Continue Fluticasone/Vilanterol [Breo Ellipta 100-25 Mcg Inhaler] 1 puff INHALATION RT-DAILY Omeprazole 40 mg PO DAILY Vitamin C/Biotin [Hair, Skin and Nails Chew] 1 tab PO DAILY Albuterol Inhaler [Ventolin Hfa Inhaler] 1 puff INHALATION DAILY PRN PRN Reason: Dyspnea Flecainide Acetate [Tambocor] 100 mg PO DAILY PRN PRN Reason: palpitations EPINEPHrine (Auto Inject) [Epipen] 0.3 mg IM ONCE PRN PRN Reason: Anaphylaxis Multivitamins, Thera [Multivitamin (formulary)] 1 tab PO DAILY Albuterol Nebulized (Conc) [Ventolin Nebulized (Conc)] 2.5 mg INHALATION Q6H PRN PRN Reason: Dyspnea Losartan [Cozaar] 25 mg PO DAILY Metoprolol Tartrate [Lopressor] 25 mg PO DAILY PRN PRN Reason: palpitations Discharge Medication List Fluticasone/Vilanterol [Breo Ellipta 100-25 Mcg Inhaler] 1 puff INHALATION RT- DAILY 12/21/17 [History] Omeprazole 40 mg PO DAILY 12/21/17 [History] Albuterol Inhaler [Ventolin Hfa Inhaler] 1 puff INHALATION DAILY PRN 08/31/20 [History] Albuterol Nebulized (Conc) [Ventolin Nebulized (Conc)] 2.5 mg INHALATION Q6H PRN 08/31/20 [History] EPINEPHrine (Auto Inject) [Epipen] 0.3 mg IM ONCE PRN 08/31/20 [History] Multivitamins, Thera [Multivitamin (formulary)] 1 tab PO DAILY 08/31/20 [History] Vitamin C/Biotin [Hair, Skin and Nails Chew] 1 tab PO DAILY 08/31/20 [History] Flecainide Acetate [Tambocor] 100 mg PO DAILY PRN 01/17/22 [History] Losartan [Cozaar] 25 mg PO DAILY 01/17/22 [History] Metoprolol Tartrate [Lopressor] 25 mg PO DAILY PRN 01/17/22 [History] Follow up Appointment(s)/Referral(s): Kyra Ruiz MD [STAFF PHYSICIAN] - As Needed Patient Instructions/Handouts: Moderate Sedation (DC) Activity/Diet/Wound Care/Special Instructions: Repeat colonoscopy 5 years2027 Discharge Disposition: HOME SELF-CARE
[2023-01-10 10:26] VITALS: BP 114/68; PULSE 70; RESP 20
== END 2023-01-10 10:36 | disposition home or self-care (01) ==
LOC: ORWHC2ENDO 08:59
PROVIDERS: ATTEND Surgery Plastic and Reconstructive Surgery
DX: Z12.11 Encounter for screening for malignant neoplasm of colon (principal); I48.91 Unspecified atrial fibrillation; J45.909 Unspecified asthma, uncomplicated; G47.30 Sleep apnea, unspecified; Z79.899 Other long term (current) drug therapy; Z80.0 Family history of malignant neoplasm of digestive organs; Z88.7 Allergy status to serum and vaccine; Z90.49 Acquired absence of other specified parts of digestive tract; Z91.030 Bee allergy status; Z79.51 Long term (current) use of inhaled steroids; Z88.8 Allergy status to other drugs, medicaments and biological substances
CPT/HCPCS: J2704; G0121

== ENCOUNTER → 2023-05-21 | Outpatient (CLI) | payer BC ==
--- NOTE | 2023-05-21 09:27 | MM ---
Reason for Exam: Clinical finding. Last screening mammogram was performed 4 month(s) ago. Indicated Problems: Pain of both sides (Focal) for 2 Month(s). Patient History: Menarche at age 12. Patient has no children. Hysterectomy at age 44. Perimenopausal. Currently using Hormonal Contraceptives, starting at age 19. 09/09/2018, Benign Core Biopsy on the left side. Risk Values: Peggy 5 year model risk: 1.5%. NCI Lifetime model risk: 13.6%. Prior Study Comparison: 05/30/2017 Bilateral Screening Mammogram, [facility]. 07/30/2018 Bilateral Screening Mammogram, [facility]. 08/19/2018 Left Diagnostic Mammogram, [facility]. 09/09/2018 Left Diagnostic Mammogram, [facility]. 10/13/2020 Bilateral Screening Mammogram, [facility]. 12/29/2021 Bilateral MG 3D screening mammo w/cad, [facility]. 01/01/2023 Bilateral MG 3D screening mammo w/cad, [facility]. Tissue Density: The breast tissue is heterogeneously dense. This may lower the sensitivity of mammography. Findings: Analyzed By CAD. Global asymmetry posterior upper-outer quadrant left breast is unchanged. An area of superior subareolar asymmetric density on the left MLO view disperses on additional views. Some regional punctate calcifications are redemonstrated. Microclip left breast from prior biopsy. No significant change from prior exams. Overall Assessment: Incomplete: need additional imaging evaluation, BI-RAD 0 Management: Diagnostic Breast Ultrasound of both breasts. Subareolar and periareolar for pain. Electronically signed and approved by: William Parker M.D. Radiologist
--- NOTE | 2023-05-21 09:50 | USB ---
Reason for Exam: Clinical finding. Patient History: Menarche at age 12. Patient has no children. Hysterectomy at age 44. Perimenopausal. Currently using Hormonal Contraceptives, starting at age 19. 09/09/2018, Benign Core Biopsy on the left side. Risk Values: Peggy 5 year model risk: 1.5%. NCI Lifetime model risk: 13.6%. Technique: Method: Targeted. Prior Study Comparison: 10/13/2020 Bilateral Screening Mammogram, [facility]. 12/29/2021 Bilateral MG 3D screening mammo w/cad, [facility]. 01/01/2023 Bilateral MG 3D screening mammo w/cad, [facility]. Findings: The periareolar of both breasts and the retroareolar of both breasts were scanned. Targeted ultrasound subareolar and periareolar bilateral breasts. On the right, there is asymmetrically greater degree of duct ectasia along with a 12:00 subareolar cyst measuring 7 x 7 x 6 mm. No internal filling defect is identified. No other solid lesion. On the left, lesser degree of duct ectasia is noted. No other solid or cystic lesion.. Overall Assessment: Benign, BI-RAD 2 Management: Screening Mammogram of both breasts in 1 year. Further clinical management of patient's radiating bilateral nipple pain. A clinical breast exam by your physician is recommended on an annual basis and results should be correlated with mammographic findings. This exam should not preclude additional follow-up of suspicious palpable abnormalities. Results were given to the patient verbally at the time of exam. Electronically signed and approved by: William Parker M.D. Radiologist
[2023-05-21 14:55] LABS: Basophils # (A) 0.05 X 10*3/uL (0.00-0.10); Basophils % (A) 0.8 %; Eosinophils # (A) 0.12 X 10*3/uL (0.04-0.35); Eosinophils % (A) 1.8 %; HGB 14.2 g/dL (12.0-15.0); Lymphocytes # (A) 1.34 X 10*3/uL (0.90-5.00); Lymphocytes % (A) 20.2 %; MCH 31.6 pg (27.0-32.0); MCV 95.6 FL (80.0-97.0); Mean Platelet Volume 10.7 FL (9.5-12.2); Monocytes # (A) 0.49 X 10*3/uL (0.20-1.00); Monocytes % (A) 7.4 %; NRBC Per 100 WBC 0 X 10*3/uL (0.00-0.01); Neutrophils # (A) 4.62 X 10*3/uL (1.80-7.70); Neutrophils % (A) 69.5 %; Platelet Count 316 X 10*3/uL (140-440); RDW 12.6 % (11.5-14.5); WBC 6.64 X 10*3/uL (4.50-10.00)
[2023-05-21 15:43] LABS: ALT 19 U/L (8-44); AST 18 U/L (13-35); Albumin 4.3 g/dL (3.8-4.9); Albumin/Globulin Ratio 1.79 Ratio (1.60-3.17); Alkaline Phosphatase 58 U/L (41-126); BUN/Creat Ratio 24.25 Ratio (12.00-20.00); Blood Urea Nitrogen 19.4 mg/dL (9.0-27.0); Calcium 9.3 mg/dL (8.7-10.3); Chloride 107 mmol/L (96-109); Globulin 2.4 g/dL (1.6-3.3); Glucose 97 mg/dL (70-110); Magnesium 1.9 mg/dL (1.5-2.4); Potassium 4.4 mmol/L (3.5-5.5); Sodium 141 mmol/L (135-145); Total Bilirubin 0.3 mg/dL (0.3-1.2); Total Protein 6.7 g/dL (6.2-8.2)
== END | disposition home or self-care (01) ==
LOC: RADMAMWWP 08:19
PROVIDERS: ATTEND Obstetrics & Gynecology
DX: N60.01 Solitary cyst of right breast (principal); N60.41 Mammary duct ectasia of right breast; N60.42 Mammary duct ectasia of left breast; R92.333 Mammographic heterogeneous density, bilateral breasts; E87.5 Hyperkalemia; I47.19 Other supraventricular tachycardia; I10 Essential (primary) hypertension
CPT/HCPCS: 77062; 77066; 80053; 83735; 84443; 85025

== ENCOUNTER → 2024-07-11 | Outpatient (CLI) | payer BC, OTHER ==
[2024-07-11 15:20] LABS: HCT 41.9 % (37.2-46.3); HGB 14.1 g/dL (12.0-15.0); MCH 31.3 pg (27.0-32.0); MCHC 33.7 g/dL (32.0-37.0); MCV 93.1 FL (80.0-97.0); Mean Platelet Volume 10.5 FL (9.5-12.2); NRBC Per 100 WBC 0 X 10*3/uL (0.00-0.01); Platelet Count 330 X 10*3/uL (140-440); RDW 12.1 % (11.5-14.5); WBC 6.91 X 10*3/uL (4.50-10.00)
[2024-07-11 15:21] LABS: Basophils # (A) 0.04 X 10*3/uL (0.00-0.10); Basophils % (A) 0.6 %; Eosinophils % (A) 1.4 %; Lymphocytes # (A) 1.77 X 10*3/uL (0.90-5.00); Lymphocytes % (A) 25.6 %; Monocytes # (A) 0.56 X 10*3/uL (0.20-1.00); Monocytes % (A) 8.1 %; Neutrophils # (A) 4.42 X 10*3/uL (1.80-7.70)
[2024-07-11 15:45] LABS: Carbon Dioxide 23.1 mmol/L (21.6-31.8); Chloride 104 mmol/L (96-109); HCG,Quantitative Serum <3.0 mIU/mL (0.0-6.0); Potassium 4.3 mmol/L (3.5-5.5); Sodium 139 mmol/L (135-145)
== END | disposition home or self-care (01) ==
LOC: LABPAT 10:50
PROVIDERS: ATTEND Orthopaedic Surgery
DX: Z01.812 Encounter for preprocedural laboratory examination (principal); M23.92 Unspecified internal derangement of left knee
CPT/HCPCS: 80051; 84702; 85025

== ENCOUNTER 2024-07-24 13:16 | Day surgery (SDC) | payer BC, OTHER ==
--- NOTE | 2024-07-23 22:31 | HP ---
HISTORY AND PHYSICAL DATE OF SURGERY: 07/24/2024. HISTORY OF PRESENT ILLNESS: Mamta Ramirez is a 49-year-old patient seen with progressive left knee pain. We discussed options regarding treatment. She elected to proceed with arthroscopy. Consent was obtained. PAST MEDICAL HISTORY: Atrial fibrillation, asthma, hypertension. PAST SURGICAL HISTORY: Cholecystectomy, hysterectomy, knee arthroscopy, cardiac ablation. DAILY MEDICATIONS: 1. Losartan. 2. Ibuprofen. 3. Ventolin. 4. Omeprazole. ALLERGIES: None. SOCIAL HISTORY: She denies tobacco use. PHYSICAL EVALUATION OF THE LEFT KNEE: Range of motion is -3/4 to 90 degrees. Mild to moderate effusion. Tenderness, medial joint line. Positive medial Naima's. Ligaments stable. Hip rotation without pain. Distal neurovascular exam intact. IMAGING STUDIES: Left knee radiographs revealed mild osteoarthritis. Left knee MRI revealed a complex medial meniscal tear. IMPRESSION: Internal derangement of left knee with medial meniscal tear. PLAN: Left knee arthroscopy with partial medial meniscectomy and debridement. MMODL / IJN: [id number] /
[~2024-07-24 13:16] MED LIST changes: -LACTATED RINGERS 1,000 ML IV SCH; +fentaNYL (PF) 50 MCG/ML 2 ML AMP IVP PRN
[2024-07-24] MEDS: IV FLUID CONTINUATION 1,000 ML IV ONE (13:37)
[2024-07-24] MEDS: LACTATED RINGERS 1,000 ML IV SCH (14:08)
[2024-07-24] MEDS: ONDANSETRON 4 MG/2 ML VIAL IVP ONE (14:09)
[2024-07-24] MEDS: DEXAMETHASONE SOD PHOSPHATE 4 MG/ML 1 ML VIAL IV ONE (14:10)
[2024-07-24] MEDS: MIDAZOLAM 2 MG/2 ML VIAL IV PRN (14:17)
[2024-07-24 14:25] VITALS: RESP 16
[2024-07-24] MEDS ORDERED: SUCCINYLCHOLINE CHLORIDE 200 MG/10 ML VIAL IV ONE (14:50)
[2024-07-24] MEDS ORDERED: fentaNYL (PF) 50 MCG/ML 2 ML AMP ONE (14:50)
[2024-07-24] MEDS ORDERED: LIDOCAINE 1% INJ 10MG/ML (20 ML MDV) ONE (14:50)
[2024-07-24] MEDS ORDERED: MIDAZOLAM 2 MG/2 ML VIAL ONE (14:50)
[2024-07-24] MEDS ORDERED: PROPOFOL 10 MG/ML 20 ML VIAL IV ONE (14:50)
[2024-07-24] MEDS: ceFAZolin 3 GM in SODIUM CHLORIDE 0.9% 100 ML IVPB PRN (14:58)
[2024-07-24] MEDS: BUPIVACAINE (PF) 0.25% 30 ML VIAL SQ ONE ×2 (15:19→15:31)
--- NOTE | 2024-07-24 15:45 | P.OP ---
Date of Procedure: 07/24/24 Preoperative Diagnosis: Internal derangement left knee Postoperative Diagnosis: 1. Tear medial and lateral meniscus left knee 2. Reactive synovitis medial, lateral and suprapatellar compartments left knee 3. Grade II chondromalacia patella left knee 4. Grade I/II chondromalacia medial femoral condyle left knee Procedure(s) Performed: 1. Arthroscopic partial medial and lateral meniscectomy left knee 2. Arthroscopic partial synovectomy medial, lateral and suprapatellar compartments left knee 3. Arthroscopic chondroplasty medial femoral condyle left knee 4. Arthroscopic chondroplasty patella left knee Anesthesia: BOA, local Surgeon: Jairo Sheridan Estimated Blood Loss (ml): 6 Pathology: none sent Condition: stable Disposition: PACU Indications for Procedure: 49-year-old patient seen with progressive left knee pain. After having treatment options discussed, she elected to proceed with arthroscopy. Operative Findings: See description of procedure Description of Procedure: Patient was taken to the operative suite. Patient underwent a general anesthetic by the department of anesthesia. Patient was given preoperative antibiotics. The left lower extremity was placed in a well-padded arthroscopic leg nunez. The left leg was prepped and draped in the normal sterile orthopedic fashion. A lateral parapatellar and suprapatellar incision was made. Trochars were inserted. Arthroscopy was initiated. Suprapatellar pouch revealed diffuse thick reactive synovitis. The patellofemoral joint appeared to articulate congruently. There there was grade II chondromalacia of the patella with osteochondral flap tears as well as grade I chondromalacia of the femoral sulcus. The scope was guided into the medial gutter. No loose bodies or plica were identified. The scope was then guided into the medial compartment. A medial parapatellar incision was made. Trocar inserted followed by probe. There was a complex tear involving the posterior horn and mid body area of the medial meniscus. There were grade I/II chondromalacia changes medial femoral condyle with some osteochondral flap tears present. There was thick reactive synovitis anteriorly. I performed a partial medial meniscectomy getting down to stable meniscal tissue. I performed a chondroplasty of the medial femoral condyle getting down to stable osteochondral tissue. I performed a partial synovectomy decompressing the reactive synovitis. The residual meniscus was probed and was found to be stable. The residual osteochondral surface was stable. There was good decompression of the synovitis. Scope and probe were then guided into the intercondylar notch. Cruciates were identified, probed and found to be stable. The scope and probe were then guided into lateral compartment. There was a radial tear mid body lateral meniscus. There were grade I chondromalacia changes lateral compartment without tears. There was thick reactive synovitis anteriorly. I performed a partial lateral meniscectomy getting down to stable meniscal tissue. I performed a partial synovectomy decompressing the reactive synovitis. The residual meniscus was probed and was found to be stable. There was good decompression of the synovitis. The scope was in guided back into the suprapatellar compartment. I introduced a motorized shaver into the suprapatellar compartment. I debrided some piecemeal fragments of meniscus that I encountered. I performed a partial synovectomy. The shaver was now removed. There was good decompression of the synovitis. I took 1 more look around the entire knee, no residual debris. Instruments were now removed from the joint. The joint was infiltrated with .25% Marcaine. Steri-Strips were applied to the portal sites. Sterile dressings were applied. The patient was placed into a STAR hose. No tourniquet was utilized. The patient was awakened, transferred to a bed and taken to recovery stable satisfactory condition.
[2024-07-24 15:46] VITALS: TEMP 97.8
[2024-07-24] MEDS: HYDROmorphone 0.5 MG/0.5 ML SYRINGE IVP PRN (16:24)
[2024-07-24] MEDS: ALBUTEROL NEBULIZED 2.5 MG/3 ML INHALATION STA (17:10)
[2024-07-24 17:50] VITALS: BP 129/81; PULSE 76
== END 2024-07-24 17:52 | disposition home or self-care (01) ==
LOC: OR 13:16
PROVIDERS: ATTEND Orthopaedic Surgery
DX: S83.282A Other tear of lateral meniscus, current injury, left knee, initial encounter (principal); S83.242A Other tear of medial meniscus, current injury, left knee, initial encounter; I10 Essential (primary) hypertension; I48.91 Unspecified atrial fibrillation; J45.909 Unspecified asthma, uncomplicated; M22.42 Chondromalacia patellae, left knee; M65.962 Unspecified synovitis and tenosynovitis, left lower leg; Z90.49 Acquired absence of other specified parts of digestive tract; Z90.710 Acquired absence of both cervix and uterus; Z79.1 Long term (current) use of non-steroidal anti-inflammatories (NSAID); Z79.899 Other long term (current) drug therapy; Z79.51 Long term (current) use of inhaled steroids; X58.XXXA Exposure to other specified factors, initial encounter
CPT/HCPCS: 29880; J2250; J0330; J1100; J0690; J2405; J2003; J3010; J2704; J1171; J0665

== ENCOUNTER 2024-09-18 09:51 | Emergency (ER) | payer BC ==
[2024-09-18 10:00] VITALS: BP 137/82; PULSE 80; TEMP 98.1
--- NOTE | 2024-09-18 10:24 | ED ---
ENT HPI - General Chief complaint: ENT Stated complaint: R ear foreign object Time Seen by Provider: 09/18/24 10:08 Source: patient, RN notes reviewed Mode of arrival: ambulatory Limitations: no limitations - History of Present Illness Initial comments: This is a 49-year-old female presenting for possible Q-tip swab in right ear. Patient states that this occurred this morning, noting entire cotton swab came off in her ear with some associated ear irritation (2/). Patient denies bleeding from ear canal, hearing changes. MD complaint: foreign body Onset/Timin -: minutes(s) Location: R ear Severity scale (1-10): 2 - Related Data Home Medications Medication Instructions Recorded Confirmed Omeprazole 40 mg PO DAILY 12/21/17 07/24/24 Albuterol Inhaler [Ventolin Hfa 1 puff INHALATION DAILY PRN 08/31/20 07/24/24 Inhaler] Albuterol Nebulized (Conc) 2.5 mg INHALATION Q6H PRN 08/31/20 07/24/24 [Ventolin Nebulized (Conc)] EPINEPHrine (Auto Inject) [Epipen] 0.3 mg IM ONCE PRN 08/31/20 07/24/24 Vitamin C/Biotin [Hair, Skin and 1 tab PO DAILY 08/31/20 07/24/24 Nails Chew] Flecainide Acetate [Tambocor] 100 mg PO DAILY PRN 01/17/22 07/24/24 Losartan [Cozaar] 25 mg PO DAILY 01/17/22 07/24/24 Metoprolol Tartrate [Lopressor] 25 mg PO DAILY PRN 01/17/22 07/24/24 Citalopram Hydrobromide 20 mg PO DAILY 07/21/24 07/24/24 [Citalopram HBr] Previous Rx's Medication Instructions Recorded HYDROcodone/APAP 5-325MG [[place] 1 tab PO Q6HR PRN #18 tab 07/24/24 5-325] Allergies Allergy/AdvReac Type Severity Reaction Status Date / Time Tetanus Vaccines and Toxoid Allergy severe Verified 09/18/24 10:00 [Tetanus Vaccines & Toxoid] swelling and redness venom-honey bee Allergy Anaphylaxis Verified 09/18/24 10:00 [bee venom (honey bee)] Androgenic Anabolic Steroid AdvReac Mild Itching Verified 09/18/24 10:00 adhesive AdvReac Itching,gwen Verified 09/18/24 10:00 h Review of Systems ROS Statement: Those systems with pertinent positive or pertinent negative responses have been documented in the HPI. ROS Other: All systems not noted in ROS Statement are negative. Past Medical History Past Medical History: Atrial Fibrillation, Asthma, Chest Pain / Angina, GERD/Reflux, Hypertension, Sleep Apnea/CPAP/BIPAP, Supraventricular Tachycardia (SVT), Syncope Additional Past Medical History / Comment(s): 2004 pt changed light bulb at work and was eletricuted-pt states caused problems with afib/svt/palpitations/depression and dry eyes. migraines, sinus problems, pre- ulcers as a child. hx episode of severe chest pain-tests were neg for cardiac per pt 2019, left knee pain. dx with light sleep apnea not recommended for cpap History of Any Multi-Drug Resistant Organisms: None Reported Past Surgical History: Adenoidectomy, Cardiac Ablation, Hysterectomy, Orthopedic Surgery Additional Past Surgical History / Comment(s): right knee arthroscopy, D&C with hysteroscopy, wisdom teeth. left shoulder surgery Past Anesthesia/Blood Transfusion Reactions: Motion Sickness, Postoperative Nausea & Vomiting (PONV) Additional Past Anesthesia/Blood Transfusion Reaction / Comment(s): Pt states she woke during cardiac ablation. Past Psychological History: Anxiety Smoking Status: Never smoker Past Alcohol Use History: None Reported Past Drug Use History: None Reported - Past Family History Father History Unknown: Yes Family Medical History: Hypertension Additional Family Medical History / Comment(s): Paternal grandfather had lung cancer. bile and colon cancer - recently 05/2024 Mother Family Medical History: No Reported History Additional Family Medical History / Comment(s): Maternal grandmother had emphysema COPD. grandfather ? blood clots to heart General Exam Limitations: no limitations General appearance: alert, in no apparent distress Head exam: Present: atraumatic, normocephalic, normal inspection Eye exam: Present: normal appearance, PERRL, EOMI. Absent: scleral icterus, conjunctival injection, periorbital swelling ENT exam: Present: normal exam, mucous membranes moist, TM's normal bilaterally, normal external ear exam, other (No obvious foreign body/cotton seen in right ear canal despite rigorous and thorough visualization of the entirety of canal) Neck exam: Present: normal inspection. Absent: tenderness, meningismus, lymphadenopathy Respiratory exam: Present: normal lung sounds bilaterally. Absent: respiratory distress, wheezes, rales, rhonchi, stridor Cardiovascular Exam: Present: regular rate, normal rhythm, normal heart sounds. Absent: systolic murmur, diastolic murmur, rubs, gallop, clicks GI/Abdominal exam: Present: soft, normal bowel sounds. Absent: distended, tenderness, guarding, rebound, rigid Extremities exam: Present: normal inspection, full ROM, normal capillary refill. Absent: tenderness, pedal edema, joint swelling, calf tenderness Back exam: Present: normal inspection Neurological exam: Present: alert, oriented X3, CN II-XII intact Psychiatric exam: Present: normal affect, normal mood Skin exam: Present: warm, dry, intact, normal color. Absent: rash Course Vital Signs 09/18/24 09/18/24 09:58 10:39 Temperature 98.1 F Pulse Rate 80 Respiratory 20 16 Rate Blood Pressure 137/82 O2 Sat by Pulse 99 Oximetry Medical Decision Making - Medical Decision Making Was pt. sent in by a medical professional or institution (, PA, ACCOUNT FINANCIAL MANAGER, urgent care, hospital, or [place] [facility] facility...) When possible be specific @ -No Did you speak to anyone other than the patient for history (EMS, parent, family, police, friend...)? What history was obtained from this source @ -No Did you review nursing and triage notes (agree or disagree)? Why? @ -I reviewed and agree with nursing and triage notes Were old charts reviewed (outside hosp., previous admission, EMS record, old EKG, old radiological studies, urgent care reports/EKG's, [place] health care facility records)? Report findings @ -No old charts were reviewed Differential Diagnosis (chest pain, altered mental status, abdominal pain women, abdominal pain men, vaginal bleeding, weakness, fever, dyspnea, syncope, headache, dizziness, GI bleed, back pain, seizure, CVA, palpatations, mental health, musculoskeletal)? @ -Ear canal foreign body, AOM, otitis externa, cholesteatoma, mastoiditis, this is not an exhaustive list EKG interpreted by me (3pts min.). @ -Not done X-rays interpreted by me (1pt min.). @ -None done CT interpreted by me (1pt min.). @ -None done U/S interpreted by me (1pt. min.). @ -None done What testing was considered but not performed or refused? (CT, X-rays, U/S, labs)? Why? @ -None What meds were considered but not given or refused? Why? @ -None Did you discuss the management of the patient with other professionals (keeley reich i.e. , PA, ACCOUNT FINANCIAL MANAGER, lab, RT, psych nurse, social work specialist, technician helper instrument, teacher, global safety officer, case supervisor)? Give summary @ -No Was smoking cessation discussed for >3mins.? @ -No Was critical care preformed (if so, how long)? @ -No Were there social determinants of health that impacted care today? How? (Homelessness, low income, unemployed, alcoholism, drug addiction, transportation, low edu. Level, literacy, decrease access to med. care, longterm, rehab)? @ -No Was there de-escalation of care discussed even if they declined (Discuss DNR or withdrawal of care, Hospice)? DNR status @ -No What co-morbidities impacted this encounter? (DM, HTN, Smoking, COPD, CAD, Cancer, CVA, ARF, Chemo, Hep., AIDS, mental health diagnosis, sleep apnea, morbid obesity)? @ -None Was patient admitted / discharged? Hospital course, mention meds given and route, prescriptions, significant lab abnormalities, going to OR and other pertinent info. @ -Despite thorough examination of right ear canal, no cotton swab or foreign body/cerumen was visualized in ear canal. TM appears intact without erythema, bulging. Ear flushed with normal saline by nurse for patient peace of mind prior to discharge. Advise follow-up with PCP for any ongoing concerns. Discussed patient with Dr. Garcia. Undiagnosed new problem with uncertain prognosis? @ -No Drug Therapy requiring intensive monitoring for toxicity (Heparin, Nitro, Insulin, Cardizem)? @ -No Were any procedures done? @ -No Diagnosis/symptom? @ -Examination for foreign body in ear canal Acute, or Chronic, or Acute on Chronic? @ -Acute Uncomplicated (without systemic symptoms) or Complicated (systemic symptoms)? @ -Uncomplicated Side effects of treatment? @ -No Exacerbation, Progression, or Severe Exacerbation? @ -No Poses a threat to life or bodily function? How? (Chest pain, [place], MD, pneumonia, PE, COPD, DKA, ARF, appy, cholecystitis, CVA, Diverticulitis, Homicidal, Suicidal, threat to staff... and all critical care pts) @ -No Disposition Clinical Impression: Normal ear exam Disposition: HOME SELF-CARE Condition: Good Additional Instructions: Follow-up with primary care for any ongoing irritation in ear canal Is patient prescribed a controlled substance at d/c from ED?: No Referrals: Roger Carrasco MD [Primary Care Provider] - 1-2 days Time of Disposition: 10:23
[2024-09-18 10:40] VITALS: RESP 16
== END 2024-09-18 10:40 | disposition home or self-care (01) ==
LOC: EC 09:51
DX: T16.1XXA Foreign body in right ear, initial encounter (principal); Z88.7 Allergy status to serum and vaccine; Z91.030 Bee allergy status; Z88.8 Allergy status to other drugs, medicaments and biological substances
CPT/HCPCS: 99283

== ENCOUNTER → 2024-09-29 | Outpatient (CLI) | payer BC ==
--- NOTE | 2024-09-29 15:06 | US ---
EXAMINATION TYPE: US extremity nonvasc mass RT DATE OF EXAM: 09/29/2024 COMPARISON: NONE CLINICAL INDICATION: Female, 49 years old with history of R22.31 SWELLING OF RT UPPER ARM; Lump on ri ght forearm for 1 year TECHNIQUE: Grayscale and color Doppler images were taken at the patient's area of concern FINDINGS: An isoechoic area was visualized on the right forearm measuring 2.5 x 0.9 x 2.0 cm. The ar ea is compressible. Likely Lipoma. IMPRESSION: Fat-containing lesion in the area of palpable abnormality most consistent with a lipoma. [facility], , 09/29/2024 3:04 PM
== END | disposition home or self-care (01) ==
LOC: RADUSWWP 14:20
PROVIDERS: ATTEND Family Medicine
DX: R22.31 Localized swelling, mass and lump, right upper limb (principal)